=== PATIENT | male | born 1940 | race Caucasian/White ===

== ENCOUNTER → 2017-10-28 | Outpatient (CLI) | payer MEDICARE ==
[~2017-10-28] MED LIST: ACET500 PO; ASPI81CH PO; ATORVASTATIN CA10 MG PO; Aldactone25 MG; Aspir 8181 MG PO; CARV25 PO; CHOL10002; Cvs Heartburn1 EACH PO; DIGOX125 MCG PO; Daily Multiple1 EACH PO; FAMO20; Gaviscon Foamt1 EACH; Isosorbide Mono30 MG PO; LORA10; LOSARTAN POTAS100 MG PO; METFORMIN HCL500 MG PO; PANT40; PANT40 PO; SIMV40; SPIR25 PO; Stool Softener100 MG PO; TORSE20 PO; TRAZ50 PO; TYLENOL PO; Vision Vitamin1 EACH PO; Vitamin D2000 UNIT PO; WARF5 PO
== END ==
LOC: PLD 09:57 → LAB SHORT 09:57
DX: D48.5 Neoplasm of uncertain behavior of skin (principal)
CPT/HCPCS: 88305

== ENCOUNTER → 2017-11-13 | Outpatient (CLI) | payer MEDICARE | END | disposition home or self-care (01) | LOC: PLD 13:55 → LAB SHORT 13:55 | DX: C44.41 Basal cell carcinoma of skin of scalp and neck (principal) | CPT/HCPCS: 88305 ==

== ENCOUNTER → 2018-06-23 | Outpatient (CLI) | payer MEDICARE ==
[~2018-06-23] MED LIST changes: -ACET500 PO; +ASPI81CH; -ASPI81CH PO; +CARV25; -CARV25 PO; -DIGOX125 MCG PO; -Vitamin D2000 UNIT PO; -WARF5 PO
== END | disposition home or self-care (01) ==
LOC: PLD 11:12 → LAB SHORT 11:12
DX: D48.5 Neoplasm of uncertain behavior of skin (principal)
CPT/HCPCS: 88305

== ENCOUNTER 2019-04-13 13:17 | Emergency (ER) | payer MEDICARE ==
[~2019-04-13] VITALS: Ht 180.3 cm; Wt 90.7 kg
[~2019-04-13 13:17] MED LIST changes: +ACET500 PO; -ASPI81CH; +ASPI81CH PO; -CARV25; +CARV25 PO; +DIGOX125 MCG PO; +Vitamin D2000 UNIT PO; +WARF5 PO
[2019-04-13 14:07] LABS: BASOPHILS ABSOLUTE AUTO 0.05 K/mm3 (0.00-0.23); BASOPHILS PERCENT AUTO 1 % (0-2); EOSINOPHILS ABSOLUTE AUTO 0.34 K/mm3 (0.00-0.68); EOSINOPHILS PERCENT AUTO 4 % (0-6); Hemoglobin 14.7 g/dL (13.5-17.5); IMMATURE GRAN ABSOLUTE AUTO 0.09 K/mm3 (0.00-0.10); IMMATURE GRAN PERCENT AUTO 1 % (0-1); LYMPHOCYTES ABSOLUTE AUTO 2.08 K/mm3 (0.84-5.20); LYMPHOCYTES PERCENT AUTO 24 % (21-46); MONOCYTES ABSOLUTE AUTO 0.62 K/mm3 (0.16-1.47); MONOCYTES PERCENT AUTO 7 % (4-13); Mean Corpuscular HGB 31.7 pg (26.0-34.0); Mean Corpuscular HGB Conc 32.7 g/dL (31.5-36.5); Mean Corpuscular Volume 97 fL (80-100); Mean Platelet Volume 9.2 fL (9.1-12.4); NEUTROPHILS PERCENT AUTO 63 % (41-73); Platelet Count 154 K/mm3 (150-400); RDW Coefficient Variation 13.3 % (11.7-14.2); RDW Standard Deviation 47.4 fL (35.1-46.3); Red Blood Cell Count 4.63 M/mm3 (4.30-5.90); White Blood Cell Count 8.68 K/mm3 (4.00-11.30)
[2019-04-13 14:19] LABS: Alanine Aminotransfer (ALT/SGP 35 U/L (12-78); Albumin, Blood 3.6 g/dL (3.4-5.0); Albumin/Globulin Ratio 1.1 (0.8-1.8); Alk Phos 58 U/L (50-136); Anion Gap 5 mmol/L (6-16); Aspartate Aminotrans (AST/SGOT 22 U/L (12-37); Bilirubin, Total 0.5 mg/dL (0.1-1.0); Blood Urea Nitrogen 23 mg/dL (8-24); Bun/Creatinine Ratio 25.4 (12.0-20.0); CO2, Blood 25 mmol/L (21-32); Calcium, Blood 8.3 mg/dL (8.5-10.1); Chloride, Blood 109 mmol/L (98-108); Creatinine, Blood 0.91 mg/dL (0.60-1.20); Globulin, Blood 3.3 g/dL (2.2-4.0); Glomerular Filtration Rate >60 (60-); Glucose, Blood 98 mg/dL (70-99); Potassium, Blood 4.5 mmol/L (3.5-5.5); Sodium, Blood 139 mmol/L (136-145); Total Protein, Blood 6.9 g/dL (6.4-8.2)
[2019-04-13 14:44] LABS: International Normalized Ratio 1.02; Prothrombin Time Results 10.8 Sec (9.7-11.5)
[2019-04-13 14:53] LABS: Digoxin (Lanoxin) 0.75 ug/mL (0.80-2.00)
== END 2019-04-13 17:53 | disposition home or self-care (01) ==
LOC: ER 13:17
PROVIDERS: Emergency Medicine; Physician Assistant
DX: I71.4 Abdominal aortic aneurysm, without rupture (principal); M54.5 Low back pain; G89.29 Other chronic pain; I25.2 Old myocardial infarction; Z95.1 Presence of aortocoronary bypass graft; Z87.891 Personal history of nicotine dependence; Z79.84 Long term (current) use of oral hypoglycemic drugs; Z79.899 Other long term (current) drug therapy; Z79.82 Long term (current) use of aspirin
CPT/HCPCS: 36415; 71275; 72100; 73502; 74175; 80053; 80162; 85025; 85610; 86850; 86900; 86901; 99284-25; Q9967

== ENCOUNTER → 2019-07-20 | Outpatient (CLI) | payer MEDICARE | END | disposition home or self-care (01) | LOC: LAB SHORT 08:12 → PLD 08:12 | DX: L57.0 Actinic keratosis (principal); L57.8 Other skin changes due to chronic exposure to nonionizing radiation; L72.0 Epidermal cyst | CPT/HCPCS: 88305; 88312 ==

== ENCOUNTER → 2020-09-19 | Outpatient (CLI) | payer MEDICARE ==
[2020-09-19 16:19] LABS: Anion Gap 6 mmol/L (6-16); Blood Urea Nitrogen 30 mg/dL (8-24); CO2, Blood 24 mmol/L (21-32); Calcium, Blood 9.6 mg/dL (8.5-10.1); Chloride, Blood 111 mmol/L (98-108); Creatinine, Blood 1.11 mg/dL (0.60-1.20); Glomerular Filtration Rate >60 (60-); Glucose, Blood 111 mg/dL (70-99); Potassium, Blood 4.7 mmol/L (3.5-5.5); Sodium, Blood 141 mmol/L (136-145)
== END ==
LOC: LAB SHORT 15:15 → LAB 15:15
PROVIDERS: Physician Assistant
DX: R06.02 Shortness of breath (principal)
CPT/HCPCS: 80048; 83880

== ENCOUNTER → 2020-10-18 | Outpatient (CLI) | payer MEDICARE | END | disposition home or self-care (01) | LOC: LAB 07:26 → LAB SHORT 07:26 | DX: C44.629 Squamous cell carcinoma of skin of left upper limb, including shoulder (principal) | CPT/HCPCS: 88305 ==

== ENCOUNTER → 2020-11-01 | Outpatient (CLI) | payer MEDICARE | END | disposition home or self-care (01) | LOC: LAB SHORT 08:08 → PLD 08:08 | DX: C44.629 Squamous cell carcinoma of skin of left upper limb, including shoulder (principal) | CPT/HCPCS: 88305 ==

== ENCOUNTER 2021-12-27 11:07 | Day surgery (SDC) | payer MEDICARE ==
[~2021-12-27] VITALS: Ht 215.9 cm; Wt 94.0 kg
[~2021-12-27 11:07] MED LIST changes: +ATOR40TA PO; -ATORVASTATIN CA10 MG PO
--- NOTE | 2021-12-27 13:49 | NUR ---
assumed care of pt. report from sergey oneil. pt sitting up in chair eating lunch. registered nurse cardiac remains in place on pt.
--- NOTE | 2021-12-27 14:06 | NUR ---
PT FINISHED EATING LUNCH. PT RESTING IN CHAIR.
--- NOTE | 2021-12-27 14:34 | NUR ---
PT SITTING UP AT BEDSIDE VISITING WITH FAMILY.
--- NOTE | 2021-12-27 15:03 | NUR ---
PT GIVEN DC INSTRUCTIONS AND VERBALIZED UNDERSTADNING. IV OUT W/ CATH INACT. PT CHANGED INTO CLOTHES. PT TAKEN TO [facility] VIA WC WHERE SO WILL TAKE PT HOME.
== END 2021-12-27 15:17 | disposition home or self-care (01) ==
LOC: MHTC 11:07
DX: Z45.02 Encounter for adjustment and management of automatic implantable cardiac defibrillator (principal); I11.0 Hypertensive heart disease with heart failure; I50.22 Chronic systolic (congestive) heart failure; I25.10 Atherosclerotic heart disease of native coronary artery without angina pectoris; I48.20 Chronic atrial fibrillation, unspecified; I25.5 Ischemic cardiomyopathy; E78.5 Hyperlipidemia, unspecified; Z95.810 Presence of automatic (implantable) cardiac defibrillator; Z79.82 Long term (current) use of aspirin; Z79.899 Other long term (current) drug therapy
CPT/HCPCS: 33263; 99152; 99153; C1721; C1781; J0690; J1644; J2250; J3010; J7030; J7040

== ENCOUNTER → 2022-02-05 | Outpatient (CLI) | payer MEDICARE | END | disposition home or self-care (01) | LOC: LAB SHORT 11:03 → PLD 11:03 | DX: D48.5 Neoplasm of uncertain behavior of skin (principal) | CPT/HCPCS: 88305 ==

== ENCOUNTER 2022-12-10 13:24 | Observation (INO) | payer MEDICARE ==
[~2022-12-10] VITALS: Ht 177.8 cm; Wt 91.6 kg
[~2022-12-10 13:24] MED LIST changes: +Colace100 MG PO; +DIGOX125 MC1 PO; -DIGOX125 MCG PO; +LOSA50 PO; -LOSARTAN POTAS100 MG PO; -Stool Softener100 MG PO
[2022-12-10 14:15] LABS: BASOPHILS ABSOLUTE AUTO 0.04 K/mm3 (0.00-0.23); BASOPHILS PERCENT AUTO 1 % (0-2); EOSINOPHILS PERCENT AUTO 1 % (0-6); Hematocrit 40.8 % (37.0-53.0); Hemoglobin 13.2 g/dL (13.5-17.5); IMMATURE GRAN ABSOLUTE AUTO 0.04 K/mm3 (0.00-0.10); IMMATURE GRAN PERCENT AUTO 1 % (0-1); LYMPHOCYTES ABSOLUTE AUTO 1.26 K/mm3 (0.84-5.20); LYMPHOCYTES PERCENT AUTO 18 % (21-46); MONOCYTES PERCENT AUTO 7 % (4-13); Mean Corpuscular HGB 30.7 pg (26.0-34.0); Mean Corpuscular HGB Conc 32.4 g/dL (31.5-36.5); Mean Corpuscular Volume 95 fL (80-100); Mean Platelet Volume 9.8 fL (9.1-12.4); NEUTROPHILS ABSOLUTE AUTO 5.16 K/mm3 (1.96-9.15); NEUTROPHILS PERCENT AUTO 73 % (41-73); Platelet Count 118 K/mm3 (150-400); RDW Coefficient Variation 14.5 % (11.7-14.2); RDW Standard Deviation 50.3 fL (35.1-46.3)
[2022-12-10 14:51] LABS: Albumin, Blood 3.4 g/dL (3.4-5.0); Albumin/Globulin Ratio 1.1 (0.8-1.8); Bilirubin, Total 0.8 mg/dL (0.1-1.0); Bun/Creatinine Ratio 22.3 (12.0-20.0); Calcium, Blood 9.2 mg/dL (8.5-10.1); Creatinine, Blood 1.3 mg/dL (0.60-1.20); Globulin, Blood 3.2 g/dL (2.2-4.0); Potassium, Blood 4.4 mmol/L (3.5-5.5); Total Protein, Blood 6.6 g/dL (6.4-8.2)
[2022-12-10 15:22] LABS: Digoxin (Lanoxin) 0.53 ug/mL (0.80-2.00)
[2022-12-10 15:40] LABS: Magnesium, Blood 2.2 mg/dL (1.6-2.4); Thyroid Stimulating Hormone 1.76 uIU/mL (0.360-4.800)
[2022-12-10 16:34] LABS: Influenza A, PCR NEGATIVE (NEGATIVE); Influenza B, PCR NEGATIVE (NEGATIVE); Resp Syncytial Virus, PCR NEGATIVE (NEGATIVE); SARS-Cov-2 (COVID-19) PCR, MMC NEGATIVE (NEGATIVE)
[2022-12-10 21:01] VITALS: BP 128/94
--- NOTE | 2022-12-10 21:18 | NUR ---
PT ARRIVED VIA STRETCHER FROM ED, PT ABLE TO AMBULATE TO BED FROM [facility] WITH MINIMAL ASSIST, SOME SOB NOTED. PT AND ORIENTED TO ROOM.
[2022-12-11 01:01] LABS: BASOPHILS ABSOLUTE AUTO 0.04 K/mm3 (0.00-0.23); BASOPHILS PERCENT AUTO 1 % (0-2); EOSINOPHILS PERCENT AUTO 3 % (0-6); Hematocrit 37.7 % (37.0-53.0); Hemoglobin 12.4 g/dL (13.5-17.5); IMMATURE GRAN ABSOLUTE AUTO 0.02 K/mm3 (0.00-0.10); IMMATURE GRAN PERCENT AUTO 0 % (0-1); LYMPHOCYTES ABSOLUTE AUTO 1.56 K/mm3 (0.84-5.20); LYMPHOCYTES PERCENT AUTO 22 % (21-46); MONOCYTES ABSOLUTE AUTO 0.52 K/mm3 (0.16-1.47); MONOCYTES PERCENT AUTO 7 % (4-13); Mean Corpuscular HGB 30.8 pg (26.0-34.0); Mean Corpuscular HGB Conc 32.9 g/dL (31.5-36.5); Mean Corpuscular Volume 94 fL (80-100); Mean Platelet Volume 9.9 fL (9.1-12.4); NEUTROPHILS ABSOLUTE AUTO 4.83 K/mm3 (1.96-9.15); NEUTROPHILS PERCENT AUTO 67 % (41-73); Platelet Count 108 K/mm3 (150-400); RDW Coefficient Variation 14.6 % (11.7-14.2); RDW Standard Deviation 49.7 fL (35.1-46.3); Red Blood Cell Count 4.03 M/mm3 (4.30-5.90); White Blood Cell Count 7.17 K/mm3 (4.00-11.30)
[2022-12-11 01:19] LABS: Albumin, Blood 3.3 g/dL (3.4-5.0); Albumin/Globulin Ratio 1.1 (0.8-1.8); Bilirubin, Total 0.7 mg/dL (0.1-1.0); Bun/Creatinine Ratio 20.9 (12.0-20.0); Calcium, Blood 8.7 mg/dL (8.5-10.1); Creatinine, Blood 1.29 mg/dL (0.60-1.20); Globulin, Blood 2.9 g/dL (2.2-4.0); Potassium, Blood 4.1 mmol/L (3.5-5.5); Total Protein, Blood 6.2 g/dL (6.4-8.2)
[2022-12-11 05:36] VITALS: BP 104/71
[2022-12-11 07:29] VITALS: BP 140/67
[2022-12-11 09:17] VITALS: BP 125/72
[2022-12-11 09:28] LABS: CPK Creatine Kinase 115 U/L (39-308)
[2022-12-11] MEDS ORDERED: ATOR10 PO (11:16)
[2022-12-11] MEDS ORDERED: THERA-D2000 UNIT PO (11:24)
[2023-01-02] MEDS ORDERED: METO10 PO (12:59)
== END 2022-12-11 15:17 | disposition home or self-care (01) ==
LOC: ER 13:24 → MEDS 13:25
PROVIDERS: Emergency Medicine; Student in an Organized Health Care Education/Training Program; ADMIT Internal Medicine
DX: I11.0 Hypertensive heart disease with heart failure (principal); I50.23 Acute on chronic systolic (congestive) heart failure; I25.10 Atherosclerotic heart disease of native coronary artery without angina pectoris; E78.5 Hyperlipidemia, unspecified; E11.9 Type 2 diabetes mellitus without complications; I48.91 Unspecified atrial fibrillation; I25.2 Old myocardial infarction; Z79.899 Other long term (current) drug therapy; Z79.82 Long term (current) use of aspirin; Z87.891 Personal history of nicotine dependence; Z20.822 Contact with and (suspected) exposure to COVID-19
CPT/HCPCS: 0241U; 36415; 71046; 71260; 80053; 80162; 82550; 83690; 83735; 83880; 84443; 84484; 85025; 85379; 93005; 93010; 96374-59; 96376; 99285-25; A9270; G0378; J1940; Q9967

== ENCOUNTER 2023-01-03 17:52 | Inpatient (IN) | payer MEDICARE ==
[~2023-01-03] VITALS: Ht 177.8 cm; Wt 90.7 kg
[~2023-01-03 17:52] MED LIST changes: +ATOR10 PO; +METO10 PO; +THERA-D2000 UNIT PO
[2023-01-03 18:52] LABS: BASOPHILS ABSOLUTE AUTO 0.08 K/mm3 (0.00-0.23); BASOPHILS PERCENT AUTO 1 % (0-2); EOSINOPHILS ABSOLUTE AUTO 0.13 K/mm3 (0.00-0.68); EOSINOPHILS PERCENT AUTO 1 % (0-6); Hematocrit 45.7 % (37.0-53.0); Hemoglobin 14.8 g/dL (13.5-17.5); IMMATURE GRAN ABSOLUTE AUTO 0.03 K/mm3 (0.00-0.10); IMMATURE GRAN PERCENT AUTO 0 % (0-1); LYMPHOCYTES ABSOLUTE AUTO 1.97 K/mm3 (0.84-5.20); LYMPHOCYTES PERCENT AUTO 21 % (21-46); MONOCYTES ABSOLUTE AUTO 0.89 K/mm3 (0.16-1.47); MONOCYTES PERCENT AUTO 10 % (4-13); Mean Corpuscular HGB 30.8 pg (26.0-34.0); Mean Corpuscular HGB Conc 32.4 g/dL (31.5-36.5); Mean Corpuscular Volume 95 fL (80-100); Mean Platelet Volume 10.3 fL (9.1-12.4); NEUTROPHILS PERCENT AUTO 67 % (41-73); Platelet Count 138 K/mm3 (150-400); RDW Coefficient Variation 14.9 % (11.7-14.2); RDW Standard Deviation 52.4 fL (35.1-46.3)
[2023-01-03 19:07] LABS: Albumin, Blood 4.1 g/dL (3.4-5.0); Albumin/Globulin Ratio 1.1 (0.8-1.8); Bilirubin, Total 1.1 mg/dL (0.1-1.0); Bun/Creatinine Ratio 26.7 (12.0-20.0); Calcium, Blood 9.8 mg/dL (8.5-10.1); Creatinine, Blood 1.35 mg/dL (0.60-1.20); Globulin, Blood 3.8 g/dL (2.2-4.0); Potassium, Blood 4.3 mmol/L (3.5-5.5); Total Protein, Blood 7.9 g/dL (6.4-8.2)
[2023-01-04 02:55] LABS: Digoxin (Lanoxin) 0.43 ug/mL (0.80-2.00)
--- NOTE | 2023-01-04 04:57 | NUR ---
NEW ADMIT/CLIENT SUPPORT COORDINATOR SUMMARY PT ADMIT W/ACUTE CHF EXAC. PT ARRIVED TO ROOM AND ABLE TO XFER TO BED W/SBA. PT AND DAUGHTER AT BEDSIDE. PT A/OX4. RESPONDING APPROPRIATELY AND ABLE TO MAKE NEEDS KNOWN. PT ABD FIRM AND DISTENDED. NOTED PT SOB W/ACTIVITY. ON ROOM AIR MAINTAINING SATS. PT ON TELE; AFIB 113 AND VTACH WITH PVC. PT ORIENTED TO ROOM. CALL LIGHT ACCESSIBLE.
[2023-01-04 07:21] LABS: BASOPHILS ABSOLUTE AUTO 0.03 K/mm3 (0.00-0.23); BASOPHILS PERCENT AUTO 0 % (0-2); EOSINOPHILS ABSOLUTE AUTO 0.01 K/mm3 (0.00-0.68); EOSINOPHILS PERCENT AUTO 0 % (0-6); Hematocrit 44.7 % (37.0-53.0); Hemoglobin 14.8 g/dL (13.5-17.5); IMMATURE GRAN ABSOLUTE AUTO 0.02 K/mm3 (0.00-0.10); IMMATURE GRAN PERCENT AUTO 0 % (0-1); LYMPHOCYTES ABSOLUTE AUTO 0.97 K/mm3 (0.84-5.20); LYMPHOCYTES PERCENT AUTO 11 % (21-46); MONOCYTES ABSOLUTE AUTO 0.22 K/mm3 (0.16-1.47); MONOCYTES PERCENT AUTO 3 % (4-13); Mean Corpuscular HGB 31.1 pg (26.0-34.0); Mean Corpuscular HGB Conc 33.1 g/dL (31.5-36.5); Mean Corpuscular Volume 94 fL (80-100); Mean Platelet Volume 10.6 fL (9.1-12.4); NEUTROPHILS ABSOLUTE AUTO 7.24 K/mm3 (1.96-9.15); NEUTROPHILS PERCENT AUTO 85 % (41-73); Platelet Count 123 K/mm3 (150-400); RDW Coefficient Variation 14.9 % (11.7-14.2); RDW Standard Deviation 51.7 fL (35.1-46.3); Red Blood Cell Count 4.76 M/mm3 (4.30-5.90); White Blood Cell Count 8.49 K/mm3 (4.00-11.30)
[2023-01-04 08:10] LABS: Albumin/Globulin Ratio 1.1 (0.8-1.8); Bilirubin, Total 1.1 mg/dL (0.1-1.0); Bun/Creatinine Ratio 28.6 (12.0-20.0); Calcium, Blood 9.6 mg/dL (8.5-10.1); Creatinine, Blood 1.4 mg/dL (0.60-1.20); Globulin, Blood 3.5 g/dL (2.2-4.0); Total Protein, Blood 7.5 g/dL (6.4-8.2)
[2023-01-04 15:20] LABS: CPK Creatine Kinase 102 U/L (39-308)
[2023-01-04 17:08] LABS: Bun/Creatinine Ratio 31.2 (12.0-20.0); Calcium, Blood 9.2 mg/dL (8.5-10.1); Creatinine, Blood 1.41 mg/dL (0.60-1.20); Potassium, Blood 3.6 mmol/L (3.5-5.5)
--- NOTE | 2023-01-04 17:35 | NUR ---
SHIFT SUMMARY: PT A&O X4. PT HAS BEEN VERY PLEASANT AND COOPERATIVE THIS SHIFT. RECEIVED SEVERAL CALLS FROM TELE THIS SHIFT WITH RUNS OF PVC'S WITH THE LAST ONE AT 39 PVC/MIN. PT ASYMPTOMATIC. CALLED DR. SCHAFER. MAG LAB CAME BACK AT 1.7. IV MAGNESIUM GIVEN W/O COMPLICATIONS. PT STATES HIS PCP DOES NOT WANT HIM TO TAKE ANY BLOOD THINNERS DUE TO HAVING A "WATERMELON STOMACH." PT CONTINUES TO HAVE SOB WITH ACTIVITY. PT NEEDED INSULIN COVERAGE FOR LUNCH ONLY. FAMILY AT BEDSIDE. CALL LIGHT IN REACH. BED IN LOWEST POSITION. WILL CONTINUE TO MONITOR.
--- NOTE | 2023-01-05 04:39 | NUR ---
SHIFT SUMMERY. PT HAD SEVERAL FAMILY MEMBERS IN ROOM TO VISIT. PTS STAFYED THE NIGHT AND RESTED IN RECLINER. TALKED TO PT AND FAMILY ABOUT PTS EF AND WHY WHEN PT ACTIVE HE WOULD FEEL SOB AND TIRED AND WHY AFIB ONLY WOULD MAKE HEART LESS EFFECTIVE. PT AND FAMILY VERBALIZED UNDERSTANDING. PT HAD TOLD BLOCKER POLISHING THAT HE WAS SOB AND WANTED A TX PTS SATS ON RA WAS 95% FAMILY WANTED TO KNOW IF PT SHOULD BE ON O2 EXSPLANED THAT PTS SATS WERE GOOD AND HE DID NOT REALY NEED O2 WHITH SAT BEING 95% PT APPEARED TO BE RESTING WELL IN BED. CALL LIGHT IN REACH.
[2023-01-05 05:13] LABS: BASOPHILS ABSOLUTE AUTO 0.05 K/mm3 (0.00-0.23); BASOPHILS PERCENT AUTO 1 % (0-2); EOSINOPHILS ABSOLUTE AUTO 0.12 K/mm3 (0.00-0.68); EOSINOPHILS PERCENT AUTO 1 % (0-6); Hematocrit 38.8 % (37.0-53.0); IMMATURE GRAN ABSOLUTE AUTO 0.02 K/mm3 (0.00-0.10); IMMATURE GRAN PERCENT AUTO 0 % (0-1); LYMPHOCYTES ABSOLUTE AUTO 1.55 K/mm3 (0.84-5.20); LYMPHOCYTES PERCENT AUTO 18 % (21-46); MONOCYTES ABSOLUTE AUTO 0.78 K/mm3 (0.16-1.47); MONOCYTES PERCENT AUTO 9 % (4-13); Mean Corpuscular HGB Conc 33.5 g/dL (31.5-36.5); Mean Corpuscular Volume 93 fL (80-100); NEUTROPHILS PERCENT AUTO 71 % (41-73); Platelet Count 121 K/mm3 (150-400); RDW Coefficient Variation 14.7 % (11.7-14.2); RDW Standard Deviation 50.3 fL (35.1-46.3); Red Blood Cell Count 4.19 M/mm3 (4.30-5.90); White Blood Cell Count 8.72 K/mm3 (4.00-11.30)
[2023-01-05 05:51] LABS: Bun/Creatinine Ratio 39.5 (12.0-20.0); Calcium, Blood 9.1 mg/dL (8.5-10.1); Creatinine, Blood 1.14 mg/dL (0.60-1.20); Potassium, Blood 3.4 mmol/L (3.5-5.5)
[2023-01-05] MEDS ORDERED: TIOT18 INH (13:11)
--- NOTE | 2023-01-05 14:24 | NUR ---
DISCHARGE: PT DISCHARGED AT 1330 VIA AUTOMOBILE PT . PT STATES HE IS BREATHING MUCH BETTER THAN WHEN HE ARRIVED. PT STATES HE HAS FOLLOW-UP APT WITH DR. PORTILLO AND IS AWARE TO MAKE FOLLOW-UP APPOINTMENT WITH PCP. RX MEDICATIONS FAXED TO [facility] ON [address]. IV AND TELE TAKEN OFF BY ANNIE RDZ. ALL BELONGINGS SENT WITH PT.
== END 2023-01-05 13:37 | disposition home or self-care (01) | DRG 291 ==
LOC: ER 17:52 → MEDS 17:53
PROVIDERS: Family Medicine; Student in an Organized Health Care Education/Training Program; ADMIT Internal Medicine
DX: I13.0 Hypertensive heart and chronic kidney disease with heart failure and stage 1 through stage 4 chronic kidney disease, or unspecified chronic kidney disease (principal); I50.23 Acute on chronic systolic (congestive) heart failure; J44.1 Chronic obstructive pulmonary disease with (acute) exacerbation; T82.330A Leakage of aortic (bifurcation) graft (replacement), initial encounter; N18.31 Chronic kidney disease, stage 3a; E11.22 Type 2 diabetes mellitus with diabetic chronic kidney disease; I25.10 Atherosclerotic heart disease of native coronary artery without angina pectoris; I48.91 Unspecified atrial fibrillation; K44.9 Diaphragmatic hernia without obstruction or gangrene; E78.5 Hyperlipidemia, unspecified; K31.819 Angiodysplasia of stomach and duodenum without bleeding; K76.0 Fatty (change of) liver, not elsewhere classified; R79.89 Other specified abnormal findings of blood chemistry; Z95.810 Presence of automatic (implantable) cardiac defibrillator; I25.2 Old myocardial infarction; Z95.1 Presence of aortocoronary bypass graft; Z87.891 Personal history of nicotine dependence; Z79.82 Long term (current) use of aspirin; Z86.16 Personal history of COVID-19; Z79.84 Long term (current) use of oral hypoglycemic drugs; Z79.899 Other long term (current) drug therapy; Y83.2 Surgical operation with anastomosis, bypass or graft as the cause of abnormal reaction of the patient, or of later complication, without mention of misadventure at the time of the procedure
CPT/HCPCS: 36415; 71046; 74177; 80048; 80053; 80162; 82550; 82947; 83735; 83880; 84484; 85025; 93005; 93010; 94640; 94664; 94760; 96365; 96366; 96374-59; 96375; 96376; 99285-25; A9270; G0378; J1940; J3475; J3480; J7512; Q9967

== ENCOUNTER → 2023-02-10 | Outpatient (CLI) | payer MEDICARE ==
[~2023-02-10] MED LIST changes: +TIOT18 INH
== END ==
LOC: PLD 15:17 → LAB SHORT 15:17
DX: D48.5 Neoplasm of uncertain behavior of skin (principal)
CPT/HCPCS: 88305

== ENCOUNTER 2024-01-29 14:22 | Emergency (ER) | payer MEDICARE ==
[~2024-01-29] VITALS: Ht 180.3 cm; Wt 88.5 kg
[2024-01-29 15:09] LABS: BASOPHILS ABSOLUTE AUTO 0.05 K/mm3 (0.00-0.23); BASOPHILS PERCENT AUTO 1 % (0-2); EOSINOPHILS ABSOLUTE AUTO 0.19 K/mm3 (0.00-0.68); EOSINOPHILS PERCENT AUTO 3 % (0-6); Hematocrit 41.7 % (37.0-53.0); Hemoglobin 13.3 g/dL (13.5-17.5); IMMATURE GRAN ABSOLUTE AUTO 0.05 K/mm3 (0.00-0.10); IMMATURE GRAN PERCENT AUTO 1 % (0-1); LYMPHOCYTES ABSOLUTE AUTO 1.05 K/mm3 (0.84-5.20); LYMPHOCYTES PERCENT AUTO 16 % (21-46); MONOCYTES ABSOLUTE AUTO 0.56 K/mm3 (0.16-1.47); MONOCYTES PERCENT AUTO 8 % (4-13); Mean Corpuscular HGB 31.2 pg (26.0-34.0); Mean Corpuscular HGB Conc 31.9 g/dL (31.5-36.5); Mean Corpuscular Volume 98 fL (80-100); NEUTROPHILS ABSOLUTE AUTO 4.74 K/mm3 (1.96-9.15); NEUTROPHILS PERCENT AUTO 71 % (41-73); Platelet Count 109 K/mm3 (150-400); RDW Standard Deviation 60.9 fL (35.1-46.3); Red Blood Cell Count 4.26 M/mm3 (4.30-5.90); White Blood Cell Count 6.64 K/mm3 (4.00-11.30)
[2024-01-29 15:26] LABS: Albumin, Blood 3.9 g/dL (3.4-5.0); Albumin/Globulin Ratio 1.1 (0.8-1.8); Bilirubin, Total 0.8 mg/dL (0.1-1.0); Bun/Creatinine Ratio 25.4 (12.0-20.0); Calcium, Blood 9.3 mg/dL (8.5-10.1); Creatinine, Blood 1.22 mg/dL (0.60-1.20); Globulin, Blood 3.4 g/dL (2.2-4.0); Potassium, Blood 4.7 mmol/L (3.5-5.5); Total Protein, Blood 7.3 g/dL (6.4-8.2)
[2024-01-29 18:00] VITALS: BP 120/89
[2024-01-29 18:26] LABS: Source, Urine Clean Catch
[2024-01-29 18:29] LABS: Appearance, Urine Clear (Clear); Bilirubin, Urine Neg (Neg); Blood, Urine Neg (Neg); Color, Urine Yellow (P-Yellow); Glucose Qualitative, Urine Neg (Neg); Ketones, Urine Neg (Neg); Leukocyte Esterase, Urine Neg (Neg); Nitrite, Urine Neg (Neg); Protein, Urine 2+ (Neg); Urobilinogen, Urine NORM (Normal)
[2024-01-29 18:41] LABS: Bacteria Few /hpf; Red Blood Cells, Urine 0-2 /hpf (0-2); Squamous Epithelial Cells Few /hpf (Few); White Blood Cells, Urine 0-2 /hpf (0-5)
== END 2024-01-29 18:43 | disposition home or self-care (01) ==
LOC: ER 14:22
PROVIDERS: Student in an Organized Health Care Education/Training Program
DX: I71.43 Infrarenal abdominal aortic aneurysm, without rupture (principal); N18.30 Chronic kidney disease, stage 3 unspecified; I50.22 Chronic systolic (congestive) heart failure; E11.22 Type 2 diabetes mellitus with diabetic chronic kidney disease; I48.91 Unspecified atrial fibrillation; Z79.899 Other long term (current) drug therapy; Z79.82 Long term (current) use of aspirin; Z79.84 Long term (current) use of oral hypoglycemic drugs; Z87.891 Personal history of nicotine dependence
CPT/HCPCS: 71046; 74174; 80053; 81001; 83690; 83880; 85025; 93005; 93010; 99285-25; Q9967

== ENCOUNTER 2024-05-21 11:13 | Inpatient (IN) | payer MEDICARE ==
[2024-05-21] VITALS (15 sets, daily range): BP systolic 105–131; BP diastolic 75–113
[~2024-05-21] VITALS: Ht 177.8 cm; Wt 73.5 kg
[~2024-05-21 11:13] MED LIST changes: +BANATROL PLUS1 EAC1 PO; +JARDIANCE10 MG PO; +SPIRIVA RESPIMAT4 G3 INH
[2024-05-21 11:51] LABS: BASOPHILS ABSOLUTE AUTO 0.06 K/mm3 (0.00-0.23); BASOPHILS PERCENT AUTO 1 % (0-2); EOSINOPHILS ABSOLUTE AUTO 0.07 K/mm3 (0.00-0.68); EOSINOPHILS PERCENT AUTO 1 % (0-6); Hematocrit 47.8 % (37.0-53.0); Hemoglobin 15.6 g/dL (13.5-17.5); IMMATURE GRAN ABSOLUTE AUTO 0.03 K/mm3 (0.00-0.10); IMMATURE GRAN PERCENT AUTO 0 % (0-1); LYMPHOCYTES PERCENT AUTO 17 % (21-46); MONOCYTES ABSOLUTE AUTO 0.62 K/mm3 (0.16-1.47); MONOCYTES PERCENT AUTO 8 % (4-13); Mean Corpuscular HGB 31.9 pg (26.0-34.0); Mean Corpuscular HGB Conc 32.6 g/dL (31.5-36.5); Mean Corpuscular Volume 98 fL (80-100); Mean Platelet Volume 9.8 fL (9.1-12.4); NEUTROPHILS ABSOLUTE AUTO 5.49 K/mm3 (1.96-9.15); NEUTROPHILS PERCENT AUTO 73 % (41-73); Platelet Count 138 K/mm3 (150-400); RDW Coefficient Variation 15.2 % (11.7-14.2); RDW Standard Deviation 54.8 fL (35.1-46.3); Red Blood Cell Count 4.89 M/mm3 (4.30-5.90); White Blood Cell Count 7.57 K/mm3 (4.00-11.30)
[2024-05-21 12:09] LABS: Albumin, Blood 4.2 g/dL (3.4-5.0); Albumin/Globulin Ratio 1.1 (0.8-1.8); Bilirubin, Total 1.7 mg/dL (0.1-1.0); Bun/Creatinine Ratio 27.3 (12.0-20.0); Calcium, Blood 9.9 mg/dL (8.5-10.1); Creatinine, Blood 2.05 mg/dL (0.60-1.20); Globulin, Blood 3.9 g/dL (2.2-4.0); Potassium, Blood 5.1 mmol/L (3.5-5.5); Total Protein, Blood 8.1 g/dL (6.4-8.2)
[2024-05-21] MEDS ORDERED: Ipratropium/Albuterol SulF 2.5-0.5MG/3 ML Amp INH ONE (12:30)
[2024-05-21] MEDS ORDERED: Diltiazem HCl 5 MG / ML 5ML Vial IV ONE (12:30)
[2024-05-21] MEDS ORDERED: MethylPREDNISolone Sod Succ 125 MG Vial IV ONE (13:55)
[2024-05-21 14:13] LABS: Influenza A, PCR NEGATIVE (NEGATIVE); Influenza B, PCR NEGATIVE (NEGATIVE); Resp Syncytial Virus, PCR NEGATIVE (NEGATIVE); SARS-Cov-2 (COVID-19) PCR, MMC NEGATIVE (NEGATIVE)
[2024-05-21] MEDS ORDERED: Furosemide 10 MG/ML 4ML Vial IV ONE (14:55)
[2024-05-21] MEDS ORDERED: Torsemide 20 MG TAB PO SCH (18:00)
[2024-05-21] MEDS ORDERED: Metoprolol Succinate 50 MG TABCR PO SCH (18:00)
[2024-05-21] MEDS ORDERED: Insulin Human Lispro 100 Units/ML 3ML Syringe SC SCH (18:00)
[2024-05-21] MEDS ORDERED: Atorvastatin 10 MG Tab PO SCH (21:00)
[2024-05-21] MEDS ORDERED: Metoprolol Tartrate 1 MG/ML 5 ML VIAL IV PRN (21:50)
[2024-05-21 22:19] LABS: Bun/Creatinine Ratio 29.9 (12.0-20.0); Calcium, Blood 9.4 mg/dL (8.5-10.1); Creatinine, Blood 1.94 mg/dL (0.60-1.20); Potassium, Blood 4.5 mmol/L (3.5-5.5)
[2024-05-22] VITALS (16 sets, daily range): BP systolic 106–135; BP diastolic 65–99
[2024-05-22 01:36] LABS: Magnesium, Blood 2.4 mg/dL (1.6-2.4)
[2024-05-22 03:57] LABS: BASOPHILS ABSOLUTE AUTO 0.01 K/mm3 (0.00-0.23); BASOPHILS PERCENT AUTO 0 % (0-2); EOSINOPHILS PERCENT AUTO 0 % (0-6); Hematocrit 43.9 % (37.0-53.0); Hemoglobin 14.4 g/dL (13.5-17.5); IMMATURE GRAN ABSOLUTE AUTO 0.01 K/mm3 (0.00-0.10); IMMATURE GRAN PERCENT AUTO 0 % (0-1); LYMPHOCYTES PERCENT AUTO 16 % (21-46); MONOCYTES ABSOLUTE AUTO 0.05 K/mm3 (0.16-1.47); MONOCYTES PERCENT AUTO 1 % (4-13); Mean Corpuscular HGB 31.5 pg (26.0-34.0); Mean Corpuscular HGB Conc 32.8 g/dL (31.5-36.5); Mean Corpuscular Volume 96 fL (80-100); Mean Platelet Volume 10.2 fL (9.1-12.4); NEUTROPHILS ABSOLUTE AUTO 3.09 K/mm3 (1.96-9.15); NEUTROPHILS PERCENT AUTO 82 % (41-73); Platelet Count 135 K/mm3 (150-400); RDW Coefficient Variation 15.3 % (11.7-14.2); RDW Standard Deviation 53.6 fL (35.1-46.3); Red Blood Cell Count 4.57 M/mm3 (4.30-5.90); White Blood Cell Count 3.76 K/mm3 (4.00-11.30)
[2024-05-22 04:20] LABS: Albumin, Blood 3.9 g/dL (3.4-5.0); Albumin/Globulin Ratio 1.1 (0.8-1.8); Bilirubin, Total 1.5 mg/dL (0.1-1.0); Bun/Creatinine Ratio 30.2 (12.0-20.0); Calcium, Blood 9.4 mg/dL (8.5-10.1); Creatinine, Blood 2.02 mg/dL (0.60-1.20); Globulin, Blood 3.7 g/dL (2.2-4.0); Potassium, Blood 4.3 mmol/L (3.5-5.5); Total Protein, Blood 7.6 g/dL (6.4-8.2)
--- NOTE | 2024-05-22 05:59 | NUR ---
SHIFT SUMMARY PT A&O X4, ALTHOUGH SOME FORGETFULNESS NOTED. VSS; SBP 111 - 130'S, HRR AFIB RANGING MOSTLY FROM 80'S - 1 TEENS WHILE AT REST, 1 TEENS - 120'S WHILE UP. REMAINS ON RA, SPO2 GREATER THAN 94%. PT WITH MODERATE DYSPNEA WITH EXERTION. OCCASSIONAL MILD DYSPNEA WHILE AT REST, PT ABLE TO MAINTAIN AND RECOVER INDEPENDENTLY. DENIES CP/PRESSURE, DIZZINESS, PALPITATIONS, N/V. PT WITH ONE 6 BEAT RUN OF VTACH PER TELE. PT ASYMPTOMATIC AND SLEEPING DURING EVENT. PT USING URINAL OR RESTROOM SBA/NURSE ASSIST WITH GB AND FWW. PT WITH MILD WEAKNESS AND REPORTS "FEELING SO TIRED" BUT FAIRLY STEADY ON HIS FEET. PT REPORTS HAVING SOME "SOFT, LOOSE" STOOLS. REPORTS THIS IS NOT NEW. PT WITH SCATTERED BRUISING T/O AND SKIN TEARS BUE, ON FA AREA D/T RECENT FALLS AT HOME. DENIES GENERAL PAIN THIS SHIFT. BED ALARM ON FOR SAFETY, CALL LIGHT IN REACH. WILL UPDATE ONCOMING RN.
[2024-05-22] MEDS ORDERED: Isosorbide Mononitrate 30 MG TABCR PO SCH (06:00)
[2024-05-22] MEDS ORDERED: Aspirin 81 MG Chew PO SCH (09:00)
[2024-05-22] MEDS ORDERED: Spironolactone 25 MG Tab PO SCH (09:00)
[2024-05-22] MEDS ORDERED: Enoxaparin 30 MG/0.3 ML SYR SC SCH (09:00)
[2024-05-22 09:13] LABS: Magnesium, Blood 2.4 mg/dL (1.6-2.4); Phosphorus, Blood 6.4 mg/dL (2.5-4.9)
--- NOTE | 2024-05-22 09:52 | NUR ---
I SPOKE WITH DR. QUEZADA ABOUT THE PT'S IMDUR AND IF SHE WANTS PARAMETERS BECAUSE IT WAS HELD THIS MORNING ON BALLAST REGULATOR OPERATOR, D/T HOME PARAMETERES OF SBP <120. AFTER REVIEWING HIS BP AND VITALS W/ DR. QUEZADA SHE WANTED ME TO GIVE THE IMDUR NOW.
--- NOTE | 2024-05-22 16:56 | NUR ---
SHIFT SUMMARY THE PT IS ALERT AND ORIENTEDX4, BUT CAN BE FORGETFUL. THREE TIMES TODAY HE FORGOT WHERE HE WAS AND GOT OOB WITHOUT CALLING FOR HELP. HE IS EASILY REORIENTABLE. ON TELE HE HAS BEEN AFIB 80'S-100'S, BP STABLE. HE REMAINS ON RA W/ SP02 >90%. THE PT HAS BEEN AMBULATING TO THE REST ROOM AND AROUND THE UNIT 1P ASSIST W/ FWW. HE HAS STATED MULTIPLE TIMES THAT HE IS READY TO GO HOME. HE IS ACHS CBG CHECKS AND HAS NEEDED 1UNIT OF INSULIN ONCE TODAY. THE PT STATES THAT HE MANAGES HIS DIABETES WITH DIET AT HOME. THE PT HAS HAD MULTIPLE FAMILY MEMBERS VISIT AND THEY WERE UPDATED ON CARE. NO ACUTE EVENTS THIS SHIFT. SEE NOTES FOR UPDATES.
[2024-05-23] VITALS (9 sets, daily range): BP systolic 105–137; BP diastolic 74–82
[2024-05-23] MEDS ORDERED: Melatonin 3 MG Tab PO PRN (00:25)
[2024-05-23 03:49] LABS: BASOPHILS ABSOLUTE AUTO 0.02 K/mm3 (0.00-0.23); BASOPHILS PERCENT AUTO 0 % (0-2); EOSINOPHILS ABSOLUTE AUTO 0.01 K/mm3 (0.00-0.68); EOSINOPHILS PERCENT AUTO 0 % (0-6); Hematocrit 44.5 % (37.0-53.0); Hemoglobin 14.6 g/dL (13.5-17.5); IMMATURE GRAN ABSOLUTE AUTO 0.06 K/mm3 (0.00-0.10); IMMATURE GRAN PERCENT AUTO 0 % (0-1); LYMPHOCYTES ABSOLUTE AUTO 0.87 K/mm3 (0.84-5.20); LYMPHOCYTES PERCENT AUTO 6 % (21-46); MONOCYTES ABSOLUTE AUTO 0.93 K/mm3 (0.16-1.47); MONOCYTES PERCENT AUTO 6 % (4-13); Mean Corpuscular HGB 31.3 pg (26.0-34.0); Mean Corpuscular HGB Conc 32.8 g/dL (31.5-36.5); Mean Corpuscular Volume 96 fL (80-100); Mean Platelet Volume 10.5 fL (9.1-12.4); NEUTROPHILS ABSOLUTE AUTO 13.86 K/mm3 (1.96-9.15); NEUTROPHILS PERCENT AUTO 88 % (41-73); Platelet Count 160 K/mm3 (150-400); RDW Coefficient Variation 15.2 % (11.7-14.2); RDW Standard Deviation 53.5 fL (35.1-46.3); Red Blood Cell Count 4.66 M/mm3 (4.30-5.90); White Blood Cell Count 15.75 K/mm3 (4.00-11.30)
[2024-05-23 04:09] LABS: Albumin, Blood 3.9 g/dL (3.4-5.0); Anion Gap 18 mmol/L (3-11); Blood Urea Nitrogen 81 mg/dL (8-24); Bun/Creatinine Ratio 34.2 (12.0-20.0); CO2, Blood 19 mmol/L (21-32); Calcium, Blood 9.4 mg/dL (8.5-10.1); Chloride, Blood 102 mmol/L (98-108); Creatinine, Blood 2.37 mg/dL (0.60-1.20); Glomerular Filtration Rate 27 (60-); Glucose, Blood 145 mg/dL (70-99); Magnesium, Blood 2.5 mg/dL (1.6-2.4); Phosphorus, Blood 6.4 mg/dL (2.5-4.9); Potassium, Blood 4.7 mmol/L (3.5-5.5); Sodium, Blood 134 mmol/L (136-145)
--- NOTE | 2024-05-23 04:25 | NUR ---
SHIFT SUMMARY PT A&O X4, WITH INCREASING CONFUSION DURING THE NIGHT. PT REDIRECTABLE AND ABLE TO BE REORIENTED QUICKLY. VSS; SBP 120-130'S, AFIB WITH RATE MOSTLY IN 80'S - 90'S, SLIGHT INCREASE WITH ACTIVITY FOR MAJORITY OF SHIFT. AROUND 0400, PT HR BEGAN TRENDING UPWARD; 90 - 100'S AT REST, 1 TEENS - 120'S WITH ACTIVITY, MODERATE SOB NOTED. PT ENDORSES PALPITATIONS. DENIES CP/PRESSURE, DIZZINESS, N/V. 5 MG LOPRESSOR IV PUSH ADMINISTERED; HR DECREASED TO 100'S. OTHERWISE, PT HAD GOOD NIGHT OTHER THAN "NOT BEING ABLE TO SLEEP". PT USING URINAL AT BEDSIDE. BED ALARM ON FOR SAFETY AND PT BECOMING MORE RESTLESS AND CLIMBING OUT OF BED DURING THE NIGHT. PT STATES "I FORGOT I WAS HERE AND THOUGHT I WAS AT HOME." CALL LIGHT IN REACH. REPORT GIVEN TO CARLOS WORRELL AND CARE TRANSFERRED AT THIS TIME.
--- NOTE | 2024-05-23 05:30 | NUR ---
ASSUMED CARE OF PT APPROX 0430 FROM MARIELENA Villaseñor RN. NO ACUTE CHANGES @THIS TIME. TELE AFIB HR LOW 100-105. WILL CONTINUE TO MONITOR.
[2024-05-23] MEDS ORDERED: Empagliflozin 10 MG TAB PO SCH (09:00)
--- NOTE | 2024-05-23 09:48 | NUR ---
DR. QUEZADA CALLED THIS MORNING AND WANTED A REPEAT STANDING WEIGHT. 78.7 KG. SHE ORDERED A UA, BNP, AND PROCALCITONIN. WHILE ON THE PHONE SHE WAS NOTIFIED OF TACHYCARDIA IN THE NIGHT, AND BRIEF TACHYCARDIA POST AMBULATION AFTER THE PT WAS SITTING BACK IN THE CHAIR. SEE NOTES FOR ANY UPDATES.
[2024-05-23 10:38] LABS: Source, Urine Clean Catch
[2024-05-23 10:42] LABS: Appearance, Urine Clear (Clear); Bilirubin, Urine Neg (Neg); Blood, Urine Neg (Neg); Color, Urine Yellow (P-Yellow); Glucose Qualitative, Urine Neg (Neg); Ketones, Urine Neg (Neg); Leukocyte Esterase, Urine Neg (Neg); Nitrite, Urine Neg (Neg); Protein, Urine 2+ (Neg); Urobilinogen, Urine NORM (Normal)
[2024-05-23 10:53] LABS: Bacteria Rare /hpf; Red Blood Cells, Urine 0-2 /hpf (0-2); Squamous Epithelial Cells Rare /hpf (Few); White Blood Cells, Urine 0-2 /hpf (0-5)
[2024-05-23] MEDS ORDERED: Benzonatate 100 MG Cap PO PRN (13:30)
[2024-05-23] MEDS ORDERED: Metoprolol Succinate 50 MG TABCR PO ONE (13:35)
[2024-05-23] MEDS ORDERED: Bumetanide 0.25 MG/ML 4ML ViaL IV SCH (14:00)
[2024-05-23] MEDS ORDERED: Azithromycin 250 MG Tab PO SCH (14:00)
[2024-05-23] MEDS ORDERED: Acetaminophen 325 MG TABLET PO PRN (14:15)
--- NOTE | 2024-05-23 14:31 | NUR ---
MORNING SUMMARY THE PT IS MORE DROWSY TODAY BUT REMAINS ORIENTED. HE IS STILL FORGETFUL BUT REDIRECTABLE. BED ALARM IN USE. HE IS A 1P SBA W/ FWW. ABOUT 1100 HE STARTED HAVING INCREASED WOB. PT REMAINS ON RA W/ SP02 >90% BUT HE C/O SOB AND DYSPNEA AFTER ACITIVITIES. HIS RESP HAVE INCREASED 20'S-30'S. BNP INCREASED DESPITE DIURETICS AND FLUID RESTRICTION. DR. QUEZADA STARTED BUMEX THIS AFTERNOON. ON TELE HE HAS BEEN AFIB 80'S-150'S. HIS HR TOUCHED UP TO 150'S AFTER AMBULATING WHEN HE WAS SITTING. DR QUEZADA INCREASED METOPROLOL DOSE THIS AFTERNOON. THE PT'S FLUID RESTRICTION WAS DECREASED TO 1500CC'S. D/T BUMPED WBC, BODY ACHES, INCREASED SOB, AND DIARRHEA WE DID A RESP PANEL ON THE PT. RESULTS PENDING. THE PT'S FAMILY HAS BEEN AT BEDSIDE AND WAS UPDATED ON CARE. THE PT WILL BE TRANSFERING TO MEDICAL FLOOR THIS SHIFT. SEE NOTE FOR ANY UPDATES.
--- NOTE | 2024-05-23 15:06 | NUR ---
I CALLED DR. QUEZADA BECAUSE THE PT CONTINUES TO COMPLAINE OF PAIN "ALL OVER" HE STATED HE CAN NOT EXPLAIN IT BUT HE FEELS LIKE "SOMETHING IS EXPLOADING INSIDE" AND HE IS HAVING WORSENING SOB. DR. QUEZADA WOULD LIKE THE PT TO HAVE 12.5MG IV FENTANYL OT TO SEE IF THAT WILL HELP WITH PAIN AND RELAX HIM. SEE NOTES FOR UPDATES.
[2024-05-23] MEDS ORDERED: FentaNYL Citrate 50 MCG/ML 2 ML Injection IV ONE (15:10)
[2024-05-23 15:45] LABS: Adenovirus Not Detected (NOT DETECT); Coronavirus 229E Not Detected (NOT DETECT); Coronavirus HKU1 Not Detected (NOT DETECT); Coronavirus NL63 Not Detected (NOT DETECT); Coronavirus OC43 Not Detected (NOT DETECT)
[2024-05-23 15:46] LABS: Bordetella pertussis Not Detected (NOT DETECT); Chlamydophila pneumoniae Not Detected (NOT DETECT); Human Metapneumovirus Not Detected (NOT DETECT); Human Rhinovirus/Enterovirus Not Detected (NOT DETECT); Influenza A/2009-H1 Not Detected (NOT DETECT); Influenza A/H1 Not Detected (NOT DETECT); Influenza A/H3 Not Detected (NOT DETECT); Influenza B Not Detected (NOT DETECT); Mycoplasma pneumoniae Not Detected (NOT DETECT); Parainfluenza Virus 1 Not Detected (NOT DETECT); Parainfluenza Virus 2 Not Detected (NOT DETECT); Parainfluenza Virus 3 Not Detected (NOT DETECT); Parainfluenza Virus 4 Not Detected (NOT DETECT); Respiratory Syncytial Virus Not Detected (NOT DETECT); SARS-Cov-2 (COVID-19), BioFire Not Detected (NOT DETECT)
--- NOTE | 2024-05-23 15:50 | NUR ---
PT TRANSFERED TO ROOM 333. REPORT GIVEN TO MICHELLE Rivers RN. FAMILY AT BEDSIDE.
[2024-05-23] MEDS ORDERED: Albuterol 2.5 MG/3 ML VIAL INH PRN (17:35)
[2024-05-23] MEDS ORDERED: Ipratropium/Albuterol SulF 2.5-0.5MG/3 ML Amp INH SCH (17:35)
--- NOTE | 2024-05-23 17:57 | NUR ---
SHIFT SUMMARY PT TRANSFERED FROM PCU 20 AROUND 1700. PT WAS NOTED TO BE DROWZEY, PT WAS GIVEN FENTYNAL DOWN IN PCU PRIOR TO COMING UP. PT IS NOW MORE ALERT AND AWAKE. PT IS SITTING IN BED VISITING WITH FAMILY WHOM IS AT HIS BEDSIDE. PT NOTED TO BE ON A 1500 FLUID RESTRICTION AND HAS RECIEVED 600 OF THE 1500 AT THIS TIME. PT AND FAMILY HAS BEEN ORINTATED TO ROOM WITH NO QUESTION OR CONCERNS NOTED AT THIS TIME.
[2024-05-23] MEDS ORDERED: GuaiFENesin 600 MG TabCR PO SCH (21:00)
[2024-05-24] VITALS (7 sets, daily range): BP systolic 97–147; BP diastolic 70–117
[2024-05-24 05:21] LABS: BASOPHILS ABSOLUTE AUTO 0.01 K/mm3 (0.00-0.23); BASOPHILS PERCENT AUTO 0 % (0-2); EOSINOPHILS ABSOLUTE AUTO 0.01 K/mm3 (0.00-0.68); EOSINOPHILS PERCENT AUTO 0 % (0-6); Hematocrit 43.1 % (37.0-53.0); Hemoglobin 14.4 g/dL (13.5-17.5); IMMATURE GRAN ABSOLUTE AUTO 0.05 K/mm3 (0.00-0.10); IMMATURE GRAN PERCENT AUTO 0 % (0-1); LYMPHOCYTES ABSOLUTE AUTO 1.06 K/mm3 (0.84-5.20); LYMPHOCYTES PERCENT AUTO 9 % (21-46); MONOCYTES ABSOLUTE AUTO 0.88 K/mm3 (0.16-1.47); MONOCYTES PERCENT AUTO 8 % (4-13); Mean Corpuscular HGB 31.7 pg (26.0-34.0); Mean Corpuscular HGB Conc 33.4 g/dL (31.5-36.5); Mean Corpuscular Volume 95 fL (80-100); Mean Platelet Volume 10.5 fL (9.1-12.4); NEUTROPHILS ABSOLUTE AUTO 9.26 K/mm3 (1.96-9.15); NEUTROPHILS PERCENT AUTO 82 % (41-73); Platelet Count 135 K/mm3 (150-400); RDW Coefficient Variation 15.3 % (11.7-14.2); RDW Standard Deviation 52.4 fL (35.1-46.3); Red Blood Cell Count 4.54 M/mm3 (4.30-5.90); White Blood Cell Count 11.27 K/mm3 (4.00-11.30)
--- NOTE | 2024-05-24 05:26 | NUR ---
SHIFT SUMMARY: PATIENT IS A&OX3, FORGETS TO CALL FOR ASSIST OOB AT TIMES. PATIENT IS SOB WITH ACTIVITY BUT IS ABLE TO MAINTAIN SATS IN MID 90'S ON RA. PATIENT REQUIRES MINIMAL ASSIST TO THE BATHROOM TO VOID AND HAS HAD TWO BM'S THIS SHIFT. TOWER WATCHMAN CALLED TO REPORT @1923 6 BEATS OF ALTERNATING BUNDLES, @ 2258 BYGEMITY AND @ 0355 A 6 BEAT RUN OF V-TACH, THEN BACK TO A-FIB WITH PVC'S. VSS AND PATIENT IS ASYMPTOMATIC WITH RYTHM CHANGES. THE RYTHM CHANGES DO NOT SEEM TO BE RELATED TO ACTIVITY.
[2024-05-24 05:44] LABS: Albumin, Blood 3.9 g/dL (3.4-5.0); Anion Gap 18 mmol/L (3-11); Blood Urea Nitrogen 100 mg/dL (8-24); Bun/Creatinine Ratio 35.7 (12.0-20.0); CO2, Blood 20 mmol/L (21-32); Calcium, Blood 9.6 mg/dL (8.5-10.1); Chloride, Blood 101 mmol/L (98-108); Glomerular Filtration Rate 22 (60-); Glucose, Blood 110 mg/dL (70-99); Magnesium, Blood 2.6 mg/dL (1.6-2.4); Phosphorus, Blood 7.1 mg/dL (2.5-4.9); Potassium, Blood 4.4 mmol/L (3.5-5.5); Sodium, Blood 135 mmol/L (136-145)
[2024-05-24] MEDS ORDERED: Metoprolol Succinate 50 MG TABCR PO SCH (09:00)
--- NOTE | 2024-05-24 10:52 | NUR ---
DAUGHTER INFO: SHARAD AT [phone].
[2024-05-24] MEDS ORDERED: Bumetanide 0.25 MG/ML 4ML ViaL IV ONE (16:40)
[2024-05-24] MEDS ORDERED: Bumetanide 0.25 MG/ML 10ML Vial IV ONE ×2 (17:30→18:30)
[2024-05-24] MEDS ORDERED: NS 1,000 ML IV SCH (19:30)
[2024-05-24 19:48] LABS: BASOPHILS ABSOLUTE AUTO 0.01 K/mm3 (0.00-0.23); BASOPHILS PERCENT AUTO 0 % (0-2); EOSINOPHILS ABSOLUTE AUTO 0.08 K/mm3 (0.00-0.68); EOSINOPHILS PERCENT AUTO 1 % (0-6); Hematocrit 44.3 % (37.0-53.0); Hemoglobin 14.6 g/dL (13.5-17.5); IMMATURE GRAN ABSOLUTE AUTO 0.05 K/mm3 (0.00-0.10); IMMATURE GRAN PERCENT AUTO 1 % (0-1); LYMPHOCYTES ABSOLUTE AUTO 1.12 K/mm3 (0.84-5.20); LYMPHOCYTES PERCENT AUTO 11 % (21-46); MONOCYTES ABSOLUTE AUTO 1.05 K/mm3 (0.16-1.47); MONOCYTES PERCENT AUTO 10 % (4-13); Mean Corpuscular HGB 31.3 pg (26.0-34.0); Mean Corpuscular Volume 95 fL (80-100); Mean Platelet Volume 10.2 fL (9.1-12.4); NEUTROPHILS ABSOLUTE AUTO 7.84 K/mm3 (1.96-9.15); NEUTROPHILS PERCENT AUTO 77 % (41-73); Platelet Count 143 K/mm3 (150-400); RDW Coefficient Variation 15.2 % (11.7-14.2); RDW Standard Deviation 52.5 fL (35.1-46.3); Red Blood Cell Count 4.66 M/mm3 (4.30-5.90); White Blood Cell Count 10.15 K/mm3 (4.00-11.30)
--- NOTE | 2024-05-24 19:49 | NUR ---
SUMARY- PT A/O X3-4, UP WITH SBA WALKER IN MATI[place], INDEPENDANT TO BATHROOM MOST OF THE DAY. CARDIOLOGY CONSULT IN RELATION TO LOW EF COMPARED TO PREVIOUS. DR CARRERA HERE AROUND 1430 TO BONIFACIO PT. ORDERED BUMEX 4MG TO BE ADMIN. ALSO SPOKE WITH DR ROMO AND DISCUSSED PT'S CONDITION. NEPH CONSULT PLACED. PT HAD 2 EPISODES OF SUDDEN ONSET LETHARGY. FAMILY CALLED RN INT TO BONIFACIO PT. AT 1800 PT BECAME "EXHAUSTED" IN CHAIR, EYES CLOSED, ABLE TO ANSWER QUESTIONS APPROPRIATELY, DENIES CHEST PAIN , DENIES DIZZINESS, C/O SOB, AND RN AND FAMILY NOTED PERIODS OF APNEA. CALLED DR RANDALL, OBTAINED EKG AND LABE, BLOOD SUGAR 145. VSS. ORDER TO START NS AND REJI PT. ALL REORTED TO ZHAO MTZ RN TO TAKE OVER.
--- NOTE | 2024-05-24 19:56 | NUR ---
UNABLE TO OBTAIN ACCURATE I/O BECAUSE PT INSISTS ON VOIDING IN TOILET AND REFUSES TO USE THE URINAL DESPITE EXPLANATION OF TRYING TO GET ACCURATE I/O/
--- NOTE | 2024-05-24 19:57 | NUR ---
SPOKE WITH DAUGHTER AND SON IN THE HALLWAY REGUARDING CODE STATUS AND DISCUSSED PT'S CHF AND POOR RENAL FUNCTION. EXPLAINED HOW CPR CAN HE VERY TRAUMATIZING TO A BODY AND CAN BREAK RIBS AND A LOT OF TIMES NOT EXTEND ANY QUALITY OF LIFE. THEY STATE THAT IT'S THEIR DADS WITH TO DO ALL YOU CAN TO SAVE MY LIFE. TOLD THEM WE WOULD HAVE PALLIATIVE RN SPEAK WITH THEM IN THE AM.
[2024-05-24 20:06] LABS: Base Excess Venous -6.7 mmol/L; Bicarbonate Venous 19.6 mmol/L (24.0-30.0); PCO2 Venous 33.5 mmHg (38-42); pH Blood Venous 7.36 (7.34-7.37)
[2024-05-24 20:08] LABS: Albumin, Blood 4.1 g/dL (3.4-5.0); Albumin/Globulin Ratio 1.2 (0.8-1.8); Bilirubin, Total 1.5 mg/dL (0.1-1.0); Bun/Creatinine Ratio 38.1 (12.0-20.0); Calcium, Blood 9.7 mg/dL (8.5-10.1); Creatinine, Blood 2.7 mg/dL (0.60-1.20); Globulin, Blood 3.3 g/dL (2.2-4.0); Potassium, Blood 4.3 mmol/L (3.5-5.5); Total Protein, Blood 7.4 g/dL (6.4-8.2)
[2024-05-24] MEDS ORDERED: Metoprolol Tartrate 1 MG/ML 5 ML VIAL IV ONE (21:45)
--- NOTE | 2024-05-24 22:16 | NUR ---
CARDIAC: LATE ENTRY FOR 0 SHIFT PATIENT WAS SITTING IN THE RECLINNER, LEATHARGIC WITH EYE'S CLOSED. VSS, PATIENT IS ANSWERING QUESTIONS AND IS ABLE TO TRANSFER FROM THE CHAIR TO THE BED WITH HAEVY ASSIST OF TWO AND GB. EKG WAS DONE AND DR RANDALL WAS CALLED AND CAME TO THE BEDSIDE TO EVALUTE PATIENT. ORDERS WERE OBTAINED FOR IVF TO INFUSE AT 75ML/HR AND STAT LABS AND CONTINUOS PILSE OX. FAMILY IS AT THE BEDSIDE.
--- NOTE | 2024-05-24 22:48 | NUR ---
CARDIAC: @ 2119 DENTAL INTERNSHIP CALLED TO REPORT HR WAS BUMPING UP INTO THE 150'S AND SUSTAINING IN THE 130'S. AT THIS TIME PATIENT IS HAVING PERIODS OF SOB AND ANXIETY. FAMILY REMAINS AT BEDSIDE. DR RANDALL IS CALLED AND ORDERS FOR METOPROLOL 5M IV X1. MED WAS GIVEN WITH FAIR EFFECT. HR STILL BUMPING UP TO 140'S NON SUSTAINING, RANGING 99-147.
--- NOTE | 2024-05-24 23:00 | NUR ---
CARDIAC: PATIENT CONTINUES TO BE RESTLESS, " I AM SCARED, I HURT ALL OVER". PATIENT HAS FEELING OF INPENDING DOOM. DR RANDALL IS CALLED AGAIN. ORDER FOR STAT TROPONIN AND TRANSFER TO PCU. NURSING SUP. IS NOTIFIED.
[2024-05-25] VITALS (69 sets, daily range): BP systolic 82–135; BP diastolic 54–103
[2024-05-25] MEDS ORDERED: Morphine Sulfate 4 MG/1 ML Injection IV PRN (00:30)
[2024-05-25] MEDS ORDERED: Digoxin 0.25 MG/ML 2ML Amp IV STA (01:36)
--- NOTE | 2024-05-25 02:20 | NUR ---
PT TRANSFERRED TO PCU FROM MEDICAL FLOOR AT 0000, THEN TRANSFERRED TO ICU AROUND 0210. THIS RN ATTEMPTED TO CALL FAMILY, NO ANSWER. THIS RN LEFT VERY BRIEF VOICEMAIL TO DAUGHTER JADA FOR A CALL BACK. WILL ATTEMPT TO CALL SONAL AT THIS TIME.
--- NOTE | 2024-05-25 02:29 | NUR ---
ASSUMPTION OF CARE PT ARRIVED TO PCU AT 0000 FROM MEDICAL FLOOR. PT ON 2 LPM NC AT THIS TIME SPO2 WNL, HOWEVER WOB INCREASED INTO 30 - 40'S. PT VERY RESTLESS AT THIS TIME, STATES HE IS "IN A LOT OF PAIN". PT REPORTS SIGNIFICANT PAIN IN HIS ABDOMINAL AREA STATES IT FEELS "HEAVY" AND THAT HIS BACK "IS KILLING" HIM. PT ALSO STATES PAIN IS GOING THROUGHOUT HIS WHOLE BODY. ALSO REPORTS TINGLING THROUGOUT HIS BODY. SBP 120 - 130'S, HRR AFIB WITH RVR IN 140 - 160'S. PT WITH CRACKLES TO BASES OF LUNGS. PT'S ABD SEVERELY DISTENDED AND TENDER. PT'S EXTREMITIES COLD TO THE TOUCH AND DUSKY, MILD MOTTLING NOTED. PT FACE AND EARS ALSO APPEARING DUSKY AT THIS TIME. PCU CHARGE IN ROOM TO EVALUATE PT, 5 MG IV LOPRESSOR PUSH ADMINISTERED BY FOURTH GRADE TEACHER. ICU CHARGE ALSO NOTIFIED AND TO BEDSIDE TO ASSESS AND EVALUATE PT. FOURTH GRADE TEACHER NOTIFIED THAT PT NAUSEOUS AND DRY HEAVING WITHOUT EMESIS. THIS RN STEPPED OUT OF ROOM TO NOTIFY HOSPITALIST AND VP GENETIC WHO REFERRED TO HOSPITALIST FOR MORE CARE. HOSPITALIST CONTACTED - NEW ORDERS FOR CT OF ABD WITHOUT CONTRAST D/T PT'S KIDNEY FUNCTION, BOLUS OF AMIO AND AFTERWARDS TO START MAINTAINENCE GTT, MORPHINE IV 2-4 MG Q1 PRN, AND CPAP PROTOCOL. RT IN TO SET UP CPAP, PT NOT TOLERATING WELL AND CONTINUES TO TRY AND REMOVE MASK. PT CONTINUES TO BE RESTLESS AND TALKING ABOUT HIS PAIN EVEN AFTER ADMINISTRATION OF MORPHINE 4 MG IV. PT TAKEN TO CT BY THIS RN AND OTHER STAFF TO COMPLETE IMAGING. HOSPITALIST NOTIFIED CT COMPLETE. UPON RETURN FROM CT IMAGING, HOSPITALIST TO BEDSIDE TO ASSESS AND EVALUATE PT. NEW ORDERS FOR ONE TIME DIGOXIN IV AND ICU TRANSFER ORDERS. PRIOR TO TRANSFER TELE SHOWED 15 BEAT RUN OF V-TACH, The Filter NOTIFIED THIS RN. PT TRANSFERRED TO ICU ON CARDIAC MONITORING AND CPAP WITH 6 LPM BLEED IN. AMIO GTT INFUSING PER EMAR.
[2024-05-25 03:18] LABS: BASOPHILS ABSOLUTE AUTO 0.01 K/mm3 (0.00-0.23); BASOPHILS PERCENT AUTO 0 % (0-2); EOSINOPHILS ABSOLUTE AUTO 0.03 K/mm3 (0.00-0.68); EOSINOPHILS PERCENT AUTO 0 % (0-6); Hematocrit 49.4 % (37.0-53.0); Hemoglobin 15.8 g/dL (13.5-17.5); IMMATURE GRAN ABSOLUTE AUTO 0.09 K/mm3 (0.00-0.10); IMMATURE GRAN PERCENT AUTO 1 % (0-1); LYMPHOCYTES ABSOLUTE AUTO 0.77 K/mm3 (0.84-5.20); LYMPHOCYTES PERCENT AUTO 7 % (21-46); MONOCYTES ABSOLUTE AUTO 0.78 K/mm3 (0.16-1.47); MONOCYTES PERCENT AUTO 8 % (4-13); Mean Corpuscular HGB 31.4 pg (26.0-34.0); Mean Corpuscular Volume 98 fL (80-100); Mean Platelet Volume 10.3 fL (9.1-12.4); NEUTROPHILS ABSOLUTE AUTO 8.76 K/mm3 (1.96-9.15); NEUTROPHILS PERCENT AUTO 84 % (41-73); NRBC ABSOLUTE 0.04 K/mm3 (0.00-0.02); NRBC Auto 0.4 /100 WBC (0.0-0.2); Platelet Count 134 K/mm3 (150-400); RDW Coefficient Variation 15.5 % (11.7-14.2); RDW Standard Deviation 55.7 fL (35.1-46.3); Red Blood Cell Count 5.03 M/mm3 (4.30-5.90); White Blood Cell Count 10.44 K/mm3 (4.00-11.30)
--- NOTE | 2024-05-25 03:20 | NUR ---
ASSUMPTION OF CARE PT ARRIVED TO ICU 6 AT 0152 FROM PCU, WITH CPAP MASK ON , SUPPLEMENTED WITH 5L O2, AND AMIODARONE INFUSING AT 1 MCG/KG/HR. PT RESTLESS AND SQUIRMY, HAVING TO BE HELD DOWN MY NURSES. FOLLOWING BED TRANSFER, A POERGLIDE WAS PLACED IN THE RIGHT ARM AND AMIODARONE WAS RESTARTED AT 1, PRECEDEX WAS STARTED AT 0.2 MCG/KG/HR AND TITRATED UP TO 0.7 AND THEN BACK DOWN TO 0.5. PT HR IN 130S A FIB RVR. PT DISPLAYED A 10 TO 20 BEAT RUN OF V TACH SEVERAL MINUTES BEFORE ARRIVAL TO ICU. DIGOXIN WAS GIVEN 0.5ML OF 0.125 NG/ML CONCENTRATION IV PUSH. PT BP HAS REMAINED STABLE SINCE ARRIVAL WITH MAP AVERAGE OF 90. PT PRESENTED WITH DUSKY SKIN PARTICULARY IN HEAD/EARS AND EXTREMITIES. SMITH PLACED FOR CRITICAL IS AND OS. ABDOMEN SEVERELY DISTENDED WITH A COUPLE OF FIRM AREAS PALPABLE. PT BEGAIN TO CALM DOWN AFTER ABOUT AN HOUR. FAMILY IS AT BEDSIDE.
[2024-05-25 03:24] LABS: Source, Urine Foley catheter
[2024-05-25 03:27] LABS: Bilirubin, Urine Neg (Neg); Blood, Urine Neg (Neg); Glucose Qualitative, Urine 1+ (Neg); Ketones, Urine Neg (Neg); Leukocyte Esterase, Urine Neg (Neg); Nitrite, Urine Neg (Neg); Protein, Urine 3+ (Neg); Specific Gravity, Urine 1.015 (1.003-1.022); Urobilinogen, Urine NORM (Normal)
[2024-05-25 03:28] LABS: PCO2 Arterial 20.7 mmHg (35-45); PO2 Arterial 188 mmHg (80-100)
[2024-05-25 03:31] LABS: Appearance, Urine Clear (Clear); Color, Urine Yellow (P-Yellow)
[2024-05-25 03:35] LABS: Bun/Creatinine Ratio 34.6 (12.0-20.0); Calcium, Blood 9.7 mg/dL (8.5-10.1); Creatinine, Blood 2.95 mg/dL (0.60-1.20); Potassium, Blood 5.8 mmol/L (3.5-5.5)
[2024-05-25 04:20] LABS: Amorphous Light (0-Heavy); Bacteria Not Seen /hpf; Red Blood Cells, Urine Not Seen /hpf (0-2); Squamous Epithelial Cells Not Seen /hpf (Few); White Blood Cells, Urine Not Seen /hpf (0-5)
[2024-05-25] MEDS ORDERED: Sodium Bicarb 8.4% Inj 50 MEQ IV ONE (05:20)
[2024-05-25] MEDS ORDERED: Sodium Bicarb 8.4% 1 MEQ/ML 50 ML Vial IV ONE (05:25)
--- NOTE | 2024-05-25 06:31 | NUR ---
END OF SHIFT SUMMARY PT PRECEDEX GTT TITRATED DOWN TO 0.2MCG/KG/HR DUE TO RASS OF -3; HE IS STARTING TO BECOME MORE RESPONSIVE AND TOLERATING CPAP BETTER NOW. CONT TO BE ON CPAP WITH AUTO SETTINGS AND 5L BLEED IN; ABG COMPLETED AND DR COLES CALLED WITH RESULTS; NEW ORDERS PROVIDED. HR IMPROVED TO 70-80'S AFIB WITH FREQUENT PVC'S AND OCCATIONAL PACER SPIKES FROM AICD; AMIODERONE INFUSING AT 1MG/MIN. BP STABLE WITH MAP'S 65-90 AND SBP 80-120'S. ABD CONT TO BE LARGELY DISTENDED; DR COLES PROVIDED ORDERS TO HAVE ABD ULTRASOUND TO BE COMPLETED TODAY. SMITH IN PLACE WITH 500ML AMOUNT OF URINE OUTPUT. DUSKY SKIN HAS SLIGHTLY IMPROVED TO BILATERAL FEET AND EARS/FACE. PT AND DAUGHTER CONT TO BE AT BEDSIDE AND IS APPROPRIATE. POWERGLIDE TO RUE PATENT. WILL REPORT TO AM RN WHEN AVAILABLE.
[2024-05-25 07:33] LABS: Base Excess Venous -4.1 mmol/L; Bicarbonate Venous 20.6 mmol/L (24.0-30.0); PCO2 Venous 40.3 mmHg (38-42); pH Blood Venous 7.34 (7.34-7.37)
[2024-05-25 08:49] LABS: Base Excess Venous -3.5 mmol/L; pH Blood Venous 7.38 (7.34-7.37)
[2024-05-25] MEDS ORDERED: METOPROLOL TARTRATE IV SCH (10:10)
[2024-05-25] MEDS ORDERED: Bumetanide 0.25 MG/ML 4ML ViaL IV SCH (10:29)
[2024-05-25 10:33] LABS: Bun/Creatinine Ratio 36.6 (12.0-20.0); Calcium, Blood 9.2 mg/dL (8.5-10.1); Creatinine, Blood 2.92 mg/dL (0.60-1.20); Potassium, Blood 4.4 mmol/L (3.5-5.5)
--- NOTE | 2024-05-25 10:53 | NUR ---
Spiritual Care Visit. Pt. is mostly not responsive. 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 Facilitate a short life review and consider matters of wilfred and belief. The visit was mostly introductory and displayed evidence of having a positive affect. Prayed over the Pt. Pts. daughter and son both verbalize gratitude for the spiritual care visit and welcome this registration scheduling specialist to return.
[2024-05-25] MEDS ORDERED: FentaNYL Citrate 50 MCG/ML 2 ML Injection IV PRN (11:45)
--- NOTE | 2024-05-25 13:02 | NUR ---
REASSESSMENT PT HAS BEEN OBTUNDED THROUGHOUT THE MORNING, BUT IS NOW STARTING TO OPEN HIS EYES AND FOLLOW COMMANDS. PRECEDEX WAS TURNED OFF AROUND 0800. DR. CARRERA AND DR. RENE MET WITH PT'S TRISTAN AND HIS TO DISCUSS PROGNOSIS. FAMILY DECIDED TO MAKE PT DNR, BUT CONTINUE FULL CARE. DNR BRACELET ON R WRIST. PT CONTINUES TO HAVE APNEIC EPISODES, BUT MAINTAINS SPO2 ABOVE 90% ON 2L/NC. LUNGS CLEAR. PT IS AFIB WITH RATE IN THE 60S AND 70S, FREQUENT PVC, OCCASIONAL PACER SPIKES. [facility] CAME AND TURNED OFF PT'S ICD AFTER DECISION TO BE DNR. METOPROLOL GTT STARTED IN ADDITION TO AMIODARONE PER DR. CARRERA. PT HAS BEEN NPO THIS MORNING DUE TO MENTATION. SMITH DRAINING CL YELLOW URINE. DR. FUNES CONSULTED AND SPOKE WITH PT'S FAMILY.
[2024-05-25] MEDS ORDERED: CefTRIAXone Sodium 1,000 MG in NS 100 ML IV SCH (14:00)
[2024-05-25 14:11] LABS: Albumin, Blood 3.6 g/dL (3.4-5.0); Albumin/Globulin Ratio 1.3 (0.8-1.8); Bilirubin, Direct 0.9 mg/dL (0.0-0.3); Bilirubin, Indirect 1.2 mg/dL (0.1-0.7); Bilirubin, Total 2.1 mg/dL (0.1-1.0); Globulin, Blood 2.7 g/dL (2.2-4.0); Total Protein, Blood 6.3 g/dL (6.4-8.2)
--- NOTE | 2024-05-25 18:03 | NUR ---
SHIFT SUMMARY PT HAS SLOWLY WOKEN UP THROUGHOUT THE SHIFT. HE IS ABLE TO FOLLOW COMMANDS, ORIENTED TO PLACE, THOUGHT THE YEAR WAS 2019. HE FALLS BACK ASLEEP QUICKLY WHEN LEFT ALONE. LUNGS ARE CLEAR, REMAINS IN AFIB WITH FREQUENT PVC. BP STABLE, AMIO AND METOPROLOL GTTS INFUSING. REMAINED NPO TODAY DUE TO MENTATION. GOOD OUTPUT FROM SMITH. FAMILY WAS AT BEDSIDE THROUGHOUT THE SHIFT AND HAS BEEN UPDATED THROUGHOUT.
--- NOTE | 2024-05-25 22:42 | NUR ---
SPOKE WITH DR. ALEJANDRO REGARDING AMIODARONE DRIP. CLARIFIED THAT IT WILL BE TURNED OFF AT 0100.
[2024-05-26] VITALS (23 sets, daily range): BP systolic 104–147; BP diastolic 55–108
--- NOTE | 2024-05-26 02:21 | NUR ---
PATIENT AWAKE AND ALERT, ASKING FOR WATER, SLOWLY GIVEN SIPS OF WATER, WITH NO COUGHING OR CHOKING. ABLE TO DRINK WITHOUT DIFFICULTY. HEART RATE STILL CONTROLLED DESPITE AMIODARONE BEING OFF.
[2024-05-26 04:05] LABS: BASOPHILS ABSOLUTE AUTO 0.02 K/mm3 (0.00-0.23); BASOPHILS PERCENT AUTO 0 % (0-2); EOSINOPHILS ABSOLUTE AUTO 0.02 K/mm3 (0.00-0.68); EOSINOPHILS PERCENT AUTO 0 % (0-6); Hematocrit 46.3 % (37.0-53.0); Hemoglobin 15.6 g/dL (13.5-17.5); IMMATURE GRAN ABSOLUTE AUTO 0.06 K/mm3 (0.00-0.10); IMMATURE GRAN PERCENT AUTO 1 % (0-1); LYMPHOCYTES ABSOLUTE AUTO 0.71 K/mm3 (0.84-5.20); LYMPHOCYTES PERCENT AUTO 8 % (21-46); MONOCYTES ABSOLUTE AUTO 0.83 K/mm3 (0.16-1.47); MONOCYTES PERCENT AUTO 9 % (4-13); Mean Corpuscular HGB 31.5 pg (26.0-34.0); Mean Corpuscular HGB Conc 33.7 g/dL (31.5-36.5); NEUTROPHILS ABSOLUTE AUTO 7.89 K/mm3 (1.96-9.15); NEUTROPHILS PERCENT AUTO 83 % (41-73); NRBC ABSOLUTE 0.02 K/mm3 (0.00-0.02); NRBC Auto 0.2 /100 WBC (0.0-0.2); RDW Coefficient Variation 15.1 % (11.7-14.2); RDW Standard Deviation 51.8 fL (35.1-46.3); Red Blood Cell Count 4.96 M/mm3 (4.30-5.90); White Blood Cell Count 9.53 K/mm3 (4.00-11.30)
[2024-05-26 04:06] LABS: Mean Corpuscular Volume 93 fL (80-100)
[2024-05-26 04:13] LABS: Albumin/Globulin Ratio 1.2 (0.8-1.8); Bun/Creatinine Ratio 38.4 (12.0-20.0); Calcium, Blood 9.5 mg/dL (8.5-10.1); Creatinine, Blood 2.63 mg/dL (0.60-1.20); Globulin, Blood 3.2 g/dL (2.2-4.0); Phosphorus, Blood 5.7 mg/dL (2.5-4.9); Potassium, Blood 4.4 mmol/L (3.5-5.5); Total Protein, Blood 7.2 g/dL (6.4-8.2)
[2024-05-26 04:25] LABS: Platelet Count 106 K/mm3 (150-400)
--- NOTE | 2024-05-26 09:30 | NUR ---
AM NOTE... ASSUMED CARE OF PT AT 0700, PT IS A&Ox4. PT WAS ON 2L NC THIS WAS STOPPED AT THE TIME OF THIS AM ASSESSMENT 0730. PT'S L/S DIM T/O FINE CRACKLES NOTED IN THE BASES. O2 SATS>92% ON RA. PT IS IN AFIB w/BBB AND FREQUENT PVCs. 1+ EDEMA NOTED TO HIS BLE. PT IS ON A METOPROLOL GTT RUNNING AT 5MG/HR PT'S RATE IS 80'S-90'S BP IS STABLE WITH MAPS>65. BT PRESENT AND HYPOACTIVE, ABD IS FIRM AND TENDER TO PALPATION. PT'S SMITH IS PATENT AND DRAINING TO GRAVITY. WILL CONTINUE TO MONITOR.
--- NOTE | 2024-05-26 17:47 | NUR ---
SHIFT SUMMARY.... NO ACUTE NEGATIVE CHANGES NOTED THIS SHIFT. PT HAS BEEN ON RA T/O THIS SHIFT WITH O2 SATS>92%, PT HAS BEEN UP TO THE RECLINER CHAIR FOR LUNCH AND DINNER THIS SHIFT. PT CONTINUES TO BE ON 1500L FLUID RESTRICTION. PT HAS NOT HAD A BM THIS SHIFT. PT'S MSITH IS PATENT AND DRAINING TO GRAVITY. PT CONTINUES TO BE IN AFIB W/BBB AND FREQUENT PVCs, PT DENIES CHEST PAIN/PRESSURE. BP HAS BEEN STABLE T/O THIS SHIFT WITH MAPS>65. PT'S AND DAUGHTER AT THE BEDSIDE MOST OF THIS SHIFT. SOFTWARE DEPLOYMENT ENGINEER UPDATED ON THE PT'S CONDITION, ORDERS TO D/C THE METOPROLOL DRIP AND START ORAL MEDS WERE GIVEN. CALL LIGHT IN REACH WILL CONTINUE TO MONITOR UNTIL REPORT IS GIVEN TO ONCOMING RN.
--- NOTE | 2024-05-26 19:00 | NUR ---
ASSUMED CARE ASSUMED CARE OF PATIENT. AWAKE AND ALERT. ORIENTED TO SELF, PLACE, MONTH/YEAR. COOPERATIVE WITH CARE. DENIES C/O PAIN OR NAUSEA. MONITOR SHOWS AFIB WITH BBB AND PVCs, RATE 80s-100s. BP STABLE. AFEBRILE. RA SATS 96%. RESPIRATIONS EVEN AND UNLABORED. SMITH PATENT AND DRAINING TO GRAVITY. FLUID RESTRICTION CONTINUES PER ORDER. SEE SHIFT ASSESSMENT FOR FULL ASSESSMENT.
[2024-05-26] MEDS ORDERED: Metoprolol Succinate 50 MG TABCR PO SCH (21:00)
[2024-05-27] VITALS (14 sets, daily range): BP systolic 93–137; BP diastolic 65–99
[2024-05-27 04:54] LABS: BASOPHILS ABSOLUTE AUTO 0.01 K/mm3 (0.00-0.23); BASOPHILS PERCENT AUTO 0 % (0-2); EOSINOPHILS PERCENT AUTO 1 % (0-6); Hematocrit 47.8 % (37.0-53.0); Hemoglobin 16.1 g/dL (13.5-17.5); IMMATURE GRAN ABSOLUTE AUTO 0.03 K/mm3 (0.00-0.10); IMMATURE GRAN PERCENT AUTO 0 % (0-1); LYMPHOCYTES ABSOLUTE AUTO 1.18 K/mm3 (0.84-5.20); LYMPHOCYTES PERCENT AUTO 13 % (21-46); MONOCYTES ABSOLUTE AUTO 0.89 K/mm3 (0.16-1.47); MONOCYTES PERCENT AUTO 10 % (4-13); Mean Corpuscular HGB 31.5 pg (26.0-34.0); Mean Corpuscular HGB Conc 33.7 g/dL (31.5-36.5); Mean Corpuscular Volume 94 fL (80-100); Mean Platelet Volume 9.5 fL (9.1-12.4); NEUTROPHILS ABSOLUTE AUTO 7.01 K/mm3 (1.96-9.15); NEUTROPHILS PERCENT AUTO 76 % (41-73); Platelet Count 129 K/mm3 (150-400); RDW Coefficient Variation 15.2 % (11.7-14.2); RDW Standard Deviation 52.2 fL (35.1-46.3); Red Blood Cell Count 5.11 M/mm3 (4.30-5.90); White Blood Cell Count 9.22 K/mm3 (4.00-11.30)
[2024-05-27 05:09] LABS: Albumin/Globulin Ratio 1.1 (0.8-1.8); Bilirubin, Total 2.3 mg/dL (0.1-1.0); Bun/Creatinine Ratio 43.5 (12.0-20.0); Calcium, Blood 9.5 mg/dL (8.5-10.1); Globulin, Blood 3.6 g/dL (2.2-4.0); Potassium, Blood 3.3 mmol/L (3.5-5.5); Total Protein, Blood 7.6 g/dL (6.4-8.2)
--- NOTE | 2024-05-27 05:53 | NUR ---
SHIFT SUMMARY NO ACUTE CHANGES DURING NOC. SLEPT INTERMITTENTLY. ROUSES EASILY TO STIMULI. BP STABLE. HR 80s-90s. AFEBRILE. RA SATS STABLE. DENIES SOB/DYSPEA. INFREQUENT NON-PRODUCTIVE COUGH, TOLERATING PO INTAKE- CONTINUES WITH 1500ML/DAY FLUID RESTRICTION. DENIES C/O PAIN OR NAUSEA. SMITH PATENT AND DRAINING TO GRAVITY. WILL REPORT TO ONCOMING RN WHEN AVAILABLE.
[2024-05-27] MEDS ORDERED: Potassium Chloride 10 Meq Tablet SA PO ONE (06:10)
--- NOTE | 2024-05-27 07:46 | NUR ---
AM NOTE... ASSUMED CARE OF PT AT 0700, PT IS A&Ox3. PT IS IN AFIB W/BBB W/FREQUENT PVCs IN THE 70'S-90'S BP IS STABLE WITH MAPS>65. PT HAS TRACE EDEMA TO HIS BLE/ANKLES. PT IS ON RA WITH O2 SATS>90% L/S DIM AND CLEAR T/O SLIGHT FINE CRACKLES NOTED IN THE LLL. BT PRESENT AND HYPOACTIVE, ABD IS SLIGHTLY FIRM AND TENDER TO PALPATION. PT IS ANXIOUS TO D/C HOME. HE CONTINUES TO BE ON A FLUID RESTRICTION OF 1500MLS. WILL CONTINUE TO MONITOR.
[2024-05-27] MEDS ORDERED: Potassium Phosphate Dibasic 10 MM in Dextrose 5% 250 ML IV STA (11:32)
[2024-05-27] MEDS ORDERED: Spironolactone 25 MG Tab PO SCH (12:00)
[2024-05-27] MEDS ORDERED: Sodium Phosphate 20 MM in Dextrose 5% 500 ML IV ONE (13:30)
--- NOTE | 2024-05-27 17:21 | NUR ---
SHIFT SUMMARY... NO ACUTE NEGATIVE CHANGES NOTED THIS SHIFT. SOCIAL PROFESSIONALS AT THE BEDSIDE TO SPEAK WITH THE PT AND THE FAMILY, PLANS TO TURN THE AICD BACK ON TOMORROW. PT'S VS HAVE BEEN STABLE T/O THIS SHIFT. PT WORKED WITH PT/OT AND WALKED OUT IN THE MATIAS WITH FWW AND GAIT BELT. PT HAD A LARG HARD BM THIS AFTERNOON. PT'S SMITH IS PATENT AND DRAINING TO GRAVITY. PT HAS DENIED ANY CHEST PAIN OR SOB THIS SHIFT. CALL LIGHT IN REACH WILL CONTINUE TO MONITOR UNTIL REPORT IS GIVEN TO ONCOMING RN.
[2024-05-28] VITALS (8 sets, daily range): BP systolic 103–124; BP diastolic 62–101
[2024-05-28 03:35] LABS: BASOPHILS ABSOLUTE AUTO 0.01 K/mm3 (0.00-0.23); BASOPHILS PERCENT AUTO 0 % (0-2); EOSINOPHILS ABSOLUTE AUTO 0.24 K/mm3 (0.00-0.68); EOSINOPHILS PERCENT AUTO 2 % (0-6); Hematocrit 45.8 % (37.0-53.0); Hemoglobin 15.4 g/dL (13.5-17.5); IMMATURE GRAN ABSOLUTE AUTO 0.05 K/mm3 (0.00-0.10); IMMATURE GRAN PERCENT AUTO 1 % (0-1); LYMPHOCYTES ABSOLUTE AUTO 1.39 K/mm3 (0.84-5.20); LYMPHOCYTES PERCENT AUTO 14 % (21-46); MONOCYTES ABSOLUTE AUTO 1.08 K/mm3 (0.16-1.47); MONOCYTES PERCENT AUTO 11 % (4-13); Mean Corpuscular HGB 31.1 pg (26.0-34.0); Mean Corpuscular HGB Conc 33.6 g/dL (31.5-36.5); Mean Corpuscular Volume 93 fL (80-100); Mean Platelet Volume 9.6 fL (9.1-12.4); NEUTROPHILS ABSOLUTE AUTO 7.41 K/mm3 (1.96-9.15); NEUTROPHILS PERCENT AUTO 73 % (41-73); Platelet Count 141 K/mm3 (150-400); RDW Coefficient Variation 14.8 % (11.7-14.2); RDW Standard Deviation 51.2 fL (35.1-46.3); Red Blood Cell Count 4.95 M/mm3 (4.30-5.90); White Blood Cell Count 10.18 K/mm3 (4.00-11.30)
[2024-05-28 03:59] LABS: Calcium, Blood 9.1 mg/dL (8.5-10.1); Creatinine, Blood 1.47 mg/dL (0.60-1.20); Magnesium, Blood 2.5 mg/dL (1.6-2.4); Potassium, Blood 3.2 mmol/L (3.5-5.5)
--- NOTE | 2024-05-28 05:39 | NUR ---
SHIFT SUMMERY PT HAS HAD NO ACUTE CHANGES OVERNIGHT. AICD TO BE TURNED BACK ON TODAY. VS HAVE BEEN STABLE W/NO ACUTE DISTRESS OVERNIGHT.
[2024-05-28] MEDS ORDERED: Potassium Chloride 20 MEQ TabCR PO ONE (08:05)
[2024-05-28] MEDS ORDERED: Enoxaparin 40 MG/0.4 ML SYR SC SCH (09:00)
[2024-05-28] MEDS ORDERED: Torsemide 20 MG TAB PO SCH (09:00)
--- NOTE | 2024-05-28 10:23 | NUR ---
GILBERT HAS BEEN UP IN THE RECLINER FOR BREAKFAST, TOOK IN ALL HIS MEAL. WAS ABLE TO WORK WITH THERAPY AND DO HIS MORNING ADL'S. HE RETURNED TO BED TO NAP AFTER THERAPY. HE IS NOW ENGAGING WITH AND DAUGHTER. TAKING IN ICE CHIPS.
[2024-05-28] MEDS ORDERED: Potassium Chloride 10 Meq Tablet SA PO SCH (12:30)
--- NOTE | 2024-05-28 12:57 | NUR ---
GILBERT UP IN THE CHAIR FOR LUNCH, FAMILY IN TO VISIT. EATING WELL, ATE ENTIRE SANDWICH AND SOME OF THE MEAT LOAF, ATE HIS FRUIT. HE REMAINS VERY SLEEPY TODAY BUT APPROPRIATE. HE TRANSFERS WITH ONE PERSON ASSIST. HE AWAKENS TO VOICE AND FAMILY STIMULUS. NO FURTHER CHANGES AT THIS TIME.
--- NOTE | 2024-05-28 18:34 | NUR ---
GILBERT HAD A REALLY GOOD DAY. HE WAS ABLE TO WORK WITH THERAPY, WAS IN THE CHAIR FOR EACH MEAL, HAD THE SMITH CATHETER REMOVED AND HAS VOIDED STANDING UP AT BEDSIDE SEVERAL TIMES SINCE REMOVAL. HE HAS AMBULATED WITH THE WALKER FAR HIS CORDS WOULD ALLOW. PT HAS GOOD APPETITE, REMAINS ON FLUID RESTRICTION, NO IV FLUIDS GIVEN. ROUNDED AND SAID HE THINKS HE SHOULD BE GOING HOME THIS WEEKEND. THIS MAKES PATIENT HAPPY. VITALS REMAIN STABLE, NO PROBLEMS NOTED.
--- NOTE | 2024-05-28 22:05 | NUR ---
TRANSFER TO PCU PT ARRIVED TO PCU 3 FROM ICU 6 AT APPROXIMATELY 2220. PT IS A&O, ABLE TO MAKE NEEDS KNOWN, TRANSFERS SBA. MEDICATED WITH MELATONIN PER EMAR UPON ARRIVAL TO UNIT PER PATIENT REQUEST. VSS, AFEBRILE, SPO2 >90% RA. TELE SHOWS AFIB 80'S-90'S. PT DENIES SOB OR CP. PT IS RESTING QUIETLY IN BED, CALL LIGHT WITHIN REACH, BREATHING EVEN AND UNLABORED.
--- NOTE | 2024-05-28 22:50 | NUR ---
PT TRANSFERS TO ROOM PCU 3. LEAVES UNIT AT 2219 VIA W/C. PT ABLE TO STAND AND PIVOT TRANSFER TO W/C AND TO BED IN PCU 3. PT IN STABLE CONDITION. VOICES UNDERSTANDING AND ACCEPTANCE OF TRANSFER.
[2024-05-29] VITALS (7 sets, daily range): BP systolic 91–114; BP diastolic 61–73
[2024-05-29 04:16] LABS: BASOPHILS ABSOLUTE AUTO 0.05 K/mm3 (0.00-0.23); BASOPHILS PERCENT AUTO 0 % (0-2); EOSINOPHILS ABSOLUTE AUTO 0.37 K/mm3 (0.00-0.68); EOSINOPHILS PERCENT AUTO 3 % (0-6); Hematocrit 50.8 % (37.0-53.0); Hemoglobin 16.3 g/dL (13.5-17.5); IMMATURE GRAN ABSOLUTE AUTO 0.11 K/mm3 (0.00-0.10); IMMATURE GRAN PERCENT AUTO 1 % (0-1); LYMPHOCYTES PERCENT AUTO 15 % (21-46); MONOCYTES ABSOLUTE AUTO 1.33 K/mm3 (0.16-1.47); MONOCYTES PERCENT AUTO 11 % (4-13); Mean Corpuscular HGB 31.1 pg (26.0-34.0); Mean Corpuscular HGB Conc 32.1 g/dL (31.5-36.5); Mean Corpuscular Volume 97 fL (80-100); Mean Platelet Volume 10.2 fL (9.1-12.4); NEUTROPHILS ABSOLUTE AUTO 8.22 K/mm3 (1.96-9.15); NEUTROPHILS PERCENT AUTO 69 % (41-73); Platelet Count 138 K/mm3 (150-400); RDW Coefficient Variation 14.9 % (11.7-14.2); RDW Standard Deviation 53.5 fL (35.1-46.3); Red Blood Cell Count 5.24 M/mm3 (4.30-5.90); White Blood Cell Count 11.88 K/mm3 (4.00-11.30)
[2024-05-29 04:47] LABS: Albumin, Blood 3.6 g/dL (3.4-5.0); Bilirubin, Total 2.1 mg/dL (0.1-1.0); Bun/Creatinine Ratio 51.7 (12.0-20.0); Calcium, Blood 8.8 mg/dL (8.5-10.1); Creatinine, Blood 1.43 mg/dL (0.60-1.20); Globulin, Blood 3.6 g/dL (2.2-4.0); Potassium, Blood 3.8 mmol/L (3.5-5.5); Total Protein, Blood 7.2 g/dL (6.4-8.2)
--- NOTE | 2024-05-29 05:05 | NUR ---
SHIFT SUMMARY PT A&OX4, ABLE TO MAKE NEEDS KNOWN. VSS, AFEBRILE, SPO2 >92% RA. PT DENIES SOB OR CP. TELE SHOWS AFIB 80'S-90'S. BP STABLE. PT UP TO USE RESTROOM SEVERAL TIMES SBA WITH FWW. NO ACUTE EVENTS THIS SHIFT. PT IS RESTING QUIETLY IN BED, CALL LIGHT WITHIN REACH, BREATHING EVEN AND UNLABORED.
--- NOTE | 2024-05-29 17:30 | NUR ---
SHIFT SUMMARY PT A/OX3-4, FORGETFUL AT TIMES. PT HAD BRIEF CONFUSION EPISODES MAINLY AFTER WAKING UP FROM SLEEP. PT ABLE TO EXPRESS NEEDS AND CALLED APPROPIATE. PT VSS THROUGHOUT SHIFT WITH O2 SATS IN THE 90'S ON RA. NO REPORT OF CHEST PAIN/PRESSURE THROUGHOUT. NO REPORT OF SOB/DYSPNEA THROUGHOUT SHIFT. PT SEEN BY RADIO MECHANIC TODAY, SEE MD NOTES. PT ABLE TO AMBULATE TO BATHROOM WITH 1 PERSON ASIST AND FWW, TOLERATED WELL. FLUID RESTRICTION REAMINED IN PLACE. PT ENCOURAGED TO BE UP TO CHAIR THIS SHIFT, PT COOPERATIVE.
[2024-05-29 19:38] LABS: Magnesium, Blood 2.4 mg/dL (1.6-2.4); Potassium, Blood 4.1 mmol/L (3.5-5.5)
--- NOTE | 2024-05-29 20:05 | NUR ---
ASSUMPTION OF CARE ASSUMED CARE OF PT AT 1900. UPON INITIAL ASSESSMENT PT IS RESTING QUIETLY WITH EYES CLOSED, EVEN CHEST RISE AND FALL. VITALLY STABLE. BP 105/64, HR 91 IN AFIB WITH OCCASSIONAL PVCS. NO S/S ACUTE DISTESS. STAT K AND MG NORMAL LEVEL.
[2024-05-30 03:44] LABS: BASOPHILS ABSOLUTE AUTO 0.03 K/mm3 (0.00-0.23); BASOPHILS PERCENT AUTO 0 % (0-2); EOSINOPHILS PERCENT AUTO 4 % (0-6); Hematocrit 48.5 % (37.0-53.0); Hemoglobin 15.8 g/dL (13.5-17.5); IMMATURE GRAN ABSOLUTE AUTO 0.12 K/mm3 (0.00-0.10); IMMATURE GRAN PERCENT AUTO 1 % (0-1); LYMPHOCYTES ABSOLUTE AUTO 1.43 K/mm3 (0.84-5.20); LYMPHOCYTES PERCENT AUTO 14 % (21-46); MONOCYTES PERCENT AUTO 12 % (4-13); Mean Corpuscular HGB 30.8 pg (26.0-34.0); Mean Corpuscular HGB Conc 32.6 g/dL (31.5-36.5); Mean Corpuscular Volume 95 fL (80-100); Mean Platelet Volume 9.8 fL (9.1-12.4); NEUTROPHILS ABSOLUTE AUTO 7.09 K/mm3 (1.96-9.15); NEUTROPHILS PERCENT AUTO 69 % (41-73); Platelet Count 154 K/mm3 (150-400); RDW Coefficient Variation 14.6 % (11.7-14.2); RDW Standard Deviation 51.3 fL (35.1-46.3); Red Blood Cell Count 5.13 M/mm3 (4.30-5.90); White Blood Cell Count 10.27 K/mm3 (4.00-11.30)
[2024-05-30 04:05] LABS: Bun/Creatinine Ratio 54.9 (12.0-20.0); Calcium, Blood 9.1 mg/dL (8.5-10.1); Creatinine, Blood 1.42 mg/dL (0.60-1.20); Potassium, Blood 3.9 mmol/L (3.5-5.5)
[2024-05-30 04:24] VITALS: BP 114/67
[2024-05-30 07:16] VITALS: BP 102/60
[2024-05-30] MEDS ORDERED: BENZ100A PO (11:12)
[2024-05-30] MEDS ORDERED: ACET325 PO (11:12)
[2024-05-30] MEDS ORDERED: METO50ER PO (11:13)
[2024-05-30] MEDS ORDERED: POTCHL20ER PO (11:14)
[2024-05-30 12:04] VITALS: BP 110/64
--- NOTE | 2024-05-30 12:05 | NUR ---
UPDATE DISCHARGE INSTRUCTIONS PROVIDED TO PT AND FAMILY MEMBERS AT BEDSIDE. PT EDUCATED ON MEDICATIONS. ALL QUESTIONS ANSWERED. PT EATING LUNCH AND THEN WILL BE TAKEN OUT VIA WC
== END 2024-05-30 12:29 | disposition home health service (06) | DRG 291 ==
LOC: ER 11:13 → PCU 17:45 → MEDS 17:45 → ICUE 17:45 → PCU 18:29 → MEDS 05-23 15:52 → PCU 05-24 23:56 → ICUE 05-25 01:50 → PCU 05-28 22:19
PROVIDERS: Family Medicine; Internal Medicine; Internal Medicine Cardiovascular Disease; Student in an Organized Health Care Education/Training Program; Surgery; ADMIT Student in an Organized Health Care Education/Training Program
PROC: 4A033R1 Measurement of Arterial Saturation, Peripheral, Percutaneous Approach (ICD-10-PCS; principal; 2024-05-21)
PROC: 5A09357 Assistance with Respiratory Ventilation, Less than 24 Consecutive Hours, Continuous Positive Airway Pressure (ICD-10-PCS; 2024-05-21)
DX: I50.23 Acute on chronic systolic (congestive) heart failure (principal); G92.8 Other toxic encephalopathy; I48.19 Other persistent atrial fibrillation; N17.9 Acute kidney failure, unspecified; J44.1 Chronic obstructive pulmonary disease with (acute) exacerbation; E87.20 Acidosis, unspecified; E87.1 Hypo-osmolality and hyponatremia; I47.20 Ventricular tachycardia, unspecified; Z66 Do not resuscitate; I25.10 Atherosclerotic heart disease of native coronary artery without angina pectoris; R93.2 Abnormal findings on diagnostic imaging of liver and biliary tract; I08.1 Rheumatic disorders of both mitral and tricuspid valves; D69.6 Thrombocytopenia, unspecified; K81.9 Cholecystitis, unspecified; E87.5 Hyperkalemia; I25.5 Ischemic cardiomyopathy; E87.6 Hypokalemia; R94.5 Abnormal results of liver function studies; R74.01 Elevation of levels of liver transaminase levels; N18.31 Chronic kidney disease, stage 3a; E11.22 Type 2 diabetes mellitus with diabetic chronic kidney disease; Z79.899 Other long term (current) drug therapy; Z79.82 Long term (current) use of aspirin; Z79.84 Long term (current) use of oral hypoglycemic drugs; I25.2 Old myocardial infarction; Z98.890 Other specified postprocedural states; Z95.1 Presence of aortocoronary bypass graft; Z87.891 Personal history of nicotine dependence; Z95.810 Presence of automatic (implantable) cardiac defibrillator
CPT/HCPCS: 0202U; 0241U; 36415; 36600; 51702; 71046; 71260; 74176; 76705; 76770; 80048; 80053; 80069; 80076; 81001; 82140; 82803; 82947; 83605; 83735; 83880; 84100; 84132; 84145; 84484; 85025; 85379; 86334; 93005; 93010; 93308; 93321; 94640; 94660; 94664; 94760; 94762; 96374-59; 96375-59; 97110; 97116; 97162; 97165; 97530; 97535; 99285-25; A9270; C1751; J0282; J0696; J1160; J1650; J1940; J2270; J2919; J3010; J7030; J7050; J7060; Q9967

== ENCOUNTER 2024-07-17 21:38 | Inpatient (IN) | payer MEDICARE ==
[~2024-07-17] VITALS: Ht 152.4 cm; Wt 72.5 kg
[~2024-07-17 21:38] MED LIST changes: +ACET325 PO; +BENZ100A PO; +METO25ER PO; +POTCHL20ER PO
[2024-07-17 21:51] LABS: Calcium, Ionized (POC) 1.07 mmol/L (1.10-1.46); Chloride (POC) 98 mmol/L (98-108); Creatinine (POC) 2.3 mg/dL (0.8-1.3); Glucose (ISTAT POC) 161 mg/dL (70-99); Hemoglobin (POC) 13.9 g/dL (13.5-17.5); Potassium (POC) 4.1 mmol/L (3.5-5.5); Sodium (POC) 135 mmol/L (135-148); Total CO2 (POC) 23 mmol/L (21-32)
[2024-07-17] MEDS ORDERED: Lactated Ringer's 1,000 ML IV ONE ×2 (21:51→21:55)
[2024-07-17 22:24] LABS: BASOPHILS ABSOLUTE AUTO 0.05 K/mm3 (0.00-0.23); BASOPHILS PERCENT AUTO 1 % (0-2); EOSINOPHILS ABSOLUTE AUTO 0.09 K/mm3 (0.00-0.68); EOSINOPHILS PERCENT AUTO 1 % (0-6); Hemoglobin 10.7 g/dL (13.5-17.5); IMMATURE GRAN ABSOLUTE AUTO 0.02 K/mm3 (0.00-0.10); IMMATURE GRAN PERCENT AUTO 0 % (0-1); LYMPHOCYTES PERCENT AUTO 17 % (21-46); MONOCYTES ABSOLUTE AUTO 0.63 K/mm3 (0.16-1.47); MONOCYTES PERCENT AUTO 10 % (4-13); Mean Corpuscular HGB Conc 31.5 g/dL (31.5-36.5); Mean Corpuscular Volume 86 fL (80-100); Mean Platelet Volume 10.1 fL (9.1-12.4); NEUTROPHILS ABSOLUTE AUTO 4.74 K/mm3 (1.96-9.15); NEUTROPHILS PERCENT AUTO 71 % (41-73); Platelet Count 150 K/mm3 (150-400); RDW Coefficient Variation 16.3 % (11.7-14.2); RDW Standard Deviation 51.6 fL (35.1-46.3); Red Blood Cell Count 3.96 M/mm3 (4.30-5.90); White Blood Cell Count 6.63 K/mm3 (4.00-11.30)
[2024-07-17 22:26] LABS: Albumin, Blood 3.6 g/dL (3.4-5.0); Albumin/Globulin Ratio 1.2 (0.8-1.8); Bilirubin, Total 1.5 mg/dL (0.1-1.0); Bun/Creatinine Ratio 26.9 (12.0-20.0); Calcium, Blood 8.9 mg/dL (8.5-10.1); Creatinine, Blood 2.01 mg/dL (0.60-1.20); Free Thyroxine 1.34 ng/dL (0.70-1.60); Globulin, Blood 3.1 g/dL (2.2-4.0); Magnesium, Blood 2.3 mg/dL (1.6-2.4); Potassium, Blood 4.2 mmol/L (3.5-5.5); Total Protein, Blood 6.7 g/dL (6.4-8.2)
[2024-07-17 22:39] LABS: International Normalized Ratio 1.45; Prothrombin Time Results 15.1 Sec (9.7-11.5)
[2024-07-17 23:15] LABS: Influenza A, PCR NEGATIVE (NEGATIVE); Influenza B, PCR NEGATIVE (NEGATIVE); Resp Syncytial Virus, PCR NEGATIVE (NEGATIVE); SARS-Cov-2 (COVID-19) PCR, MMC NEGATIVE (NEGATIVE)
[2024-07-18] VITALS (11 sets, daily range): BP systolic 90–120; BP diastolic 69–89
[2024-07-18 00:04] LABS: Source, Urine Clean Catch
[2024-07-18 00:12] LABS: Bilirubin, Urine Neg (Neg); Blood, Urine Neg (Neg); Glucose Qualitative, Urine 4+ (Neg); Ketones, Urine Neg (Neg); Leukocyte Esterase, Urine Neg (Neg); Nitrite, Urine Neg (Neg); Protein, Urine 2+ (Neg); Specific Gravity, Urine 1.015 (1.003-1.022); Urobilinogen, Urine NORM (Normal)
[2024-07-18 00:29] LABS: Appearance, Urine Clear (Clear); Color, Urine Yellow (P-Yellow)
[2024-07-18 00:31] LABS: Bacteria Few /hpf; Red Blood Cells, Urine 0-2 /hpf (0-2); Squamous Epithelial Cells Few /hpf (Few); White Blood Cells, Urine 0-2 /hpf (0-5)
[2024-07-18] MEDS ORDERED: FLU VACC TS2024-25(6MOS UP)/PF 45 MCG/0.5 ML SYRINGE IM SCH (01:05)
[2024-07-18] MEDS ORDERED: Azithromycin 500 MG in NS 250 ML IV SCH (01:21)
[2024-07-18] MEDS ORDERED: CefTRIAXone Sodium 1,000 MG in NS 100 ML IV SCH (01:22)
[2024-07-18] MEDS ORDERED: MethylPREDNISolone Sod Succ 125 MG Vial IV SCH (02:00)
[2024-07-18] MEDS ORDERED: Acetaminophen650 M1 PO (03:33)
[2024-07-18] MEDS ORDERED: BANATROL PLUS1 EAC1 PO (03:34)
[2024-07-18] MEDS ORDERED: BENZ100A PO (03:35)
[2024-07-18] MEDS ORDERED: SPIRONOLACTONE25 MG PO (03:37)
[2024-07-18] MEDS ORDERED: Isosorbide Mono60 MG PO (03:38)
[2024-07-18] MEDS ORDERED: LOSA50 PO (03:38)
[2024-07-18] MEDS ORDERED: ATOR40TA PO (03:39)
[2024-07-18] MEDS ORDERED: NS 250 ML IV PRN (03:50)
[2024-07-18] MEDS ORDERED: Clopidogrel Bisulfate 300 MG Cap PO ONE (05:15)
[2024-07-18] MEDS ORDERED: Aspirin 325 MG Tab PO ONE (06:00)
[2024-07-18] MEDS ORDERED: Heparin Sodium,Porcine/0.5 NS 500 ML IV SCH (06:45)
[2024-07-18] MEDS ORDERED: Heparin Sodium 5000 Units/ML 1ML MDV IV ONE (06:45)
--- NOTE | 2024-07-18 07:22 | NUR ---
ASSUMPTION OF CARE PT ARRIVED TO ROOM FROM MED FLOOR @1327. VSS. PT AXO. HEPARIN GTT STARTED PER EMAR. DR PORTILLO TO ROOM TO ASSESS PT. EDUCATED PT REGARDING MEDICATION MITIGATION. PT ORIENTED TO ROOM, UNIT PROTOCOL/PROCEDURE, MEDS, ETC. FAMILY AT BEDSIDE. CALL LIGHT IN REACH. BED IN LOW POSITION. BED ALARM ON. AFIB HR 110'S. PT DENIES CURRENT CP. REPORT GIVEN TO ONCOMING CARLOS WORRELL @6510.
[2024-07-18] MEDS ORDERED: Insulin Human Lispro 100 Units/ML 3ML Syringe SC SCH (07:30)
[2024-07-18] MEDS ORDERED: Atorvastatin 40 MG Tab PO SCH (08:00)
[2024-07-18] MEDS ORDERED: Clopidogrel Bisulfate 75 MG Tab PO SCH (08:00)
[2024-07-18] MEDS ORDERED: Amiodarone HCl 200 MG Tab PO SCH (08:00)
[2024-07-18] MEDS ORDERED: Metoprolol Succinate 50 MG TABCR PO SCH (09:00)
[2024-07-18] MEDS ORDERED: Atorvastatin 10 MG Tab PO SCH (09:00)
[2024-07-18] MEDS ORDERED: Cholecalciferol 1000 Unit Tablet (=25MCG) PO SCH (09:00)
[2024-07-18] MEDS ORDERED: Empagliflozin 10 MG TAB PO SCH (09:00)
[2024-07-18] MEDS ORDERED: Docusate Sodium 100 MG Cap PO SCH (09:00)
--- NOTE | 2024-07-18 11:26 | NUR ---
RHYTHM/TELE PER TELE SUPERVISOR BODY ASSEMBLY PT HAD 6B RUN V.TACH & THEN CONVERTED BACK TO AFIB HR 90'S. IT WAS APPROX 1055 WHEN THIS NURSE WAS NOTIFIED. VSS. PT DENIES CP/PRESSURE, DOES REPORT INCREASED DYSPNEA-HOWEVER PT WAS LYING W/HOB DOWN. BOOSTED IN BED & ELEVATED HOB, PT REPORTS BREATHING IS BETTER. INFORMED CHARGE NURSE SHANIKA YUAN. WILL CONT TO MONITOR FOR RHYTHM CHANGES
[2024-07-18 12:05] LABS: Magnesium, Blood 2.3 mg/dL (1.6-2.4); Potassium, Blood 4.3 mmol/L (3.5-5.5)
[2024-07-18] MEDS ORDERED: Dose Adjust by Pharmacy XX STA ×2 (13:43→19:28)
--- NOTE | 2024-07-18 15:36 | NUR ---
RHYTHM CHANGES *LATE ENTRY* APPROX 1255 TELE MONITOR INFORMED THIS NURSE PT HAD 7 B RUN POLYMORPHIC V. TACH & THEN WAS AFIB HR 90'S. VSS. PT DENIES CP OR PRESSURE. INFORMED SOCK EXAMINERCARLOS YUAN. WILL CONT TO MONITOR.
--- NOTE | 2024-07-18 16:20 | NUR ---
SHIFT SUMMARY AOX4. NIKOLSKI. VSS. TELE AFIB HR 90'S, BESIDES A FEW RUNS V. TACH-READ PREVIOUS NOTE. DENIES CP/PRESSURE. REPORTS DYSPNEA W/MINIMAL ACTIVITY. SPO2 >92% ON RA. BREATHING GET TACHYPNIC & LABOURED W/ACTIVITY. HEP DRIP RUNNING 15U/KG. PT HAD LRG FORMED BM, 2 ASSIST TO BSC. DENIES DIZZINESS OR LIGHTHEADED UPON STANDING. VOIDING, USING URINAL W/HELP. ABLE TO USE CALL LIGHT & MAKE NEEDS KNOWN.
--- NOTE | 2024-07-18 16:34 | NUR ---
REPORT FROM ANAID, THIS RN TO ASSUME CARE OF PT. PT RESTING IN BED WATCHING TV. HEPARIN VERIFIED WITH 2 RNS AND CONTINUES TO RUN. REMAINS ON TELE. VSS. DENIES ANY NEEDS. DENIES ANY CP OR SOB. BED IN LOW POSITION. CALL LIGHT IN REACH.
--- NOTE | 2024-07-18 18:30 | NUR ---
SHIFT SUMMARY: PT A&OX4. CALLS APPROPRIATELY AND MAKES NEEDS KNOWN TO STAFF. PT GOT UP TO THE CHAIR WITH 1P ASSIST WITH THE WALKER FOR DINNER AND THEN USED THE BEDSIDE COMMODE AFTER DINNER WITH. PT BECOMES SOB, TACHYPNEIC AND TACHYCARDIC IN THE 130'S WITH EXERTION BUT MAINTAINED O2 SATS ABOVE 95%. DENIES ANY CP WITH WITH EXERTION. DENIES ANY CP OR SOB AT THIS TIME. PT APPEARS TO BE RESTING IN BED WITH EQUAL NONLABORED RESPIRATIONS. DENIES ANY FURTHER NEEDS AT THIS TIME. NO SIGNIFICANT EVENTS HAPPENED SINCE ASSUMPTION OF CARE. FAMILY AT BEDSIDE. CALL LIGHT IN REACH. WILL CONTINUE TO CARE FOR PT WILL END OF SHIFT REPORT.
[2024-07-18] MEDS ORDERED: Metoprolol Succinate 25 MG TABCR PO SCH (21:00)
--- NOTE | 2024-07-18 22:34 | NUR ---
PT CALLED THIS RN TO THE ROOM STATING THAT HE WAS FEELING UNWELL. PT C/O NAUSEA, BLOATING, FEELING HOT, AND PRESSURE ON HIS ABDOMEN AND CHEST WHICH HE RATES 8-9/10. VITALS STABLE. CALLED PROVIDER WHO STATED WILL REVIEW CHART AND PLACE ORDERS. RETURNED TO PT'S ROOM, PT CONTINUES COMPLAINING OF SAME SYMPTOMS. MONITOIRING VITAL SIGNS.
[2024-07-18] MEDS ORDERED: Nitroglycerin 0.4 MG SUBL SL PRN (22:40)
[2024-07-18] MEDS ORDERED: Acetaminophen 325 MG TABLET PO PRN (22:40)
[2024-07-18] MEDS ORDERED: OxyCODONE HCL 5 MG TAB PO PRN (23:00)
[2024-07-18] MEDS ORDERED: OxyCODONE HCL 5 MG TAB PO ONE (23:00)
[2024-07-18] MEDS ORDERED: Ondansetron HCl 2 MG / ML 2ML Vial IV PRN (23:10)
[2024-07-18] MEDS ORDERED: Simethicone 80 MG Chew PO PRN (23:15)
--- NOTE | 2024-07-18 23:15 | NUR ---
CALLED RESIDENT BACK AND REPORTED PT HAS NOT RECEIVED DIURETIC PER CHART REVIEW AND IS FLUID OVERLOADED APPROX 545 ML PER CHART. MEDICATING PER NOV, CALLED PT'S DAUGHTER AND UPDATED. PT REPORTS SYMPTOMS BEGINNING TO IMPROVE, TACHYPNEA IMPROVING. REQUESTED CHEF & OWNER TO PLACE ANOTHER IV, PT AGREEABLE. CHEST X-RAY COMPLETED. CALLED IMAGING TO REQUEST ABDOMINAL CT BE COMPLETED STAT.
[2024-07-19] VITALS (11 sets, daily range): BP systolic 104–129; BP diastolic 72–106
--- NOTE | 2024-07-19 00:15 | NUR ---
PT NOTED TO BE DESATURATING INTO THE 80'S ORA, PT WITH WITNESSED APNEIC PERIOD. 2L VIA NC APPLIED, PT MAINTAINING SATS >90%.
[2024-07-19 04:53] LABS: Bun/Creatinine Ratio 29.8 (12.0-20.0); Calcium, Blood 9.3 mg/dL (8.5-10.1); Creatinine, Blood 1.98 mg/dL (0.60-1.20); Magnesium, Blood 2.4 mg/dL (1.6-2.4)
[2024-07-19] MEDS ORDERED: Furosemide 10 MG/ML 4ML Vial IV ONE (05:00)
[2024-07-19] MEDS ORDERED: Clarify Drug Order XX ONE (05:10)
[2024-07-19] MEDS ORDERED: Pantoprazole Sodium 40 MG Tab PO SCH ×2 (06:00)
[2024-07-19] MEDS ORDERED: Bumetanide 0.25 MG/ML 4ML ViaL IV STA (06:26)
--- NOTE | 2024-07-19 06:27 | NUR ---
SHIFT SUMMARY: GILBERT IS A&OX4. PT HAS HAD FOUR RUNS OF RVR THIS SHIFT, REPORTED TO RESIDENT. PLEASE SEE RESULTS OF CHEST X-RAY, CHEST, ABDOMEN, AND HEAD CTs. HE IS TOLERATING WATER WITHOUT DIFFICULTY AND SWALLOWS HIS PILLS WHOLE WITH WATER. HE IS A ONE TO TWO PERSON ASSIST TO THE BSC WITH THE FWW AND GAIT BELT. PT DESATURATED WHILE SLEEPING AND HAS BEEN WEARING 2L VIA NC WHICH IS MAINTAINING HIS SATS >90%. PT REPORTS FEELING SIGNIFICANTLY BETTER THAN EARLIER IN THE SHIFT AND HAS BEEN ABLE TO TOLERATE HAVING THE HEAD OF HIS BED RECLINED. CONDOM CATH IN PLACE FOR FREQUENT URINATION, ESPECIALLY IN LIGHT OF DIURETIC. PT NOTED TO BE FLUID OVERLOADED, REPORTED TO RESIDENT. IVs TO BILATERAL FOREARMS PATENT. HE IS LYING IN BED WITH THE CALL LIGHT IN REACH, BED IN LOWEST POSITION. WILL GIVE REPORT TO ONCOMING RN.
[2024-07-19] MEDS ORDERED: Digoxin 0.25 MG/ML 2ML Amp IV ONE (07:15)
[2024-07-19] MEDS ORDERED: Spironolactone 25 MG Tab PO SCH (09:00)
[2024-07-19] MEDS ORDERED: Bumetanide 0.25 MG/ML 4ML ViaL IV SCH (09:00)
[2024-07-19] MEDS ORDERED: Torsemide 20 MG TAB PO SCH (09:00)
[2024-07-19] MEDS ORDERED: Midodrine 5 MG Tab PO SCH (09:00)
[2024-07-19] MEDS ORDERED: Metoprolol Tartrate 1 MG/ML 5 ML VIAL IV ONE (09:45)
--- NOTE | 2024-07-19 10:00 | NUR ---
PHYSICIAN CONTACT: PT'S HR SUSTAINING 130-150'S THIS AM. AFIB ON TELE PER CLINICAL MICROBIOLOGIST. SBP 110'S. THIS RN IN PT'S ROOM, PT RESTLESS & DYSPNEIC. RR 30-40'S. CALL TO MD COLES. ORDERS RECEIVED FOR IV LOPRESSOR X1, SEE EMAR. HR DECREASED TO 100-110'S FOLLOWING PUSH. MD TO COME TO BEDSIDE TO DISCUSS GOALS OF CARE WITH FAMILY.
[2024-07-19] MEDS ORDERED: Morphine Sulfate 4 MG/1 ML Injection IV PRN (10:20)
[2024-07-19] MEDS ORDERED: Bumetanide 0.25 MG/ML 10ML Vial IV ONE (14:00)
--- NOTE | 2024-07-19 15:40 | NUR ---
UPDATE: PT'S MENTATION HAS IMPROVED THIS AFTERNOON. MORE ALERT, ABLE TO MAINTAIN CONVERSATION. BEDSIDE SWALLOW COMPLETED W/ APPLESAUCE BY THIS RN, NO SIGNS/SYMPTOMS OF ASPIRATION OBSERVED ON MULTIPLE TRIALS. ABLE TO TAKE MEDS 1 AT A TIME, WHOLE IN APPLESAUCE. CALL TO MD COLES W/ UPDATE. W/ ORDERS FOR PUREED DIET & MEDS IN APPLESAUCE; CONTINUING THICKENED LIQUIDS W/O STRAW PENDING SPEECH EVAL. UPDATED MD ON OLIGURIA. PT HAS ONLY PRODUCED 50ML URINE THIS SHIFT. CONDOM CATH IN PLACE, BLADDER SCAN <150ML. ORDERS TO HOLD IV BUMEX UNTIL AM, RECHECK LABS IN AM. FAMILY UPDATED ON PLAN OF CARE.
--- NOTE | 2024-07-19 17:49 | NUR ---
END OF SHIFT NOTE: PT LETHARGIC AT START OF SHIFT, RESTLESS, DYSPNEIC W/ RR 30-40'S. ORIENTED X3-4, ABLE TO COMMUNICATE NEEDS IN SHORT PHRASES DUE TO RESPIRATORY DEMAND. MENTATION HAS IMPROVED THIS AFTERNOON/EVENING; PT MORE ALERT, ABLE TO COMMUNICATE NEEDS MORE CLEARLY. HR 100-110'S FOR MAJORITY OF SHIFT, 1 RUN OF RVR THIS AM THAT RESOLVED W/ IVP LOPRESSOR X1 - SEE EMAR. SBP 100-120'S, DENIES CHEST PAIN/PRESSURE. SPO2 >90% ON 2L VIA NC. RR 20'S AT REST, UP TO 30-40'S W/ EXERTION. CONDOM CATH REMAINS IN PLACE, VERY LITTLE URINE OUTPUT NOTED; MD AWARE, SEE PREVIOUS NOTE. NO BM'S. C/O PAIN AT START OF SHIFT THAT HAS SINCE RESOLVED. PT ASSISTED W/ REPOSITIONING T/O SHIFT. MINIMAL PO INTAKE FOR DINNER. PUREE DIET IN PLACE W/ THICKENED LIQUIDS. FAMILY AT THE BEDSIDE THIS EVENING, REMAIN VERY SUPPORTIVE OF PLAN OF CARE. NO OTHER NEEDS AT THIS TIME, CALL LIGHT IN REACH.
[2024-07-20] VITALS (56 sets, daily range): BP systolic 100–147; BP diastolic 54–106
[2024-07-20 04:54] LABS: BASOPHILS PERCENT AUTO 0 % (0-2); EOSINOPHILS PERCENT AUTO 0 % (0-6); Hematocrit 39.3 % (37.0-53.0); Hemoglobin 12.3 g/dL (13.5-17.5); IMMATURE GRAN ABSOLUTE AUTO 0.03 K/mm3 (0.00-0.10); IMMATURE GRAN PERCENT AUTO 0 % (0-1); LYMPHOCYTES PERCENT AUTO 6 % (21-46); MONOCYTES ABSOLUTE AUTO 0.67 K/mm3 (0.16-1.47); MONOCYTES PERCENT AUTO 8 % (4-13); Mean Corpuscular HGB 26.3 pg (26.0-34.0); Mean Corpuscular HGB Conc 31.3 g/dL (31.5-36.5); Mean Corpuscular Volume 84 fL (80-100); Mean Platelet Volume 10.4 fL (9.1-12.4); NEUTROPHILS ABSOLUTE AUTO 7.63 K/mm3 (1.96-9.15); NEUTROPHILS PERCENT AUTO 86 % (41-73); NRBC Auto 1.1 /100 WBC (0.0-0.2); Platelet Count 193 K/mm3 (150-400); Red Blood Cell Count 4.67 M/mm3 (4.30-5.90); White Blood Cell Count 8.83 K/mm3 (4.00-11.30)
[2024-07-20 05:21] LABS: Bun/Creatinine Ratio 24.8 (12.0-20.0); Calcium, Blood 9.5 mg/dL (8.5-10.1); Creatinine, Blood 3.14 mg/dL (0.60-1.20); Potassium, Blood 4.7 mmol/L (3.5-5.5)
[2024-07-20] MEDS ORDERED: Clarify Drug Order XX ONE (06:10)
[2024-07-20] MEDS ORDERED: DOBUtamine 250 MG/D5W 250 ML 250 ML IV SCH (07:10)
--- NOTE | 2024-07-20 07:31 | NUR ---
SHIFT SUMMARY ASSUMED CARE OF PT AT 1900. FAMILY AT BEDSIDE, PT A&O4 AND SLOW TO ANSWER. PT ABLE TO CALL NURES' STATION AND MAKE NEEDS KNOWN. PT REPORTED PAIN OVERNIGHT PRN MED CONSULTING APPLICATION ENGINEER PER EMAR. HEP GTTS STOPPED THIS AM IN RESPONSE TO ORDERS RECIEVED. ABOUT 100ML URINE OUTPUT COLLECTED VIA CONDOM CATH AND VERY LITTLE SIPS OF THICKENED LIQUID GIVEN TO MOISTEN MOUTH AFTER COUGH FIT WITH A FULL DRINK. CALL LIGHT WITHIN REACH AND BED IN LOWEST POSITION
[2024-07-20] MEDS ORDERED: Enoxaparin 30 MG/0.3 ML SYR SC SCH (09:00)
[2024-07-20] MEDS ORDERED: Bumetanide 0.25 MG/ML 4ML ViaL IV SCH (09:00)
[2024-07-20] MEDS ORDERED: CefTRIAXone Sodium 1,000 MG in NS 100 ML IV SCH (09:00)
[2024-07-20 09:13] LABS: Source, Urine Foley catheter
[2024-07-20 09:19] LABS: Appearance, Urine Clear (Clear); Bilirubin, Urine Neg (Neg); Blood, Urine Neg (Neg); Color, Urine Yellow (P-Yellow); Glucose Qualitative, Urine Neg (Neg); Ketones, Urine Neg (Neg); Leukocyte Esterase, Urine Neg (Neg); Nitrite, Urine Neg (Neg); Protein, Urine 3+ (Neg); Urobilinogen, Urine NORM (Normal)
[2024-07-20 09:36] LABS: Bacteria Rare /hpf; Hyaline Casts 0-2 /lpf (0-2); Red Blood Cells, Urine 0-2 /hpf (0-2); Squamous Epithelial Cells Rare /hpf (Few); White Blood Cells, Urine 0-2 /hpf (0-5)
[2024-07-20] MEDS ORDERED: Doxycycline Hyclate 100 MG in Dextrose 5% 250 ML IV SCH (09:38)
[2024-07-20 09:56] LABS: PCO2 Venous 38.7 mmHg (38-42)
--- NOTE | 2024-07-20 10:42 | NUR ---
ASSUMPTION OF CARE/TRANSFER TO ICU: THIS RN ASSUMED CARE OF PT AT APPROX 0715. PT LETHARGIC THIS AM, WAKES TO VERBAL STIMULI. ABLE TO PARTICIPATE MINIMALLY IN CONVERSATION PT APPEARS TO FALL ASLEEP MID-SENTENCE. ABLE TO ANSWER ORIENTATION QUESTIONS APPROPRIATELY. AM VSS. HR 100-110'S, AFIB ON TELE. SBP 110'S, DENIES CHEST PAIN/PRESSURE. SPO2 >90% ON 2L VIA NC. RR 20-30'S, DYSPNEA W/ ANY EXERTION NOTED. PER CARDIOLOGY ORDER, PLAN TO TRANSFER PT TO ICU TO INITIATE DOBUTAMINE GTT. PT & FAMILY AGREEABLE TO CARE PLAN AT THIS TIME. SPEECH THERAPY TO BEDSIDE THIS MORNING, RECOMMENDING NPO AT THIS TIME, MEDS WHOLE IN APPLESAUCE - SEE ORDERS. ALL PO AM MEDS HELD DUE TO LETHARGY AND RISK FOR ASPIRATION, MD COLES AWARE. PT & FAMILY EDUCATED ON NPO STATUS. SMITH CATH PLACED FOR ACCURATE I&O'S DUE TO DECLINING RENAL FUNCTION; UA SENT PER PROTOCOL. REPORT TO CARLOS OROURKE IN ICU TO ASSUME CARE. PT TRANSFERRED TO ICU-12 VIA BED W/ PERSONAL BELONGINGS AT APPROX 1030.
[2024-07-20] MEDS ORDERED: Metoprolol Tartrate 1 MG/ML 5 ML VIAL IV ONE ×2 (14:35→15:00)
[2024-07-20] MEDS ORDERED: Metoprolol Tartrate 1 MG/ML 5 ML VIAL IV PRN (15:00)
--- NOTE | 2024-07-20 17:32 | NUR ---
SHIFT SUMMARY PT TRANSFERED TO ICU AT 1030 FOR DOBUTAMINE GTT THIS SHIFT. PT A&O X 4. APPEARS TO FALL ASLEEP DURING CONVERSATIONS AND ASSESSMENT BUT WAKES c VERBAL STIMULI. FOLLOWS SIMPLE COMMANDS. C/O GENERALIZED BODY ACHES. DENIES NEEDS. AFIB, RATE 110-140'S THIS SHIFT, METOPROLOL IVP GIVEN FOR RATE CONTROL. LUNGS DIM IN BASES. 2L VIA NC. SPEAKING IN FULL SENTENCES, WEAK VOICE AND COUGH, NPO D/T ASPIRATION RISK. DOBUTAMINE GTT INFUSING FOR UO, AT MAX OF 10 MCG/KG/MIN, OK TO INFUSE PIV PER DR PORTILLO. INFUSING THROUGH LW, +BLOOD RETURN, CHECKED HOURLY. 670 ML OF CLEAR YELLOW URINE OUT THIS SHIFT, APPROX 60-100 ML/HR. ABD DISTENDED, HERNIA PRESENT, PT STATES THIS NORMAL. ONE BM THIS SHIFT. FAMILY UPDATED AT BEDSIDE. WILL CONTINUE PLAN OF CARE UNTIL REPORT TO ONCOMING NURSE.
[2024-07-20] MEDS ORDERED: Bumetanide 10 MG in Bag 1 BAG IV SCH (18:05)
[2024-07-21] VITALS (94 sets, daily range): BP systolic 76–187; BP diastolic 43–124
[2024-07-21 04:30] LABS: Bun/Creatinine Ratio 25.1 (12.0-20.0); Calcium, Blood 8.7 mg/dL (8.5-10.1); Creatinine, Blood 3.31 mg/dL (0.60-1.20)
--- NOTE | 2024-07-21 06:01 | NUR ---
SHIFT SUMMARY: PT HAS BEEN A&OX4 AND RESPONDING APPROPRIATELY THROUGHOUT THE NIGHT. HE HAS HAD >100 ML URINE OUTPUT CONSISTENTLY THROUGHOUT THE SHIFT. HE HAS SOME DISCOMFORT FROM HIS CATHETER, BUT IT THERE IS NO ABNORMALITY NOTED AT THE SITE. PT HAS BRUISING, REDNESS SCATTERED THROUGHOUT. HIS ABDOMEN IS DISTENDED AND HE HAS A HERNIA, BOTH ARE PRE-EXISTING AND "NORMAL" PER THE PATIENT. PT IS ON 2LPM NASAL CANNULA AND MAINTAINING SPO2 >94%. HIS HR HAS BEEN ELEVATED THROUGHOUT THE NIGHT, AFIB, AND AN AMIO DRIP WAS STARTED. THE PATIENT IS NOT ABLE TO SAFELY SWALLOW PO MEDICATIONS. HE STATES HE FEELS LIKE THERE IS SOMETHING STUCK IN HIS THROAT AFTER PO AMIO ADMIN EARLIER IN THE NIGHT.
--- NOTE | 2024-07-21 07:05 | NUR ---
ASSUMED CARE. PT IS JANUSZ IN BED WITH EYES CLOSED, RESTING. HE ROUSED TO VERBAL STIMULI DURIN BSSR. HE IS ON 1LPM 02 VIA NC, HIS RESPIRATIONS ARE EVEN AND UNLABORED. HIS SPO2 >96. PT IS ON CONTINUOUS CARDIAC MONITORING SHOWING AFIB W/ RATE IN 120-130S. HIS SYSTOLIC BP IS >100, MAP >70. PT IS ON DOBUTAMINE 7MCG/KG/MIN W/ NEW ORDER TO TITRATE DOWN 1MCG/KG/MIN PER HOUR AND TURN TO SB. AMIODARONE WAS D/C THIS AM BY NOC RN. SMITH CATH IS PATENT AND DRAINING CLEAR YELLOW URINE TO GRAVITY. BED IN LOWEST POSITION. CALL LIGHT IN REACH.
[2024-07-21] MEDS ORDERED: Heparin Sodium,Porcine 5,000 UNIT/0.5 ML SDV SC SCH (09:00)
[2024-07-21] MEDS ORDERED: Amiodarone HCl 200 MG Tab PO SCH (13:00)
--- NOTE | 2024-07-21 16:53 | NUR ---
Met with pt and family on 07/19. Pt was still in PCU at that time. We discussed poor prognosis and full code status, and patient stated he would "discuss hospice" with his family after we had an in depth discussion regarding the benefits of hospice on quality of life. Returned today to find patient now in ICU, will meet again with pt and family for update in the am. Pt's son and daughter are very realistic regarding prognosis, and is supportive with "whatever" the patient chooses. As of Friday, the patient had insisted he remain a full code. As of today, changed to limited. Will reach out again tomorrow to family and patient for updates.
--- NOTE | 2024-07-21 18:32 | NUR ---
NOTIFIED DR. COLES OF REDDENED COCCYX, MEPILEX IN PLACE, NO NEW ORDERS.
--- NOTE | 2024-07-21 18:34 | NUR ---
SHIFT SUMMARY. PT HAS BEEN ORIENTED TO PERSON AND PLACE. HE HAS HAD INTERMITTENT CONFUSION T/O DAY ABOUT TIME AND MONTH. HE IS DROWSY AND SLEEPS UNLESS ROUSED BY NURSE OR FAMILY. PT IS ON CONTINUOUS CARDIAC MONITORING W/ SYSTOLIC BP >80, MAP >65. HR HAS BEEN 110-130S. HE HAS BEEN ON RA WITH SPO2 >96. HIS RESPIRATIONS HAVE BEEN EVEN AND UNLABORED. PT HAS SMITH CATH PATENT AND DRAINING YELLOW URINE TO GRAVITY. HE HAS NOT HAD BM TIHS SHIFT. PT HAS POOR SKIN INTEGRITY. WOUND DRESSING ON LEFT ELBOW AND FOREARM WAS CHANGED. COCYXX WAS REDDENED BUT BLANCHABLE AND MEPLEX WAS PLACED. PROVIDER WAS INFORMED AND NOTE PLACED. FAMILY HAS BEEN AT BEDSIDE AND INVOLVED IN CARE T/O DAY. BED IN LOWEST POSITION, CALL LIGHT IN REACH.
[2024-07-21] MEDS ORDERED: Temazepam 7.5 MG Cap PO PRN (19:20)
--- NOTE | 2024-07-21 22:59 | NUR ---
update: Spoke with Yudith. Bumex gtt was stopped last night due to concern for fluid/electrolyte imbalance with high urine output each hour. Urine output today has been minimal. Yudith wants the gtt restarted and continued. He did not place and upper limit on urine output and confirmed titration based on a lower limit of 100ml/hr urine output or systolic BP <90.
[2024-07-22] VITALS (66 sets, daily range): BP systolic 92–130; BP diastolic 51–104
[2024-07-22 03:58] LABS: Bun/Creatinine Ratio 24.6 (12.0-20.0); Calcium, Blood 8.9 mg/dL (8.5-10.1); Creatinine, Blood 3.09 mg/dL (0.60-1.20)
--- NOTE | 2024-07-22 04:51 | NUR ---
SHIFT SUMMARY: PT HAD FAMILY AT BEDSIDE AT THE START OF SHIFT. HE SAID THAT HE SLEPT POORLY LAST NIGHT AND REQUESTED A SLEEPING PILL. HE WAS A&OX4 AT THE TIME. THROUGHOUT THE NIGHT PATIENT WOULD WAKE UP VERY CONFUSED, AT ONE POINT HE HAD ATTEMPTED TO PULL OUT HIS SMITH CATHETER AND CLIMB OUT OF BED. HE WAS EASY TO REORIENT EACH TIME THOUGH. HE IS CURRENTLY ON ROOM AIR WITH UNLABORED RESPIRATIONS. THOUGH HE GETS TACHYPNEIC WHILE HE SLEEPS AND WITH SMALL AMOUNTS OF EXERTION. HE IS ON THE SWEATBAND DRUMMER IN AFIB WITH PVC'S AT A RATE OF 100-140. BP HAS REMAINED STABLE. URINE OUTPUT HAS BEEN @ 100ML/HR ON BUMEX GTT OF 0.5MG. SMITH CATHETER IS STILL PATENT AND DRAINING TO GRAVITY. SCATTERED BRUISING ON PATIENT AND FRAGILE SKIN. HE READJUSTS AND MOVES ON HIS OWN WITH SOME ASSISTANCE PERIODICALLY. FAMILY HAD STATED THEY WOULD RETURN TODAY AND WILL CONTINUE TO DISCUSS FUTURE PLAN OF CARE AND HOPE TO SPEAK TO THE WEB COORDINATOR AGAIN WHEN THE PTS DAUGHTER IS AROUND.
[2024-07-22] MEDS ORDERED: Digoxin 0.5 MG in Dextrose 5% 50 ML IV ONE (06:50)
--- NOTE | 2024-07-22 08:15 | NUR ---
ASSUMED CARE. PT AWAKE DURING BSSR. HE HAS HAD INTERMITTENT CONFUSION PER NOC RN AND ATTEMPTED TO GET OUT OF BED. PT IS ON CONTINUOUS CARDIAC MONITORING W/ SYSTOLIC BP >100, MAP >70. HIS HR IS 110-120. PT RESPIRATIONS ARE EVEN AND UNLABORED W/ SPO2 >96 ON RA. PT HAS BUMEX INFUSION OF 1MCG/HR AND TKO. HE HAS A MIDLINE AND L-FOREARM PIV. PT HAS SMITH CATH PATENT AND DRAINING TO GRAVITY. BED IN LOWEST POSITION, CALL LIGHT IN REACH.
[2024-07-22] MEDS ORDERED: Heparin Sodium,Porcine 5,000 UNIT/0.5 ML SDV SC SCH (09:00)
[2024-07-22] MEDS ORDERED: Digoxin 0.25 MG/ML 2ML Amp IV STA (13:06)
[2024-07-22 15:31] LABS: Bun/Creatinine Ratio 24.7 (12.0-20.0); Calcium, Blood 8.8 mg/dL (8.5-10.1); Creatinine, Blood 2.91 mg/dL (0.60-1.20); Magnesium, Blood 2.1 mg/dL (1.6-2.4); Potassium, Blood 3.6 mmol/L (3.5-5.5)
--- NOTE | 2024-07-22 17:33 | NUR ---
SHIFT SUMMARY. PT WAS INITIALLY ALERT AND ORIENTED X4 THIS MORNING AND AWAKE, HOWEVER, T/O THE DAY HE HAS BECOME MORE CONFUSED. HE WAS ONLY ABLE TO CORRECTLY IDENTIFY SELF AND SOME FAMILY IN THE ROOM. BUMEX DRIP PLACED ON SB PER DR. FUNES. PT HAS BEEN ON CONTINUOUS CARDIAC MONITORING SHOWING NSR, SYSTOLIC BP >100, MAP >70 WITH HR IN 70-80S. PT RESPIRATIONS HAVE BEEN EVEN AND UNLABORED WITH SPO2 >96. HE IS EATING 50% OF MEALS AND TAKING ENSURE TO SUPPLEMENT MEALS. PT HAD MULTIPLE BOWEL MOVEMENTS TODAY. HIS SMITH CATH IS PATENT AND DRAINING CLEAR YELLOW URINE TO GRAVITY. THE URETHRAL ORIFICE HAS CRUSTED DRIED BLOOD, HOWEVER IT THE TISSUE APPEARS UNDAMAGED AND FREE OF ULCERATIONS. PATIENT FAMILY HAS BEEN AT BEDSIDE T/O DAY. BED IN LOWEST POSITION. CALL LIGHT IN REACH.
[2024-07-22] MEDS ORDERED: Potassium Chloride 20 MEQ TabCR PO ONE (19:00)
[2024-07-22] MEDS ORDERED: Potassium Chloride 10 Meq Tablet SA PO ONE (19:35)
[2024-07-22] MEDS ORDERED: Potassium Chl 10MEQ/Water100ML 100 ML IV ONE (19:40)
[2024-07-22] MEDS ORDERED: Bumetanide 0.25 MG/ML 10ML Vial IV ONE (20:40)
[2024-07-22] MEDS ORDERED: Arginine/Glutamine/Calcium Hmb 1 Packet PO SCH (21:00)
[2024-07-23] VITALS (20 sets, daily range): BP systolic 96–136; BP diastolic 46–107
[2024-07-23 04:44] LABS: Albumin, Blood 3.2 g/dL (3.4-5.0); Anion Gap 12 mmol/L (3-11); Blood Urea Nitrogen 75 mg/dL (8-24); Bun/Creatinine Ratio 29.3 (12.0-20.0); CO2, Blood 29 mmol/L (21-32); Calcium, Blood 8.4 mg/dL (8.5-10.1); Chloride, Blood 97 mmol/L (98-108); Creatinine, Blood 2.56 mg/dL (0.60-1.20); Glomerular Filtration Rate 24 (60-); Glucose, Blood 93 mg/dL (70-99); Magnesium, Blood 1.7 mg/dL (1.6-2.4); Potassium, Blood 3.1 mmol/L (3.5-5.5); Sodium, Blood 135 mmol/L (136-145)
--- NOTE | 2024-07-23 05:04 | NUR ---
SHIFT SUMMARY: PT WAS VERY DROWSY AND DIFFICULT TO WAKE AT THE BEGINNING OF THE SHIFT. AFTER THAT INITIAL ASSESSMENT HE WAS EASY TO AWAKEN AND WAS APPROPRIATELY ORIENTED THROUGHOUT SHIFT. HE'S REMAINED IN AFIB WITH PVC'S AT A RATE OF 60S-90S. BLOOD PRESSURES HAVE BEEN STABLE. URINE OUTPUT HAS BEEN ABOVE GOAL ALL SHIFT. HE HAS REMAINED ON ROOM AIR THROUGHOUT SHIFT. CONTINUING BUMEX IVP AND POTASSIUM REPLACEMENT MOVING FORWARD.
[2024-07-23] MEDS ORDERED: Potassium Chloride 20 MEQ TabCR PO SCH ×2 (08:00→09:00)
[2024-07-23] MEDS ORDERED: Bumetanide 0.25 MG/ML 4ML ViaL IV SCH (09:00)
[2024-07-23] MEDS ORDERED: Bumetanide 1 MG Tab PO SCH (09:00)
[2024-07-23] MEDS ORDERED: Metoprolol Succinate 25 MG TABCR PO SCH (09:00)
[2024-07-23] MEDS ORDERED: Amiodarone HCl 200 MG Tab PO SCH (09:00)
[2024-07-23] MEDS ORDERED: Empagliflozin 10 MG TAB PO SCH (09:00)
--- NOTE | 2024-07-23 16:52 | NUR ---
SUMMARY PT A/O X4 MOST OF THE DAY. THIS EVENING HE IS DROWSY AND A/O TO SELF AND FAMILY EASILY REORIENTED. PT HAS DONE THIS WITH MENTATION CONSISTENTLY THE LAST 3 DAYS, THEN HE WILL CLEAR UP AFTER DINNER. OOB TO RECLINER CHAIR FOR A FEW HOURS TODAY. 2 PERSON ASSIST WITH GAITBELT. EATING 100% OF MEALS AND DRINKING 100% OF ENSURE. SWALLOWING PILLS WELL WITH WATER. CHANGED TO PCU STATUS. REPORT GIVEN TO OMAR IN PCU.
--- NOTE | 2024-07-23 17:58 | NUR ---
PT TRANSFERRED FROM ICU WITH ALL BELONGINGS. PLACED ON TELE. ASSESSMENT CHARTED. AND DAUGHTER UPDATED AND AT BEDSIDE. PT SETTLED INTO ROOM AND SET UP WITH DINNER. CALL ZAMORA WITHIN REACH.
[2024-07-24 03:49] VITALS: BP 98/56
[2024-07-24 04:37] LABS: Albumin, Blood 3.2 g/dL (3.4-5.0); Anion Gap 12 mmol/L (3-11); Blood Urea Nitrogen 77 mg/dL (8-24); Bun/Creatinine Ratio 34.1 (12.0-20.0); CO2, Blood 30 mmol/L (21-32); Calcium, Blood 8.4 mg/dL (8.5-10.1); Chloride, Blood 95 mmol/L (98-108); Creatinine, Blood 2.26 mg/dL (0.60-1.20); Glomerular Filtration Rate 28 (60-); Glucose, Blood 114 mg/dL (70-99); Magnesium, Blood 1.7 mg/dL (1.6-2.4); Phosphorus, Blood 1.9 mg/dL (2.5-4.9); Potassium, Blood 3.8 mmol/L (3.5-5.5); Sodium, Blood 133 mmol/L (136-145)
[2024-07-24 08:43] VITALS: BP 106/56
[2024-07-24 11:40] VITALS: BP 104/51
[2024-07-24 15:02] VITALS: BP 110/56
--- NOTE | 2024-07-24 16:41 | NUR ---
SHIFT SUMMARY PT A&Ox4, CALLS AND COMMUNICATES NEEDS APPROPRIATELY. MOMENTS OF CONFUSION. FAMILY AT BEDSIDE. PT REPORTS FEELING A LITTLE MORE TIRED TODAY. BP STABLE, AFIB 70's, DENIES CP/PRESSURE. THIS RN HEARD AICD MAKE A CHIME NOISE DURING MORNING ASSESSMENT, NOTIFIED CARDIOLOGY AND INSTRUCTED TO INTERROGATE. FRONT DESK REPRESENTATIVE TO BEDSIDE ONCE INTERROGATION REPORT RECEIVED TO DISCUSS REPORT WITH PT/FAMILY. SpO2> 92% RA, DENIES SOB. 1-2 ASSIST w/ FWW TO BSC, CONTINENT OF BOWEL, SMITH CATH IN PLACE, PATENT & DRAINING CLEAR YELLOW URINE TO GRAVITY. NO C/O PAIN. NO OTHER EVENTS, WILL REPORT TO ONCOMING RN.
[2024-07-24 20:40] VITALS: BP 105/53
[2024-07-24 23:03] VITALS: BP 106/50
[2024-07-25] VITALS (7 sets, daily range): BP systolic 90–119; BP diastolic 50–59
[2024-07-25 04:17] LABS: Albumin, Blood 3.2 g/dL (3.4-5.0); Anion Gap 11 mmol/L (3-11); Blood Urea Nitrogen 79 mg/dL (8-24); Bun/Creatinine Ratio 44.1 (12.0-20.0); CO2, Blood 30 mmol/L (21-32); Calcium, Blood 8.8 mg/dL (8.5-10.1); Chloride, Blood 95 mmol/L (98-108); Creatinine, Blood 1.79 mg/dL (0.60-1.20); Glomerular Filtration Rate 37 (60-); Glucose, Blood 104 mg/dL (70-99); Magnesium, Blood 1.7 mg/dL (1.6-2.4); Phosphorus, Blood 1.7 mg/dL (2.5-4.9); Potassium, Blood 4.4 mmol/L (3.5-5.5); Sodium, Blood 132 mmol/L (136-145)
--- NOTE | 2024-07-25 05:23 | NUR ---
shift summary- ernesto a/o x3 tonight, disoriented about what town he is in. states he is in [place]. he was very lethargic most of the night, talking without opening his eyes. ernesto up to BSC with 2p staff assist- ambulated fairly well, albeit he was lethargic during the process. ernesto slept almost the entire night, minimal confused episodes noted throughout. no other needs noted, will continue to monitor.
[2024-07-25 08:44] LABS: Hematocrit 37.9 % (37.0-53.0); Mean Corpuscular HGB 25.6 pg (26.0-34.0); Mean Corpuscular HGB Conc 31.7 g/dL (31.5-36.5); Mean Corpuscular Volume 81 fL (80-100); Mean Platelet Volume 9.2 fL (9.1-12.4); NRBC ABSOLUTE 0.02 K/mm3 (0.00-0.02); NRBC Auto 0.2 /100 WBC (0.0-0.2); Platelet Count 140 K/mm3 (150-400); RDW Standard Deviation 49.9 fL (35.1-46.3); Red Blood Cell Count 4.69 M/mm3 (4.30-5.90); White Blood Cell Count 9.05 K/mm3 (4.00-11.30)
[2024-07-25] MEDS ORDERED: Potassium Chloride 10 Meq Tablet SA PO SCH ×2 (09:00)
[2024-07-25 09:26] LABS: Base Excess Venous 9.4 mmol/L; Bicarbonate Venous 31.8 mmol/L (24.0-30.0); pH Blood Venous 7.47 (7.34-7.37)
[2024-07-25] MEDS ORDERED: Lactulose 20 GM/30 ML UDC PO ONE (14:00)
[2024-07-25] MEDS ORDERED: Sodium Phosphate 20 MM in Dextrose 5% 500 ML IV STA (15:37)
[2024-07-25] MEDS ORDERED: BIOTENE SALIVA STIMULANT 44.3 ML BOTTLE MM PRN (16:50)
--- NOTE | 2024-07-25 17:37 | NUR ---
SHIFT SUMMARY PT MORE LETHARGIC THAN YESTERDAY, TROUBLE STAYING AWAKE WHILE CARE WAS PROIVDED. ANSWERS ORIENTATION QUESTIONS APPROPRIATELY, CALLS AND COMMUNICATES NEEDS APPROPRIATELY. MOMENTS OF CONFUSION. FAMILY AT BEDSIDE. PT REPORTS HE IS VERY TIRED AND DOESN'T FEEL RIGHT, STATED "I WANT TO GO HOME AND GO NATURALLY." PHYSICIAN NOTIFIED, NO NEW ORDERS AT THIS TIME. BP STABLE, AFIB 70's, DENIES CP/PRESSURE. SpO2> 92% RA, DENIES SOB. 1-2 ASSIST w/ FWW TO BSC, CONTINENT OF BOWEL, SMITH CATH IN PLACE, SMALL AMOUNT OF BLOOD AT URETHRA DURING BEDBATH, NO BLOOD SINCE; DRAINING CLEAR YELLOW URINE TO GRAVITY. NO C/O PAIN. NO OTHER EVENTS, WILL REPORT TO ONCOMING RN.
--- NOTE | 2024-07-25 19:33 | NUR ---
ASSUMPTION OF CARE: PATIENT IS ALERT AND ORIENTED X4 ANSAWERS QUESTIONS APPROPRIATELY, SLEEPY, HOSPITALIST AWARE, PATIENT APPEARS TO BE OVERALL GENERALLY FATIGUE AND WEAK, DENIED NEED FOR REPOSITION AT THIS TIME. DENIES CHEST PAIN PRESSURE OR SOB. ABLE TO MOVE ALL EXTREMES IN BED. WEAK NONPRODUCTIVE COUGH NOTED. ENDORSES PASSING FLATULANCE, SOCIAL MEDIA COORDINATOR IN PLACE, DAY RN ENDORSED SOFTER BLOOD PRESSURE, SMITH DRAINING WELL TO GRAVITY. PATIENT ON RA SATURATING >96%. NO ACUTE SIGN OF DISTRESS AT TIME OF ASSESSMENT. BED ALRM ON FOR SAFETY. PLAN OF CARE CONTINUING
[2024-07-26] VITALS (7 sets, daily range): BP systolic 98–109; BP diastolic 49–64
--- NOTE | 2024-07-26 03:27 | NUR ---
EOS: PATIENT REMAINS UNCHANGED FROM PLAN OF CARE, STILL DENIES CHEST PAIN PRESSURE OR SOB AT REST. Q2 REPOSITIONES PROVIDED. NO ACUTE CONCERNS FROM THIS RN OR THE PATIENT AT THIS TIME. PLAN OF CARE CONTINUES.
[2024-07-26 04:07] LABS: Albumin, Blood 3.1 g/dL (3.4-5.0); Anion Gap 11 mmol/L (3-11); Blood Urea Nitrogen 73 mg/dL (8-24); Bun/Creatinine Ratio 41.2 (12.0-20.0); CO2, Blood 32 mmol/L (21-32); Calcium, Blood 8.4 mg/dL (8.5-10.1); Chloride, Blood 96 mmol/L (98-108); Creatinine, Blood 1.77 mg/dL (0.60-1.20); Glomerular Filtration Rate 38 (60-); Glucose, Blood 106 mg/dL (70-99); Magnesium, Blood 1.8 mg/dL (1.6-2.4); Phosphorus, Blood 2.5 mg/dL (2.5-4.9); Potassium, Blood 3.9 mmol/L (3.5-5.5); Sodium, Blood 135 mmol/L (136-145)
[2024-07-26] MEDS ORDERED: Potassium Chloride 10 Meq Tablet SA PO SCH (08:00)
[2024-07-26] MEDS ORDERED: Bumetanide 1 MG Tab PO SCH (09:00)
[2024-07-26] MEDS ORDERED: Tamsulosin HCl 0.4 MG Cap PO SCH (09:00)
--- NOTE | 2024-07-26 18:58 | NUR ---
SHIFT SUMMARY: PT A&OX4. FOLLOWS COMMANDS AND MAKES NEEDS KNOWN TO STAFF. PT GOT OUT OF BED SEVERAL TIMES TODAY WITH STAFF TO USE THE COMMODE AND TO GET UP TO THE CHAIR FOR MEALS. PTS SMITH WAS REMOVED THIS AM AND HAS BEEN ABLE TO VOID SINCE REMOVAL. PT DENIED ANY CP OR SOB DURING THE DAY. NO ACUTE NEURO CHANGES. NO SIGNIFICANT EVENTS HAPPENED DURING THIS SHIFT. REPORT TO FRANKLIN GONZALEZ TO ASSUME CARE OF PT.
--- NOTE | 2024-07-26 19:34 | NUR ---
ASSIMPTION OF CARE: PATIENT SLEEPING, AWAKE TO VERBAL STIMULI, PATIENT IS UNCHANGED FROM END OF SHIFT EXCEPT HE NO LONGER HAS A SMITH, VOIDING FINE VIA URINAL. DENIES CHEST PAIN PRESSURE OR SOB. BLOOD PRESSURE REMAINS SOFT, PLAN OF CARE CONTINUES.
[2024-07-27 04:14] VITALS: BP 103/59
[2024-07-27 05:04] LABS: Anion Gap 9 mmol/L (3-11); Blood Urea Nitrogen 77 mg/dL (8-24); Bun/Creatinine Ratio 44.8 (12.0-20.0); CO2, Blood 31 mmol/L (21-32); Calcium, Blood 8.6 mg/dL (8.5-10.1); Chloride, Blood 97 mmol/L (98-108); Creatinine, Blood 1.72 mg/dL (0.60-1.20); Glomerular Filtration Rate 39 (60-); Glucose, Blood 112 mg/dL (70-99); Magnesium, Blood 2.2 mg/dL (1.6-2.4); Phosphorus, Blood 2.3 mg/dL (2.5-4.9); Sodium, Blood 133 mmol/L (136-145)
--- NOTE | 2024-07-27 05:53 | NUR ---
EOS: NO CHANGES FROM ASSUMPTION OF CARE, STILL DENIES CHEST PAIN PRESSURE OR SOB. PLAN OF CARE CONTINUES, OVERALL STATUS IMPROVING, VERY SLOWLY. NO ACUTE CONCERNS FROM THIS RN OR PATIENT
[2024-07-27 08:00] VITALS: BP 98/58
--- NOTE | 2024-07-27 08:54 | NUR ---
NURSE NOTE ASSUMED CARE AT 0715. DR. MCKEON ROUNDING ON PATIENT, DISSCUSSED POSSIBLE DISCHARGE TO REHAB FACILITY IN A FEW DAYS, PATIENT VOICED UNDERSTANDING TO THIS PLAN. CALL LIGHT IN REACH.
[2024-07-27 09:00] VITALS: BP 98/58
[2024-07-27] MEDS ORDERED: Potassium Chloride 20 MEQ TabCR PO SCH (09:00)
[2024-07-27] MEDS ORDERED: Bumetanide 1 MG Tab PO SCH (09:00)
--- NOTE | 2024-07-27 10:35 | NUR ---
NURSE NOTE PT VISITED BY OT, OT UNABLE TO GET PATIENT TO PARTICIPATE CALLED THIS RN TO BEDSIDE. I ASSED PATIENT'S WILLINGNESS TO WORK WITH OT PATIENT SAID, "I TOLD HER TO LEAVE ME ALONE ALREADY." EDUCATED PATIENT ON IMPORTANCE OF WORKING W/ OT PATIENT STILL REFUSED.
[2024-07-27 15:07] VITALS: BP 96/59
--- NOTE | 2024-07-27 17:01 | NUR ---
PATIENT ARRIVED TO UNIT AT 1700 WITH ALL BELONGINGS AND CHART. FAMILY AT BEDSIDE INCLUDING TWO DAUGHTERS AND . HARD OF HEARING. GLASSES AT BEDSIDE.
--- NOTE | 2024-07-27 17:04 | NUR ---
NURSE NOTE PATIENT A+O X4, ABLE TO MAKE NEEDS KNOWN. PATIENT IS RUBY SO STAFF MAYBE NEED TO SPEAK UP AND FACE PATIENT WHEN SPEAKING. SBA W/ FWW AND GAIT BELT, USES URINAL IN BED. PATIENT DID NOT WORK WITH PT OR OT TODAY WHEN THEY ROUNDED ON HIM. VSS W/ SYSTOLIC B/P IN THE 90S, MAP ABOVE 60. FAMILY AT BEDSIDE THROUGHOUT SHIFT. REPORT GIVEN TO MEDICAL FLOOR RN. PATIENT TRANSFERED IN A BED TO NEW ROOM, PERSONAL BELONGINGS GATHERED.
--- NOTE | 2024-07-27 19:21 | NUR ---
END OF SHIFT SUMMARY: A&Ox4. PLEASANT AND COOPERATIVE WITH CARE. CALLS APPROPRIATELY AND IS ABLE TO ADVOCATE NEEDS EFFECTIVELY. CONTINENT OF BOWEL AND BLADDER; USES URINAL FOR VOIDING AND BSC FOR BM. 1PA c FWW. LBM TODAY. MEDS WHOLE WITH FLUIDS. TELE A-FIB. Hx WATCHMAN PROCEDURE TO CONTROL. NO C/O PAIN OR DISCOMFORT. UP TO CHAIR FOR MEALS, AND BACK TO BED AT BEDTIME. REQUESTING SIMETHICONE c BEDTIME MEDS. BED IN LOWEST POSITION. CALL LIGHT WITHIN REACH. ALL NEEDS MET. REPORT TO ONCOMING NURSE.
[2024-07-27 20:11] VITALS: BP 102/51
[2024-07-28 03:07] VITALS: BP 100/47
--- NOTE | 2024-07-28 05:53 | NUR ---
SHIFT SUMMARY PT A&Ox4. CALLS APPROPRIATLY. NO C/O PAIN. PT SLEPT ON AND OFF T/O NIGHT. VSS BUT BP REMAINS SOFT. ABLE TO HAVE MEDIUM BM DURING THE NIGHT. NO ACUTE CHANGES. BED IN LOWEST POSITION AND CALL LIGHT IN REACH.
[2024-07-28 06:03] LABS: Anion Gap 8 mmol/L (3-11); Blood Urea Nitrogen 80 mg/dL (8-24); Bun/Creatinine Ratio 54.1 (12.0-20.0); CO2, Blood 30 mmol/L (21-32); Calcium, Blood 8.5 mg/dL (8.5-10.1); Chloride, Blood 99 mmol/L (98-108); Creatinine, Blood 1.48 mg/dL (0.60-1.20); Glomerular Filtration Rate 47 (60-); Glucose, Blood 105 mg/dL (70-99); Phosphorus, Blood 2.5 mg/dL (2.5-4.9); Potassium, Blood 4.1 mmol/L (3.5-5.5); Sodium, Blood 133 mmol/L (136-145)
[2024-07-28 07:40] VITALS: BP 99/56
--- NOTE | 2024-07-28 10:49 | NUR ---
OOB FOR BREAKFAST, CALLS WHEN NEEDING HELP, ALERT AND ORIENTEDX4, REFUSED COLACE THIS AMD, CALL LIGHT WITH IN REACH
--- NOTE | 2024-07-28 13:55 | NUR ---
FAMILY IN HELPING WITH PATIENT, HELPFUL TO CARE, ATE LUNCH AND BREAKFAST, DENIES PAIN OR NEED FOR PAIN MEDICATIONS, CALL LIGHT WITH IN REACH
[2024-07-28 15:21] VITALS: BP 99/43
--- NOTE | 2024-07-28 15:23 | NUR ---
dr wilson striker out in rounding on patient
--- NOTE | 2024-07-28 17:44 | NUR ---
NO ACUTE CHANGES, FAMILY AT BEDSIDE, PATIENT PLEASANT AND ORIENTED X3, EKUK, PT/OT WORKED WITH PATIENT, CALL LIGHT WITH IN REACH, WILL RELAY TO PM RN
[2024-07-28 19:29] VITALS: BP 85/42
[2024-07-28 19:34] VITALS: BP 93/54
[2024-07-28 21:15] VITALS: BP 93/54
[2024-07-29 02:42] VITALS: BP 92/49
--- NOTE | 2024-07-29 05:50 | NUR ---
SHIFT SUMMARY PT A&Ox4. NO C/O PAIN. PT WOKE DURING THE NIGHT AND HAD A DIFFICULT TIME GETTING BACK TO SLEEP. PT ONLY ABLE TO SLEEP ON AND OFF T/O NIGHT. FAMILY AT BEDSIDE AT START OF SHIFT. VSS BUT BP REMAINS SOFT. NO EVENTS ON TELE. BED IN LOWEST POSITION AND CALL LIGHT IN REACH.
[2024-07-29 06:21] LABS: Albumin, Blood 2.9 g/dL (3.4-5.0); Anion Gap 12 mmol/L (3-11); Blood Urea Nitrogen 93 mg/dL (8-24); Bun/Creatinine Ratio 63.7 (12.0-20.0); CO2, Blood 25 mmol/L (21-32); Calcium, Blood 8.9 mg/dL (8.5-10.1); Chloride, Blood 98 mmol/L (98-108); Creatinine, Blood 1.46 mg/dL (0.60-1.20); Glomerular Filtration Rate 48 (60-); Glucose, Blood 105 mg/dL (70-99); Potassium, Blood 4.4 mmol/L (3.5-5.5); Sodium, Blood 131 mmol/L (136-145)
[2024-07-29 07:34] VITALS: BP 88/47
[2024-07-29] MEDS ORDERED: BUME1 PO (10:42)
[2024-07-29] MEDS ORDERED: AMIODARONE HCL200 M1 PO (10:43)
[2024-07-29] MEDS ORDERED: CLOP75 PO (10:43)
[2024-07-29] MEDS ORDERED: TAMS.4ER PO (10:43)
[2024-07-29] MEDS ORDERED: FAMO20 PO (10:44)
[2024-07-29 11:52] LABS: SARS-Cov-2 (COVID-19) PCR, MMC NEGATIVE (NEGATIVE)
--- NOTE | 2024-07-29 15:37 | NUR ---
DISCAHRGED VIA W/C AMBULANE TO [facility], FAMILY ACCOMPANIED, REPORT TO SNF, PATIENT PLEASANT TO CARE, PATIENT AND FAMILY DENIED FURTHER QUESTIONS
== END 2024-07-29 15:30 | DRG 280 ==
LOC: ER 21:38 → PCU 21:39 → MEDS 21:39 → PCU 07-18 06:22 → MEDS 07-18 13:28 → PCU 07-18 13:28 → ICUE 07-20 10:30 → PCU 07-23 17:38 → MEDS 07-27 17:07 → ENPENDDIS 07-29 10:35 → MEDS 07-29 15:30
PROVIDERS: Family Medicine; Hospitalist; Internal Medicine; Internal Medicine Cardiovascular Disease; Student in an Organized Health Care Education/Training Program; ADMIT Internal Medicine
DX: I21.4 Non-ST elevation (NSTEMI) myocardial infarction (principal); G92.8 Other toxic encephalopathy; I50.23 Acute on chronic systolic (congestive) heart failure; J96.01 Acute respiratory failure with hypoxia; R57.0 Cardiogenic shock; I47.20 Ventricular tachycardia, unspecified; I48.19 Other persistent atrial fibrillation; N17.9 Acute kidney failure, unspecified; I25.10 Atherosclerotic heart disease of native coronary artery without angina pectoris; E87.6 Hypokalemia; N18.30 Chronic kidney disease, stage 3 unspecified; E11.22 Type 2 diabetes mellitus with diabetic chronic kidney disease; S00.03XA Contusion of scalp, initial encounter; W18.30XA Fall on same level, unspecified, initial encounter; K44.9 Diaphragmatic hernia without obstruction or gangrene; I08.1 Rheumatic disorders of both mitral and tricuspid valves; D63.1 Anemia in chronic kidney disease; I25.5 Ischemic cardiomyopathy; E83.39 Other disorders of phosphorus metabolism; E78.5 Hyperlipidemia, unspecified; H91.90 Unspecified hearing loss, unspecified ear; I25.2 Old myocardial infarction; Z79.899 Other long term (current) drug therapy; Z79.4 Long term (current) use of insulin; Z79.2 Long term (current) use of antibiotics; Z79.02 Long term (current) use of antithrombotics/antiplatelets; Z95.1 Presence of aortocoronary bypass graft; Z87.891 Personal history of nicotine dependence; Z79.82 Long term (current) use of aspirin; Z98.890 Other specified postprocedural states; Z95.810 Presence of automatic (implantable) cardiac defibrillator
CPT/HCPCS: 0241U; 36415; 70450; 71045; 72125; 74176; 76604; 80047; 80048; 80053; 80069; 81001; 82140; 82570; 82803; 82947; 83735; 83880; 84132; 84156; 84439; 84443; 84484; 85014; 85025; 85027; 85520; 85610; 85730; 86850; 86900; 86901; 92526; 92610; 93005; 93010; 94760; 94762; 96361; 96365; 96375; 96376; 97110; 97116; 97161; 97166; 97530; 97535; 99285-25; A9270; C1751; G0378; J0282; J0456; J0696; J1160; J1250; J1644; J1650; J1940; J2405; J2919; J3480; J7050; J7060; J7120; U0002

== ENCOUNTER 2024-08-20 02:37 | Inpatient (IN) | payer MEDICARE ==
[~2024-08-20] VITALS: Ht 177.8 cm; Wt 75.5 kg
[~2024-08-20 02:37] MED LIST changes: +AMIODARONE HCL200 M1 PO; +Acetaminophen650 M1 PO; +BUME1 PO; +CLOP75 PO; +FAMO20 PO; +Isosorbide Mono60 MG PO; +SPIRONOLACTONE25 MG PO; +TAMS.4ER PO
[2024-08-20 03:41] LABS: BASOPHILS ABSOLUTE AUTO 0.06 K/mm3 (0.00-0.23); BASOPHILS PERCENT AUTO 1 % (0-2); EOSINOPHILS ABSOLUTE AUTO 0.25 K/mm3 (0.00-0.68); EOSINOPHILS PERCENT AUTO 3 % (0-6); Hemoglobin 7.8 g/dL (13.5-17.5); IMMATURE GRAN PERCENT AUTO 1 % (0-1); LYMPHOCYTES ABSOLUTE AUTO 1.06 K/mm3 (0.84-5.20); LYMPHOCYTES PERCENT AUTO 13 % (21-46); MONOCYTES ABSOLUTE AUTO 0.93 K/mm3 (0.16-1.47); MONOCYTES PERCENT AUTO 11 % (4-13); Mean Corpuscular HGB 23.2 pg (26.0-34.0); Mean Corpuscular Volume 77 fL (80-100); Mean Platelet Volume 9.6 fL (9.1-12.4); NEUTROPHILS ABSOLUTE AUTO 5.76 K/mm3 (1.96-9.15); NEUTROPHILS PERCENT AUTO 71 % (41-73); NRBC ABSOLUTE 0.03 K/mm3 (0.00-0.02); NRBC Auto 0.4 /100 WBC (0.0-0.2); Platelet Count 181 K/mm3 (150-400); RDW Coefficient Variation 20.3 % (11.7-14.2); RDW Standard Deviation 56.9 fL (35.1-46.3); Red Blood Cell Count 3.36 M/mm3 (4.30-5.90); White Blood Cell Count 8.16 K/mm3 (4.00-11.30)
[2024-08-20 03:53] LABS: Albumin, Blood 3.2 g/dL (3.4-5.0); Bilirubin, Total 1.4 mg/dL (0.1-1.0); Bun/Creatinine Ratio 21.5 (12.0-20.0); Calcium, Blood 8.7 mg/dL (8.5-10.1); Creatinine, Blood 2.05 mg/dL (0.60-1.20); Globulin, Blood 3.2 g/dL (2.2-4.0); Potassium, Blood 4.3 mmol/L (3.5-5.5); Total Protein, Blood 6.4 g/dL (6.4-8.2)
[2024-08-20] MEDS ORDERED: NS 1,000 ML IV SCH (04:35)
[2024-08-20] MEDS ORDERED: Ondansetron HCl 2 MG / ML 2ML Vial IV PRN (05:25)
[2024-08-20] MEDS ORDERED: Acetaminophen 325 MG TABLET PO PRN (05:25)
[2024-08-20] MEDS ORDERED: FLU VACC TS2024-25(6MOS UP)/PF 45 MCG/0.5 ML SYRINGE IM ONE (05:30)
[2024-08-20 05:33] LABS: RETICULOCYTE ABSOLUTE 0.0793 M/mm3 (0.0200-0.1100); RETICULOCYTE COUNT PERCENT 2.38 % (0.50-2.50)
[2024-08-20 05:46] LABS: Percent Saturation 3.4 % (20.0-50.0)
[2024-08-20] MEDS ORDERED: Lactated Ringer's 1,000 ML IV SCH (06:00)
[2024-08-20] MEDS ORDERED: MELA3 PO (07:17)
[2024-08-20] MEDS ORDERED: Iron Dextran 50 MG / ML 2ML Vial IV ONE (07:35)
[2024-08-20] MEDS ORDERED: Sod Ferric Gluc Complx/Sucrose 125 MG in NS 100 ML IV SCH (09:00)
[2024-08-20] MEDS ORDERED: Iron Dextran 975 MG in NS 250 ML IV ONE (09:00)
[2024-08-20] MEDS ORDERED: Tamsulosin HCl 0.4 MG Cap PO SCH (09:00)
[2024-08-20] MEDS ORDERED: Bumetanide 1 MG Tab PO SCH (09:00)
[2024-08-20] MEDS ORDERED: Amiodarone HCl 200 MG Tab PO SCH (09:00)
[2024-08-20] MEDS ORDERED: Cholecalciferol 1000 Unit Tablet (=25MCG) PO SCH (09:00)
[2024-08-20] MEDS ORDERED: Clopidogrel Bisulfate 75 MG Tab PO SCH (09:00)
[2024-08-20] MEDS ORDERED: Empagliflozin 10 MG TAB PO SCH (09:00)
[2024-08-20 09:03] LABS: Hematocrit 25.3 % (37.0-53.0); Hemoglobin 7.6 g/dL (13.5-17.5)
[2024-08-20] MEDS ORDERED: FentaNYL Citrate 50 MCG/ML 2 ML Injection IV PRN (10:35)
[2024-08-20] MEDS ORDERED: levETIRAcetam 500 MG in NS 100 ML IV SCH (11:00)
--- NOTE | 2024-08-20 14:03 | NUR ---
Call for report to ED; RN is going to call me back.
[2024-08-20 14:42] VITALS: BP 96/70
--- NOTE | 2024-08-20 15:07 | NUR ---
pt arrived to PCU 20; He is alert, oriented and pleasantly conversant. C/O pain on left hip, left shoulder when being repositioned, but states when he is not moving his pain is minimal to absent. Photos taken of the left hip bruising, left forearm abrasion and abrasion over the back of his head. and son in law are present in the room at this time. Lung sounds are clear posteriorly on the left, but crackles and diminished on the right. No supplemental oxygen required, spo2 97% on room air. CTA anteriorly. Heart sounds irregularly irregular, atrial fibrillation noted 109-122 bpm by bedside telemetry. B/P is 96/70. Circulation peripherally is adequate. LR infusing at 75 cc/hour. He is sitting up in bed, eating ice chips. Purewick in place for evacuation of urine.
[2024-08-20] MEDS ORDERED: BISA10S PR (16:30)
[2024-08-20] MEDS ORDERED: DULCOLAX400 MG/5 M PO (16:32)
[2024-08-20 16:50] VITALS: BP 76/60
[2024-08-20 16:52] VITALS: BP 89/66
[2024-08-20] MEDS ORDERED: HYDROcodone 5-APAP 325 TAB PO PRN (16:55)
--- NOTE | 2024-08-20 16:56 | NUR ---
Call to Dr. Felton regarding low blood pressure following administration of IV fentanyl for hip pain. New order received. IV fluids are still infusing. Also changed pt from NPO to diet orders. MAP is stable, blood pressure improving.
[2024-08-20 17:10] VITALS: BP 92/78
--- NOTE | 2024-08-20 17:47 | NUR ---
Pt has been resting since arrival from ER. He is sitting up in bed, eating dinner.
[2024-08-20 20:21] VITALS: BP 90/58
[2024-08-20] MEDS ORDERED: Melatonin 3 MG Tab PO SCH (21:00)
[2024-08-20] MEDS ORDERED: Atorvastatin 40 MG Tab PO SCH (21:00)
[2024-08-20] MEDS ORDERED: Famotidine 20 MG Tab PO SCH (21:00)
[2024-08-21] VITALS (20 sets, daily range): BP systolic 84–103; BP diastolic 50–81
[2024-08-21 04:04] LABS: BASOPHILS ABSOLUTE AUTO 0.04 K/mm3 (0.00-0.23); BASOPHILS PERCENT AUTO 1 % (0-2); EOSINOPHILS ABSOLUTE AUTO 0.11 K/mm3 (0.00-0.68); EOSINOPHILS PERCENT AUTO 1 % (0-6); Hematocrit 24.8 % (37.0-53.0); Hemoglobin 7.4 g/dL (13.5-17.5); IMMATURE GRAN ABSOLUTE AUTO 0.07 K/mm3 (0.00-0.10); IMMATURE GRAN PERCENT AUTO 1 % (0-1); LYMPHOCYTES ABSOLUTE AUTO 0.75 K/mm3 (0.84-5.20); LYMPHOCYTES PERCENT AUTO 9 % (21-46); MONOCYTES ABSOLUTE AUTO 0.97 K/mm3 (0.16-1.47); MONOCYTES PERCENT AUTO 12 % (4-13); Mean Corpuscular HGB 22.8 pg (26.0-34.0); Mean Corpuscular HGB Conc 29.8 g/dL (31.5-36.5); Mean Corpuscular Volume 76 fL (80-100); Mean Platelet Volume 9.9 fL (9.1-12.4); NEUTROPHILS ABSOLUTE AUTO 6.33 K/mm3 (1.96-9.15); NEUTROPHILS PERCENT AUTO 77 % (41-73); NRBC ABSOLUTE 0.06 K/mm3 (0.00-0.02); NRBC Auto 0.7 /100 WBC (0.0-0.2); Platelet Count 166 K/mm3 (150-400); RDW Coefficient Variation 20.3 % (11.7-14.2); RDW Standard Deviation 55.7 fL (35.1-46.3); Red Blood Cell Count 3.25 M/mm3 (4.30-5.90); White Blood Cell Count 8.27 K/mm3 (4.00-11.30)
[2024-08-21 04:23] LABS: Albumin/Globulin Ratio 1.1 (0.8-1.8); Bilirubin, Total 1.5 mg/dL (0.1-1.0); Bun/Creatinine Ratio 19.7 (12.0-20.0); Calcium, Blood 8.3 mg/dL (8.5-10.1); Creatinine, Blood 2.49 mg/dL (0.60-1.20); Globulin, Blood 2.8 g/dL (2.2-4.0); Potassium, Blood 4.6 mmol/L (3.5-5.5); Total Protein, Blood 5.8 g/dL (6.4-8.2)
--- NOTE | 2024-08-21 05:22 | NUR ---
SHIFT SUMMARY. SHIFT HAS BEEN UNREMARKABLE, NO ACUTE CHANGES. PT REMAINS ORIENTED, PLEASANT, COOPERATIVE, ABLE TO MAKE NEEDS KNOWN. HAS BEEN ABLE TO REST COMFORTABLY THROUGHOUT MOST OF SHIFT. PAIN HAS BEEN MOSTLY MANAGED VIA REPOSITIONING. MEDICATED ONCE WITH NORCO FOR BREAKTHROUGH PAIN AFTER USING BED ALONSO FOR BOWEL MOVEMENT. BLOOD PRESSURE HAS BEEN SOFT THROUGHOUT SHIFT, MAP HAS REMAINED >65. SPOKE WITH DR. HERNANDEZ. KIDNEY FUNCTION APPEARS TO HAVE DECREASED SOMEWHAT THIS MORNING. INQUIRED ABOUT GENTLE HYDRATION WHILE JUGGLING HEART FAILURE WITH REDUCED EJECTION FRACTION. PT FEELS WELL, NO ORDERS AT THIS TIME. WILL CONTINUE TO MONITOR BLOOD PRESSURE FOR CONTINUED DECREASE. OTHERWISE VITALS STABLE, CONTINUES TO SATURATE WELL ON ROOM AIR. BED LOCKED IN LOWEST POSITION. CALL LIGHT LEFT WITHIN REACH. CONTINUING TO MONITOR.
[2024-08-21] MEDS ORDERED: Bumetanide 1 MG Tab PO SCH (09:00)
[2024-08-21] MEDS ORDERED: Midodrine 5 MG Tab PO SCH (09:00)
--- NOTE | 2024-08-21 10:47 | NUR ---
AM NOTE: PATIENT ALERT AND ORIENTED X4. HARD OF HEARING. COMPLAINS OF LEFT HIP PAIN AND LEFT RIB PAIN THIS AM. MEDICATED PER EMAR WITH GOOD RELIEF AND PATIENT ABLE TO REST POST PAIN MEDICATION ADMINISTRATION. MOVING ALL EXTREMITIES, HELPING STAFF ROLL IN BED, Q2 TURNING. DENIES NUMBNESS/TINGLING. SCD'S IN PLACE. ON ROOM AIR SATING ABOVE 95%. DENIES SOB/COUGH. PAINFUL WITH DEEP INSPIRATION DUE TO LEFT RIB SORENESS FROM [facility] PRIOR TO ADMISSION. EVEN AND UNLABORED RESPIRATIONS. TELE SHOWING AFIB WITH HR 80'S. SBP 100'S. DENIES CHEST PAIN/PRESSURE/PALPITATIONS. PPP. NO EDEMA NOTED. IV KEPPRA INFUSED THIS AM PER EMAR. IV'S NOW SALINE LOCKED. BRUISING TO LEFT HIP. ABRASION TO LEFT FA, AND HEAD. SEE CHART PHOTOS. MILD ABDOMINAL TENDERNESS UPON PALPATION. TOLERATING PO DIET. DENIES NAUSEA. MALE PW IN PLACE. URINE YELLOW. ATTENDS IN PLACE. NEEDING TO OBTAIN STOOL SMAPLE. PATIENT HAS NOT HAD BOWEL MOVEMENT YET THIS SHIFT. PATIENT SPOKE WITH DAUGHTER ON PHONE THIS AM. RESTING IN BED AT THIS TIME, DENIES NEEDS. CALL LIGHT IN REACH.
--- NOTE | 2024-08-21 12:26 | NUR ---
DAUGHTER AND AT BEDSIDE. PATIENT VERY SLEEPY THIS AFTERNOON. VITAL SIGNS STABLE. PLAN FOR CT OF [facility]EL[facility] THIS AFTERNOON.
--- NOTE | 2024-08-21 13:10 | NUR ---
THIS RN PLACED PAGE TO STUCCO APPLICATOR TO SEE WHEN EEG WILL BE COMPLETED, WAITING FOR CALL BACK.
--- NOTE | 2024-08-21 13:43 | NUR ---
PATIENT TO CT AT THIS TIME
[2024-08-21] MEDS ORDERED: Simethicone 80 MG Chew PO PRN (13:50)
--- NOTE | 2024-08-21 13:50 | NUR ---
CALL PLACED TO DR. COLES TO UPDATE ON PATIENT AND FAMILY REPORTING PATIENT HAS HISTORY OF BEING VERY GASING AND REQUESTING SIMETHICONE WELL PATIENT BEING MORE SLEEPY THIS AFTERNOON AND COMPLAINING OF LEFT RIB PAIN THIS AM. NO NEW ORDERS FOR THIS RN TO PLACE.
--- NOTE | 2024-08-21 14:11 | NUR ---
PATIENT BACK FROM CT, CHEST XRAY COMPLETED WHILE PATIENT WAS DOWN FOR CT.
--- NOTE | 2024-08-21 18:26 | NUR ---
SEE PREVIOUS NOTES FOR UPDATES THROUGHOUT THE DAY. PATIENT REMAINS LETHARGIC/SLEEPY. CONTINUES TO WAKE TO VOICE/TOUCH. OPENS EYE BRIEFLY AND WILL NOD OR ANSWER WITH ONE - TWO WORDS OR SAY "IM TRYING TO SLEEP". PATIENT EATING DINNER AT THIS TIME WITH DAUGHTERS ASSISTANCE. REMAINS IN AFIB WITH HR 80'S. SOFT BLOOD PRESSURES SYSTOLIC 80-90'S WITH MAPS 65 AND ABOVE. ON ROOM AIR SATING ABOVE 95%. Q2 TURNING AND NEEDED. SCD'S IN PLACE. CALL LIGHT IN REACH.
[2024-08-22] VITALS (11 sets, daily range): BP systolic 87–105; BP diastolic 52–70
[2024-08-22 04:56] LABS: Hemoglobin 7.8 g/dL (13.5-17.5); Mean Corpuscular HGB 23.1 pg (26.0-34.0); Mean Corpuscular Volume 77 fL (80-100); Mean Platelet Volume 9.2 fL (9.1-12.4); NRBC ABSOLUTE 0.03 K/mm3 (0.00-0.02); NRBC Auto 0.3 /100 WBC (0.0-0.2); Platelet Count 175 K/mm3 (150-400); RDW Standard Deviation 56.9 fL (35.1-46.3); Red Blood Cell Count 3.38 M/mm3 (4.30-5.90); White Blood Cell Count 8.84 K/mm3 (4.00-11.30)
[2024-08-22 05:22] LABS: Bun/Creatinine Ratio 21.3 (12.0-20.0); Calcium, Blood 8.7 mg/dL (8.5-10.1); Creatinine, Blood 2.54 mg/dL (0.60-1.20); Potassium, Blood 3.7 mmol/L (3.5-5.5)
--- NOTE | 2024-08-22 10:08 | NUR ---
AM NOTE: PATIENT WAKES TO THIS RN'S VOICE. PATIENT REMEMBERS THIS RN BY NAME. ABLE TO ANSWER WHO HE IS, WHERE HE IS, WHY HE IS HERE AND GIVES ME THE MONTH BUT NOT EXACT DATE. DENIES PAINS THIS AM, BUT STATES HIS LEFT HIP IS PAINFUL WHEN MOVED. PERRLA, WEARING GLASSES. DENIES N/T. MOVING ALL EXTREMITIES IN BED IND. ON ROOM AIR SATING ABOVE 92%. EVEN AND UNLABORED RESPIRATIONS. DENIES SOB/COUGH. LUNG SOUNDS CLEAR AND DIM IN BASES. TELE SHOWING AFIB WITH HR 80-100'S. DENIES CHEST PAIN/PRESSURE/PALPITATIONS. SCD'S IN PLACE. SBP 90-100'S. IV KEPPRA INFUSED AND THEN IV SALINE LOCKED. SCATTERED BRUISING. BOWEL TONES PRESENT. FEEDING SELF BREAKFAST THIS AM. DENIES ABDOMINAL PAIN/NAUSEA. ABDOMIN DISTENDED, PATIENT STATES THIS IS HIS NORMAL. PASSING GAS, NO BOWEL MOVEMENT THUS FAR. ORAL CARE COMPLETED THIS AM. CONSULT PLACED TO DR. Nichols BY THIS RN PER DR. COLES ORDERS. DR. COLES IN FOR PROVIDER ROUNDING THIS AM, THIS RN AT BEDSIDE. PLAN TO HOLD AM BUMEX UNTIL DR. Nichols SEES PATIENT, ORDERS FOR PT/OT WITH WEIGHT BEARING TOLERATED AND TO CALL DR. COLES WHEN FAMILY ARRIVES TO ROOM. BED BATH BEING GIVEN AT THIS TIME. SEE CHART FOR PHOTOS OF BRUISING AND ABRASIONS FROM [facility] AT [facility] PRIOR TO ADMISSION. THIS RN SPOKE WITH DAUGHTER ISRRAEL ON PHONE THIS AM AND PROVIDED UPDATE.
--- NOTE | 2024-08-22 13:53 | NUR ---
PHYSICAL THERAPY IN ROOM AT THIS TIME.
--- NOTE | 2024-08-22 18:20 | NUR ---
SHIFT SUMMARY: PATIENT MORE SLEEPY THROUGHOUT THE AFTERNOON AND THIS EVENING. DR. Nichols IN FOR PROVIDER CONSULT. DAUGHTER AND AT BEDSIDE. PATIENT REMAINS IN AFIB WITH HR 70-80'S. ON ROOM AIR. CONTINUES TO HAVE SOFT BLOOD PRESSURE. LEFT HIP PAIN MANAGED WITH TYLENOL. EATING SMALL AMOUNTS AT EACH MEAL. USING URINAL WITH ASSISTANCE. CALL LIGHT IN REACH.
[2024-08-23] VITALS (10 sets, daily range): BP systolic 86–106; BP diastolic 49–67
[2024-08-23 04:22] LABS: Hematocrit 27.2 % (37.0-53.0); Hemoglobin 8.1 g/dL (13.5-17.5); Mean Corpuscular HGB 23.1 pg (26.0-34.0); Mean Corpuscular HGB Conc 29.8 g/dL (31.5-36.5); Mean Corpuscular Volume 78 fL (80-100); Mean Platelet Volume 9.4 fL (9.1-12.4); NRBC Auto 1.1 /100 WBC (0.0-0.2); Platelet Count 175 K/mm3 (150-400); RDW Coefficient Variation 21.2 % (11.7-14.2); RDW Standard Deviation 55.4 fL (35.1-46.3); White Blood Cell Count 8.98 K/mm3 (4.00-11.30)
[2024-08-23 05:02] LABS: Uric Acid, Blood 8.7 mg/dL (3.5-7.2)
[2024-08-23 05:03] LABS: Albumin, Blood 2.9 g/dL (3.4-5.0); Anion Gap 14 mmol/L (3-11); Blood Urea Nitrogen 52 mg/dL (8-24); Bun/Creatinine Ratio 22.6 (12.0-20.0); CO2, Blood 20 mmol/L (21-32); Calcium, Blood 8.8 mg/dL (8.5-10.1); Chloride, Blood 104 mmol/L (98-108); Glomerular Filtration Rate 28 (60-); Glucose, Blood 110 mg/dL (70-99); Phosphorus, Blood 3.6 mg/dL (2.5-4.9); Potassium, Blood 3.8 mmol/L (3.5-5.5); Sodium, Blood 134 mmol/L (136-145)
[2024-08-23] MEDS ORDERED: Ferrous Sulfate 325 MG Tab PO SCH (08:30)
[2024-08-23] MEDS ORDERED: Bumetanide 0.25 MG/ML 4ML ViaL IV SCH (09:00)
[2024-08-23] MEDS ORDERED: LevETIRAcetam 500 MG Tab PO SCH (09:00)
--- NOTE | 2024-08-23 13:13 | NUR ---
PATIENT WAKES TO THIS RN VOICE THIS AM. ABLE TO TELL ME WHO HE IS, WHERE HE IS AND ABOUT HIS FAMILY. INTERMIT CONFUSION ON WHY HE IS HERE AND WHEN WAKING UP FROM NAPS. ABLE TO REORIENT. PERRLA, WEARING GLASSES. ABLE TO MOVE ALL EXTREMITIES AND FOLLOWING DIRECTIONS. HARD OF HEARING. LEFT HIP PAIN FROM RECENT [facility] PRIOR TO ADMISSION. PHYSICAL THERAPY ORDERS IN PLACE. TELE SHOWING AFIB WITH HR 80-100'S. DENIES CHEST PAIN/PRESSURE/PALPITATIONS. AICD. SBP 80-100'S. INTERMIT USE OF SCD'S, PATIENT REFUSING AT TIMES. IV SALINE LOCKED. ON ROOM AIR SATING ABOVE 95%. DENIES SOB/COUGH. LUNGS SOUNDS CLEAR AND DIM IN BASES. EVEN AND UNLABORED RESPIRATIONS. BOWEL TONES PRESENT. NO BOWEL MOVEMENT THIS FAR. TOLERATING DIET. PASSING GAS. DENIES ABDOMINAL PAIN/NAUSEA. DISTENDED ABDOMIN PATIENT AND FAMILY STATE IS HIS BASELINE. ATTENDS IN PLACE. USING URINAL TO VOID WITH ASSISTANCE. SKIN OVERALL PALE WITH FRAGILE SKIN. SEE CHARTED SKIN ASSESSMENT AND PHOTOS IN CHART. Q2 TURNING AND NEEDED. SON IN-[place] AT BEDSIDE AND UPDATED BY THIS RN. THIS RN SPOKE WITH DAUGHTER ISRRAEL ON PHONE THIS AM. CALL LIGHT AND BED ALARM IN PLACE.
--- NOTE | 2024-08-23 13:18 | NUR ---
THIS RN PLACED CALL AND PAGE TO EEG, WAITING TO HEAR BACK.
--- NOTE | 2024-08-23 14:38 | NUR ---
Spiritual care visit conducted. Patient is moaning, "Help me help me," when I walk into his room. He tells me that he needs help but can't articulte what he needed help with. He tells me that he lost his mind and told his doctor that he was a liar and that he was seeing things. He states that he is afraid that he is losing his mind. As we talk he seemingly becomes more clear. He shares about his life, his family and his cycle of problem, hospital, rehab, problem, hospital, rehab. He says he still wants to stay in the fight and he is very welcoming of a prayer being said on his behalf. I gladly supply a prayer. Patient voiced his gratitude and showed signs of an elevated mood.
--- NOTE | 2024-08-23 15:53 | NUR ---
DR. Nichols BY, THIS RN AT BEDSIDE FOR PROVIDER ROUNDING. NO NEW ORDERS FOR THIS RN TO PLACE. PATIENT WAKES TO VOICE. FAMILY AT BEDSIDE. VITAL SIGNS STABLE. DENIES PAIN. THIS RN SPOKE WITH NURSING EXPORT SPECIALIST TO INQUIRE ABOUT EEG. NURSING EXPORT SPECIALIST PLACED CALL AND LEFT MESSAGE, WAITING TO HEAR BACK.
--- NOTE | 2024-08-23 18:43 | NUR ---
SHIFT SUMMARY: NO ACUTE CHANGES, SEE PREVIOUS NOTES FOR UPDATES. PATIENT SITTING UP IN BED EATING DINNER WITH FAMILY. DENIES NEED FOR PAIN MEDICATION. USING URINAL TO VOID. TELE CONTINUES TO SHOW AFIB. ON ROOM AIR. VITAL SIGNS STABLE. TOOK HOME PATIENTS CELLPHONE. PLAN FOR PT IN AM. CALL LIGHT IN REACH. DENIES NEEDS AT THIS TIME.
--- NOTE | 2024-08-23 21:31 | NUR ---
ASSUMPTION OF CARE ASSUMED CARE OF PATIENT AT 1900, BEDSIDE SHIFT REPORT RECEIVED FROM MIKAELA RN. PT RESTING IN BED, SLEEPING BUT AROUSABLE. PT ORIENTED TO SELF, ABLE TO STATE HIS NAME AND , UNSURE OF LOCATION AND YEAR. PT TALKS WITH HIS EYES CLOSED, OPENS WHEN ASKED. PT FOLLOWS DIRECTION WHEN PROMPTED, MOVES EXTREMITIES EQUALLY BILATERALLY AND IS ABLE TO MAKE HIS NEEDS KNOWN. PT COMPLAINING OF PAIN IN HIS BACK/GENERALIZED, MEDICATED PER EMAR. HR 80'S AFIB, MAP >65. PT ON RA, OXYGEN SATURATION >95%. ABDOMEN SOFT, BOWEL TONES ACTIVE THROUGHOUT. PT USES URINAL WITH ASSISTANCE TO VOID. PIV IN PLACE TO R WRIST AND LFA SL. BED IN LOWEST POSITION, BED ALARM ON, CALL LIGHT WITHIN REACH, CARE CONTINUES.
[2024-08-24] VITALS (9 sets, daily range): BP systolic 90–104; BP diastolic 49–70
[2024-08-24 04:59] LABS: Albumin, Blood 2.9 g/dL (3.4-5.0); Anion Gap 12 mmol/L (3-11); Blood Urea Nitrogen 48 mg/dL (8-24); Bun/Creatinine Ratio 22.6 (12.0-20.0); CO2, Blood 25 mmol/L (21-32); Calcium, Blood 8.4 mg/dL (8.5-10.1); Chloride, Blood 103 mmol/L (98-108); Creatinine, Blood 2.12 mg/dL (0.60-1.20); Glomerular Filtration Rate 31 (60-); Glucose, Blood 101 mg/dL (70-99); Phosphorus, Blood 3.3 mg/dL (2.5-4.9); Potassium, Blood 3.6 mmol/L (3.5-5.5); Sodium, Blood 136 mmol/L (136-145)
--- NOTE | 2024-08-24 06:04 | NUR ---
SHIFT SUMMARY PT CONINTUES TO REST IN BED, SLEEPING BUT AROUABLE. PT ORIENTED TO SELF, ABLE TO STATE NAME AND . PT CONFUSED, ASKS THE SAME QUESTIONS MULTIPLE TIMES. PT TALKS WITH EYES CLOSED, OPENS WHEN ASKED. PT MOVES EXTREMITIES EQUALLY BILATERALLY, FOLLOWS DIRECTION WHEN PROMPTED. HR 80-90'S AFIB. MAP >65. PT ON RA, OXYGEN SATURATION >95%. ABDOMEN SOFT, BOWEL TONES ACTIVE THROUGHOUT. PT USES URINAL WITH ASSISTANCE TO VOID, ATTENDS IN PLACE. PIV IN PLACE TO LEFT WRIST SL. BED IN LOWEST POSITION, CALL LIGHT WITHIN REACH, CARE CONTINUES.
--- NOTE | 2024-08-24 08:00 | NUR ---
am note this rn assumed care at 0700. spo2 >90% on room air. tele afib 80s. blood pressure soft. patient alert but keeps eyes shut when talking. patient is asking for his by name, ethan, and able to tell this rn his name and birthday. patient denies pain, chest pain/pressure or shortness of breath. see shift assessment for further detials. md tejada in the room and discussed the plan with this rn and to continue diuersing patient.
[2024-08-24] MEDS ORDERED: Amiodarone HCl 200 MG Tab PO SCH (09:00)
--- NOTE | 2024-08-24 10:10 | NUR ---
update this rn attempting to give morning medications. patient unable to tell what is real and what is a dream. patient saying name is mel, and patient daughter says she used to be called that. patient unable to recall all of childrens name at this time. patient not telling this rn the his name or date of , says he is "ernesto mujica", and abdi, daughter, at bedside, said thats not him and asking him if he knows who "ernesto mujica" is. patient said it is his friend and old boss. patient stating "im trying to get out of this dream" patient opened eyes and said daughters name. and this rn introduced himself and patient closed his eyes again. patient saying "i tell the truth" and wanting to the truth. patient mentation is waxing and weaning currently. daughter called the and hoping to reassess once is here. patient refusing to take medications stating it is is a dream
--- NOTE | 2024-08-24 13:39 | NUR ---
eeg transport technician in room doing eeg on the patient
[2024-08-24] MEDS ORDERED: Polyethylene Glycol 3350 17 gm PO PRN (17:50)
--- NOTE | 2024-08-24 18:12 | NUR ---
shift summary md ott in to see patient this evening and discussed started a new medication, provigil, for patient to increase alterness. due to this medication midodrine has been discountinted and holding bumex this evening. patient mentation has wax and wanes throughout the shift, moments of clarity and moments of confusion. family has been at bedside majority of the day besides when eeg being done. see previous notes. plan remains up to date
[2024-08-24] MEDS ORDERED: Docusate Sodium 100 MG Cap PO SCH (21:00)
[2024-08-25 00:13] VITALS: BP 95/61
[2024-08-25 03:52] VITALS: BP 91/72
[2024-08-25 08:14] VITALS: BP 96/62
[2024-08-25] MEDS ORDERED: Modafinil 200 MG Tab PO SCH (09:00)
[2024-08-25 10:07] LABS: Albumin, Blood 2.7 g/dL (3.4-5.0); Anion Gap 11 mmol/L (3-11); Blood Urea Nitrogen 42 mg/dL (8-24); Bun/Creatinine Ratio 24.1 (12.0-20.0); CO2, Blood 26 mmol/L (21-32); Calcium, Blood 8.4 mg/dL (8.5-10.1); Chloride, Blood 101 mmol/L (98-108); Creatinine, Blood 1.74 mg/dL (0.60-1.20); Glomerular Filtration Rate 39 (60-); Glucose, Blood 114 mg/dL (70-99); Phosphorus, Blood 3.4 mg/dL (2.5-4.9); Potassium, Blood 3.8 mmol/L (3.5-5.5); Sodium, Blood 134 mmol/L (136-145)
[2024-08-25 12:29] VITALS: BP 103/65
[2024-08-25 17:17] VITALS: BP 90/59
--- NOTE | 2024-08-25 18:31 | NUR ---
SHIFT SUMMARY Pt much more alert and oriented today. Very plesant with cares. Worked with PT and OT. Transitioned to oral diuretic tonight. Possible discharge back to rehab tomorrow. Family updated on plan of care.
[2024-08-25] MEDS ORDERED: Torsemide 20 MG TAB PO SCH (19:00)
[2024-08-25 19:59] VITALS: BP 99/54
[2024-08-25] MEDS ORDERED: Famotidine 20 MG Tab PO SCH (21:00)
[2024-08-26] VITALS (11 sets, daily range): BP systolic 71–103; BP diastolic 49–70
[2024-08-26 04:17] LABS: Hematocrit 28.4 % (37.0-53.0); Hemoglobin 8.5 g/dL (13.5-17.5); Mean Corpuscular HGB 23.7 pg (26.0-34.0); Mean Corpuscular HGB Conc 29.9 g/dL (31.5-36.5); Mean Corpuscular Volume 79 fL (80-100); Mean Platelet Volume 9.1 fL (9.1-12.4); Platelet Count 146 K/mm3 (150-400); RDW Coefficient Variation 25.7 % (11.7-14.2); RDW Standard Deviation 59.1 fL (35.1-46.3); Red Blood Cell Count 3.58 M/mm3 (4.30-5.90); White Blood Cell Count 7.04 K/mm3 (4.00-11.30)
[2024-08-26 04:46] LABS: Albumin, Blood 2.8 g/dL (3.4-5.0); Anion Gap 12 mmol/L (3-11); Blood Urea Nitrogen 42 mg/dL (8-24); Bun/Creatinine Ratio 21.5 (12.0-20.0); CO2, Blood 25 mmol/L (21-32); Calcium, Blood 8.4 mg/dL (8.5-10.1); Chloride, Blood 100 mmol/L (98-108); Creatinine, Blood 1.95 mg/dL (0.60-1.20); Glomerular Filtration Rate 34 (60-); Glucose, Blood 90 mg/dL (70-99); Potassium, Blood 3.3 mmol/L (3.5-5.5); Sodium, Blood 134 mmol/L (136-145)
[2024-08-26] MEDS ORDERED: Amiodarone HCl 50 MG / ML 3 ML Amp IV ONE (04:49)
[2024-08-26] MEDS ORDERED: Modafinil 200 MG Tab PO SCH (09:00)
[2024-08-26] MEDS ORDERED: NS 250 ML IV SCH (11:40)
[2024-08-26] MEDS ORDERED: Midodrine 5 MG Tab PO SCH (13:00)
--- NOTE | 2024-08-26 16:54 | NUR ---
SHIFT SUMMARY: PT ALERT AND ORIENTED X2-3. ABLE TO TELL THIS RN NAME, , AND LOCATION. UNABLE TO PROVIDE DATE/YEAR. CONFUSED AT TIMES. BED ALARM ON FOR SAFETY. HR STABLE, AFEBRILE, SPO2 >96% ON ROOM AIR. RESPIRATIONS EVEN AND UNLABORED. ABD MILDLY DISTENDED, PT STATES BASELINE, BOWEL SOUNDS +. PULSES STRONG AND EQUAL THROUGHOUT. BLOOD PRESSURES SOFT THROUGHOUT THIS SHIFT, MAP 60-65. MD NOTIFIED. 250ML BOLUS AND MIDODRINE ORDERED, PT TOLERATED WELL. MAP REMAINS 65. PT FAMILY AT BEDSIDE THIS AFTERNOON, UPDATED ON PT PLAN OF CARE. BED IN LOW, CALL LIGHT IN REACH, WILL REPORT TO ONCOMING RN.
[2024-08-26] MEDS ORDERED: Potassium Chloride 20 MEQ TabCR PO ONE (19:25)
[2024-08-26] MEDS ORDERED: NS 1,000 ML IV ONE (20:00)
[2024-08-26] MEDS ORDERED: Digoxin 0.25 MG/ML 2ML Amp ONE (20:18)
[2024-08-26] MEDS ORDERED: Potassium Chl 20MEQ/Water100ML 100 ML IV SCH (20:25)
[2024-08-26] MEDS ORDERED: Digoxin 0.25 MG/ML 2ML Amp IV ONE (20:25)
[2024-08-26] MEDS ORDERED: LORazepam 2 MG/ML 1ML Injection ONE (20:58)
[2024-08-26] MEDS ORDERED: FentaNYL Citrate 50 MCG/ML 2 ML Injection ONE (20:59)
[2024-08-26] MEDS ORDERED: LORazepam 2 MG/ML 1ML Injection IV ONE (21:05)
[2024-08-26] MEDS ORDERED: FentaNYL Citrate 50 MCG/ML 2 ML Injection IV ONE (21:05)
[2024-08-26] MEDS ORDERED: Phenylephrine HCl in 0.9% NaCl 250 ML IV SCH (21:10)
[2024-08-26] MEDS ORDERED: Magnesium Sulf 2 GM/Water 50ML 50 ML IV ONE (21:10)
--- NOTE | 2024-08-26 21:18 | NUR ---
UPDATE INITAL ASSESSMENT/ASSUMPTION OF CARE 1914: ALERT, ORIENTED x3-4, SPEAKING SOFTLY. BP HYPOTENSIVE. TELE READING AFIB 80s. ON RA WITH SPO2 >90%. RESTING COMFORTABLY IN BED, REQUESTING TO VOID USING URINAL, 200mls OUT. BRUISING NOTED TO LEFT HIP. HAS CALL LIGHT IN REACH. 1929: HOOP PUNCH AND COILER OPERATOR HELPER CALLED THIS RN TO MONITOR. NOTED PATIENT HAD RHYTHM CHANGE. EKG PERFORMED. HOSPITALIST FLAVIA CALLED TO BEDSIDE. ALERT, CONTINUES TO SPEAK SOFTLY. PATIENT HR 130-140s, DENIES CHEST PAIN AT THIS TIME. BP CONTINUES TO BE HYPOTENSIVE. DISTRIBUTION WAREHOUSE MANAGER AT BEDSIDE WITH THIS RN. TELEPHONE ORDER FOR FLUIDS WIDE OPEN. 1999: MD TO BEDSIDE. CRASH CART IN ROOM, PATIENT ATTATCHED TO ZOLL. HR 140s AT THIS TIME. PATIENT ANXIOUS BUT RESPONSIVE. VERBAL ORDERS FOR AMIO BOLUS AND AMIO GTT. ICU DISTRIBUTION WAREHOUSE MANAGER IN ROOM WITH THIS RN AND PCU DISTRIBUTION WAREHOUSE MANAGER. 2011: AMIO PUSH GIVEN OVER 10 MINUTES. FLUIDS STOPPED AT THIS TIME. 2019: HOSPITALIST ON THE PHONE WITH CARDIOLOGY. DISTRIBUTION WAREHOUSE MANAGER ATTEMPTING TO PHONE [employer] REP. 2026: NO CHANGE IN RHYTHN. NO CHANGE IN VITALS OR MENTATION. 0.25 DIG IV ORDERED AND GIVEN. 2038: NO CHANGES TO PATIENT. PATIENT TO BE TRANSFERRED TO ICU 7. BEDSIDE REPORT TO BE GIVEN TO SALES ORDER CLERK. PATIENT TRANSFERRED TO PATIENT WITH ALL BELONGINGS AND CHART.
[2024-08-26 21:19] LABS: BASOPHILS ABSOLUTE AUTO 0.04 K/mm3 (0.00-0.23); BASOPHILS PERCENT AUTO 1 % (0-2); EOSINOPHILS ABSOLUTE AUTO 0.18 K/mm3 (0.00-0.68); EOSINOPHILS PERCENT AUTO 2 % (0-6); Hematocrit 30.7 % (37.0-53.0); Hemoglobin 9.2 g/dL (13.5-17.5); IMMATURE GRAN ABSOLUTE AUTO 0.11 K/mm3 (0.00-0.10); IMMATURE GRAN PERCENT AUTO 1 % (0-1); LYMPHOCYTES ABSOLUTE AUTO 0.84 K/mm3 (0.84-5.20); LYMPHOCYTES PERCENT AUTO 10 % (21-46); MONOCYTES ABSOLUTE AUTO 0.69 K/mm3 (0.16-1.47); MONOCYTES PERCENT AUTO 9 % (4-13); Mean Corpuscular Volume 80 fL (80-100); Mean Platelet Volume 9.3 fL (9.1-12.4); NEUTROPHILS ABSOLUTE AUTO 6.27 K/mm3 (1.96-9.15); NEUTROPHILS PERCENT AUTO 77 % (41-73); NRBC ABSOLUTE 0.02 K/mm3 (0.00-0.02); NRBC Auto 0.2 /100 WBC (0.0-0.2); Platelet Count 175 K/mm3 (150-400); RDW Coefficient Variation 26.3 % (11.7-14.2); RDW Standard Deviation 64.4 fL (35.1-46.3); Red Blood Cell Count 3.84 M/mm3 (4.30-5.90); White Blood Cell Count 8.13 K/mm3 (4.00-11.30)
[2024-08-26 21:55] LABS: Magnesium, Blood 2.1 mg/dL (1.6-2.4)
[2024-08-26 21:56] LABS: Albumin, Blood 2.9 g/dL (3.4-5.0); Bun/Creatinine Ratio 22.1 (12.0-20.0); Calcium, Blood 8.2 mg/dL (8.5-10.1); Creatinine, Blood 2.04 mg/dL (0.60-1.20); Globulin, Blood 2.8 g/dL (2.2-4.0); Potassium, Blood 3.8 mmol/L (3.5-5.5); Total Protein, Blood 5.7 g/dL (6.4-8.2)
[2024-08-26] MEDS ORDERED: FentaNYL Citrate 50 MCG/ML 2 ML Injection IV PRN (23:40)
[2024-08-27] VITALS (29 sets, daily range): BP systolic 89–113; BP diastolic 41–84
[2024-08-27 00:07] LABS: Source, Urine Foley catheter
[2024-08-27 00:10] LABS: Bilirubin, Urine Neg (Neg); Blood, Urine Neg (Neg); Glucose Qualitative, Urine 4+ (Neg); Ketones, Urine Neg (Neg); Leukocyte Esterase, Urine Neg (Neg); Nitrite, Urine Neg (Neg); Protein, Urine 1+ (Neg); Specific Gravity, Urine 1.015 (1.003-1.022); Urobilinogen, Urine NORM (Normal)
[2024-08-27] MEDS ORDERED: Furosemide 10 MG/ML 4ML Vial IV ONE (00:15)
[2024-08-27 00:24] LABS: Appearance, Urine Clear (Clear); Color, Urine Yellow (P-Yellow)
--- NOTE | 2024-08-27 01:03 | NUR ---
THIS RN ASSUMED CARE OF PT AROUND 2100. PT CAME TO THE ICU WITH MARCI MATTA HAND NAILER AT BEDSIDE. PT WAS IN WIDE COMPLEX TACHYCARDIA/HYPOTENSION AND A-FLUTTER/SVT ABERRANT CONDUCTION PER PROVIDER. PT HAS GOTTEN 150MG BOLUS OF AMNIO AND IV DIG, PROVIDER WANTED TO DO SYNCHRONIZED ELECTRICAL CARDIOVERSION. 1MG OF ATIVAN AND 50MCG OF FENT WAS GIVEN FOR SEDATION, SHOCK ADMINISTERED PER PROVIDER AND PT WENT INTO A-FIB 70-80s AND BLOOD PRESSURE WAS 83/68. PT HAD A VERY DISTENDED ABDOMEN, STAT CT WAS OBTAINED, ALONG WITH A CHEST X-RAY. PT WAS ALERT AND ORIENTED X2, TALKING AND COULD SAY HIS NAME AND PLACE BUT CONFUSED ABOUT THE SITUATION. PHENY WAS STARTED AT 2148 AT 20 AND TURNED OFF AT 2230. WAS NOTIFIED AND UPDATED FAMILY WHO IS PRESENT AT BEDSIDE. PT IS ON ROOM AIR SATTING >95%. THIS RN PLACED SMITH FOR INCONTINENCE AND NG TUBE FOR ABDOMINAL DISTENSION. PT WAS STILL ABLE TO FOLLOW COMMANDS AND IS REDIRECTABLE. PT HAS MAG AND POTASSIUM RUNNING IV. NO OTHER INTERVENTIONS AT THIS TIME. DR. MORALES HAS BEEN UPDATED AND IS FOLLOWING. PLAN OF CARE CONTINUED.
[2024-08-27 04:06] LABS: Anion Gap 11 mmol/L (3-11); Blood Urea Nitrogen 43 mg/dL (8-24); Bun/Creatinine Ratio 22.1 (12.0-20.0); CO2, Blood 26 mmol/L (21-32); Calcium, Blood 8.6 mg/dL (8.5-10.1); Chloride, Blood 103 mmol/L (98-108); Creatinine, Blood 1.95 mg/dL (0.60-1.20); Glomerular Filtration Rate 34 (60-); Glucose, Blood 112 mg/dL (70-99); Magnesium, Blood 2.6 mg/dL (1.6-2.4); Phosphorus, Blood 4.2 mg/dL (2.5-4.9); Potassium, Blood 3.5 mmol/L (3.5-5.5); Sodium, Blood 136 mmol/L (136-145)
--- NOTE | 2024-08-27 05:06 | NUR ---
PT SUMMARY PT STILL REMAINS IN A-FIB 70-80s, BLOOD PRESSURE STABLE AT 109/54, PT IS MORE AWAKE AND FOLLOWING COMMANDS. PT IS VERY REDIRECTABLE, FAMILY IS STILL AT BEDSIDE. NO OTHER INTERVENTIONS AT THIS TIME. PLAN OF CARE CONTINUED.
[2024-08-27] MEDS ORDERED: Potassium Chloride 20 MEQ TabCR PO ONE (10:55)
--- NOTE | 2024-08-27 18:34 | NUR ---
SHIFT SUMMARY: PT HAS BEEN FREQUENTLY DISORIENTED THROUGHOUT SHIFT, BUT REDIRECTABLE AND COOPERATIVE. HE IS TAKING ORAL MEDICATIONS FINE WITH APPLESAUCE BUT HAS SOME TROUBLE SWALLOWING WATER WITHOUT COUGHING. HIS RATE HAS REMAINED <100 AND MAP >60. HIS BREATHING IS UNLABORED AND HE HAS BEEN ON ROOM AIR. INTERMITTENT PAIN TO HIS LEFT LEG AND HIP, MANAGEABLE WITH MEDICATION AND REPOSITIONING. HIS AND DAUGHTER HAVE BEEN AT BEDSIDE AT THE START AND END OF SHIFT.
--- NOTE | 2024-08-27 22:11 | NUR ---
ASSUMPTION OF CARE/ASSESSMENT: ASSUMED CARE OF PT AT 1900; REPORT RECIEVED FROM ZA GONZALEZ. PT SLEEPING IN BED, AROUSABLE TO VERBAL STIMULI. PT A&O X 2; KNOWS HIS NAME/, THAT HE IS IN [place], OR BUT CANNOT TELL ME THE CORRECT DATE OR WHY HE IS AT THE HOSPITAL. PT MUMMBLES INCOHERRENTLY AT TIMES BUT IS FOLLOWING SIMPLE DIRECTIONS AND IS COOPERATIVE WITH CARE. CURRENTLY AFIB ON MONITOR WITH HR 70-80'S, SBP STABLE AND DENIES CHEST PAIN AT THIS TIME. PT ON RA, SPO2 96<, AND DENIES SOB. TOLERATING ORAL CARE, ABLE TO COUGH AND CLEAR SECRETIONS; SMALL SIPS OF WATER AT BEDSIDE. CONDOM CATH PATENT AND DRAINING YELLOW URINE TO GRAVITY; GOOD URINE OUTPUT NOTED. BED LOWERED, CALL LIGHT IN REACH.
[2024-08-28] VITALS (7 sets, daily range): BP systolic 101–122; BP diastolic 47–65
[2024-08-28 03:57] LABS: Albumin, Blood 2.8 g/dL (3.4-5.0); Anion Gap 11 mmol/L (3-11); Blood Urea Nitrogen 33 mg/dL (8-24); Bun/Creatinine Ratio 19.6 (12.0-20.0); CO2, Blood 26 mmol/L (21-32); Calcium, Blood 8.7 mg/dL (8.5-10.1); Chloride, Blood 110 mmol/L (98-108); Creatinine, Blood 1.68 mg/dL (0.60-1.20); Glomerular Filtration Rate 40 (60-); Glucose, Blood 85 mg/dL (70-99); Phosphorus, Blood 3.3 mg/dL (2.5-4.9); Potassium, Blood 3.6 mmol/L (3.5-5.5); Sodium, Blood 143 mmol/L (136-145)
--- NOTE | 2024-08-28 06:30 | NUR ---
SHIFT SUMMARY: NO ACUTE CHANGES OVERNIGHT; VSS THROUGHOUT THE SHIFT. PT SLEPT ON AND OFF; REDIRECTABLE AND COOPERATIVE WITH CARE AT THIS TIME. PULLED OFF CONDOM CATH BUT WAS ABLE TO CALL FOR ASSISTANCE WITH URINAL TO VOID; PT STILL EXPERIENCING INCONTINENT EPISODE, ATTENDS IN PLACE. PT MORE AWAKE THIS MORNING AND WAS ABLE TO STATE EVENTS LEADING UP TO ADMISSION BUT STILL THINKS HE IS AT HOME, AND THE YEAR IS 1981. PT PENDING TRANSFER TO PCU 7. BED LOWERED, CALL LIGHT IN REACH.
[2024-08-28] MEDS ORDERED: Spironolactone 12.5 MG TAB PO SCH (09:00)
[2024-08-28] MEDS ORDERED: Modafinil 200 MG Tab PO SCH (09:00)
[2024-08-28] MEDS ORDERED: Torsemide 20 MG TAB PO SCH (09:00)
--- NOTE | 2024-08-28 10:20 | NUR ---
CALL PLACED TO VOICEMAIL, WILL CALL AGAIN IN 20MINUTES.
--- NOTE | 2024-08-28 11:58 | NUR ---
ROUNDED ON PATIENT. HE WAS CONFUSED UP IN THE CHAIR AT THIS TIME. HE WAS TRYING TO GET UP. ASSISTED RN IN REPOSITIONING PATIENT AND HE REQUESTED TO USE THE BSC. REQUESTED THAT BEDSIDE RN CALL IF FAMILY COMES IN. DISCUSSED CASE WITH DR. COLES. HE REPORTED THAT HE HAD A LOT OF INDEPTH CONVERSATIONS WITH FAMILY ABOUT HOSPICE AND SHIFTING FOCUS TO QUALITY OF LIFE OVER CURATIVE MEASURES. WILL CONTINUE TO PROVIDE SUPPORT
--- NOTE | 2024-08-28 16:36 | NUR ---
MET WITH FAMILY OF PATIENT. AND DAUGHTER AT BEDSIDE. REPORTED THAT PATIENTS IS MOVING INTO TOWN. IS ANXIOUS ABOUT THE MOVE BUT UNDERSTANDS HOW IT WILL BE BETTER TO BE CLOSER TO THE HOSPITAL IF SOMETHING HAPPENS. PROVIDED THERAPUTIC LISTENING EXPRESSES HER CONCERNS. WE DISCUSSED THE CURRENT STATE [place] IS IN AND HOW HE HAS DONE THIS HOSPITILIZATION. FAMILY REMAINS HOPEFUL TO SEE SOME IMPROVMENT.
--- NOTE | 2024-08-28 17:06 | NUR ---
END OF SHIFT SUMMARY: PATIENT IS ALERT AND ORIENTED X3 IS ABLE TO SAY HE'S IN [place] BUT ISN'T QUITE SURE THE NAME OF HOSPITAL OR WHAT BROUGHT HIM HERE. PATIENT BECAME ANXIOUS THROUGHOUT THE SHIFT WHEN TRYING TO TRANSFER TO BEDSIDE COMMODE/CHAIR/BED. IS SATTING >92% ON ROOM AIR AND HAS EVEN UNLABORED BREATHING. ON TELE SHOWING AFIB WITH RATE IN THE 70'S. BLOOD PRESURE HAS BEEN STABLE AND BETTER THAN REPORTED PREVIOUS SHIFTS. DIET WAS SWITCHED TO HEART HEALTHY AND PATIENT TOLERATED IT WELL TODAY. TOOK HIS MEDICATIONS WITH APPLESAUCE. IS A 2 PERSON ASSIST WITH GAIT BELT AND FRONT WHEELED WALKER. FAMILY HAS BEEN AT BEDSIDE THROUGHOUT SHIFT. NO EVENTS THROUGHOUT SHIFT. WILL CONTINUE TO MONITOR AND REPORT TO ONCOMING DENTAL ASSOCIATE RN.
[2024-08-29] VITALS (11 sets, daily range): BP systolic 90–107; BP diastolic 40–54
[2024-08-29 03:58] LABS: BASOPHILS ABSOLUTE AUTO 0.04 K/mm3 (0.00-0.23); BASOPHILS PERCENT AUTO 1 % (0-2); EOSINOPHILS ABSOLUTE AUTO 0.25 K/mm3 (0.00-0.68); EOSINOPHILS PERCENT AUTO 3 % (0-6); Hematocrit 30.2 % (37.0-53.0); Hemoglobin 8.8 g/dL (13.5-17.5); IMMATURE GRAN ABSOLUTE AUTO 0.06 K/mm3 (0.00-0.10); IMMATURE GRAN PERCENT AUTO 1 % (0-1); LYMPHOCYTES ABSOLUTE AUTO 0.87 K/mm3 (0.84-5.20); LYMPHOCYTES PERCENT AUTO 12 % (21-46); MONOCYTES ABSOLUTE AUTO 0.59 K/mm3 (0.16-1.47); MONOCYTES PERCENT AUTO 8 % (4-13); Mean Corpuscular HGB 24.2 pg (26.0-34.0); Mean Corpuscular HGB Conc 29.1 g/dL (31.5-36.5); Mean Corpuscular Volume 83 fL (80-100); Mean Platelet Volume 10.1 fL (9.1-12.4); NEUTROPHILS ABSOLUTE AUTO 5.47 K/mm3 (1.96-9.15); NEUTROPHILS PERCENT AUTO 75 % (41-73); Platelet Count 163 K/mm3 (150-400); RDW Coefficient Variation 27.9 % (11.7-14.2); RDW Standard Deviation 82.2 fL (35.1-46.3); Red Blood Cell Count 3.63 M/mm3 (4.30-5.90); White Blood Cell Count 7.28 K/mm3 (4.00-11.30)
[2024-08-29 04:17] LABS: Albumin, Blood 2.7 g/dL (3.4-5.0); Anion Gap 10 mmol/L (3-11); Blood Urea Nitrogen 34 mg/dL (8-24); Bun/Creatinine Ratio 20.4 (12.0-20.0); CO2, Blood 26 mmol/L (21-32); Calcium, Blood 8.2 mg/dL (8.5-10.1); Chloride, Blood 110 mmol/L (98-108); Creatinine, Blood 1.67 mg/dL (0.60-1.20); Glomerular Filtration Rate 41 (60-); Glucose, Blood 88 mg/dL (70-99); Phosphorus, Blood 3.2 mg/dL (2.5-4.9); Potassium, Blood 3.5 mmol/L (3.5-5.5); Sodium, Blood 142 mmol/L (136-145)
--- NOTE | 2024-08-29 05:08 | NUR ---
SHIFT SUMMARY UPON INITIAL ASSESSMENT PT WAS DIFFICULT TO AROUSE/LETHARGIC. FOLLOWING SOME COMMANDS. MINIMAL CONVERSATION, BUT APPROPRIATE. THIS HAS BEEN UNCHANGED THROUGHOUT THE NIGHT. THIS AM, PATIENT STARTED HAVING FAILURE TO CAPTURE OF HIS PACER. THIS RN PHONED DR. MORALES REGARDING THIS. PLAN TO DISCUSS WITH CARDIOLOGY DURING DAYSHIFT. PATIENT IS ASYMPTOMATIC AT THIS TIME. NO FURTHER ACUTE EVENTS THIS SHIFT.
[2024-08-29 07:07] LABS: Base Excess Venous 3.9 mmol/L; Bicarbonate Venous 27.7 mmol/L (24.0-30.0); PCO2 Venous 36.5 mmHg (38-42); pH Blood Venous 7.48 (7.34-7.37)
--- NOTE | 2024-08-29 08:41 | NUR ---
MD AT BEDSIDE: MENTIONED TO BRAZER CRAWLER TORCH ABOUT THE FAILURE TO CAPTURE RELAYED FROM CARMEN GARCIA RN, AND MD STATED IT IS NOT REAL. HIS ICD WAS INTERROGATED TWO DAYS AGO AND HE IS NOT WORRIED ABOUT IT.
--- NOTE | 2024-08-29 16:09 | NUR ---
MD FUNES AT BEDSIDE TALKING WITH PATIENT AND FAMILY.
--- NOTE | 2024-08-29 17:41 | NUR ---
END OF SHIFT SUMMARY: PATIENT IS ALERT AND ORIENTED 3-4, ANSWERED ALL ORIENTATION QUESTIONS BUT IS FORGETFUL. WAS SLIGHTLY ANXIOUS WHEN USING THE WALKER TO GET TO THE CHAIR AND THE BEDSIDE COMMODE. IS SATTING >92% ON ROOM AIR, EVEN AND ULABORED BREATHING AT REST. ON TELE SHOWING SINUS WITH RATE IN THE 70'S. PATIENT HUNG OUT IN CHAIR AND WAS ABLE TO GET SOME REST TODAY. MD CAME BY AND PLAN IS TO POSSIBLY DISCHARGE TOMORROW WHEN OVERSEER KOSHER KITCHEN IS HERE TO BE ABLE TO SET THINGS UP WITH [facility] WHERE HE IS FROM. FAMILY WAS AT BEDSIDE THROUGHOUT SHIFT. NO EVENTS THROUGHOUT SHIFT, WILL CONTINUE TO MONITOR UNTIL POLICY CHECKER RN HANDOFF.
[2024-08-29] MEDS ORDERED: Midodrine 5 MG Tab PO ONE (20:30)
--- NOTE | 2024-08-29 22:26 | NUR ---
NURSE NOTE LOW BP'S. AWARE. ONE TIME MIDODRINE 10MG NOW.
[2024-08-30] VITALS (12 sets, daily range): BP systolic 95–110; BP diastolic 47–77
[2024-08-30 04:03] LABS: Hematocrit 30.5 % (37.0-53.0); Mean Corpuscular HGB 24.1 pg (26.0-34.0); Mean Corpuscular HGB Conc 29.5 g/dL (31.5-36.5); Mean Corpuscular Volume 82 fL (80-100); Mean Platelet Volume 9.6 fL (9.1-12.4); Platelet Count 168 K/mm3 (150-400); Red Blood Cell Count 3.73 M/mm3 (4.30-5.90); White Blood Cell Count 7.26 K/mm3 (4.00-11.30)
[2024-08-30 04:17] LABS: Albumin, Blood 2.7 g/dL (3.4-5.0); Anion Gap 11 mmol/L (3-11); Blood Urea Nitrogen 31 mg/dL (8-24); CO2, Blood 26 mmol/L (21-32); Calcium, Blood 8.4 mg/dL (8.5-10.1); Chloride, Blood 107 mmol/L (98-108); Creatinine, Blood 1.55 mg/dL (0.60-1.20); Glomerular Filtration Rate 44 (60-); Glucose, Blood 86 mg/dL (70-99); Phosphorus, Blood 3.1 mg/dL (2.5-4.9); Potassium, Blood 3.4 mmol/L (3.5-5.5); Sodium, Blood 141 mmol/L (136-145)
--- NOTE | 2024-08-30 05:51 | NUR ---
SHIFT SUMMARY PT MORE ALERT AND RESPONSIVE THIS EVENING THAN PREVIOUS SHIFTS. HOWEVER, PT HAS HAD SOFT BP'S THIS SHIFT. SURVEYOR WAS NOTIFIED. A ONE TIME DOSE OF 10MG MIDODRINE WAS GIVEN. MAPS > 65. OTHERWISE, PT HAS HAD NO ACUTE CHANGES THIS SHIFT.
[2024-08-30] MEDS ORDERED: Potassium Chloride 10 Meq Tablet SA PO SCH (09:00)
[2024-08-30] MEDS ORDERED: Enoxaparin 30 MG/0.3 ML SYR SC SCH (09:00)
[2024-08-30] MEDS ORDERED: TORSE20 PO (15:26)
[2024-08-30] MEDS ORDERED: DOCU100 PO (15:27)
[2024-08-30] MEDS ORDERED: FERSU300 PO (15:27)
[2024-08-30] MEDS ORDERED: LEVE500 PO (15:30)
[2024-08-30] MEDS ORDERED: HYDROCODONE-AC1 EA19 PO (15:30)
[2024-08-30] MEDS ORDERED: SPIR25 PO (15:31)
[2024-08-30] MEDS ORDERED: MODA200 PO (15:31)
[2024-08-30] MEDS ORDERED: MIRALAX17 GM PO (15:32)
--- NOTE | 2024-08-30 17:21 | NUR ---
END OF SHIFT SUMMARY: PATIENT IS ALERT AND ORIENTED 3-4, IS ABLE TO TELL ME HE IS IN [place] BUT NOT ABLE TO RECALL HE IS IN THE HOSPITAL OR ANY EVENTS LEADING UP TO HIS ARRIVAL. IS SATTING >92% ON ROOM AIR, EVEN AND UNLABORED BREATHING. ON TELE SHOWING SINUS WITH RATE IN THE 60'S. PATIENT WORKED WITH PT AND OT AND THEY ARE RECCOMENDING PATIENT TO GO TO REHAB. PATIENT WILL GET DISCHARGED TO [facility] TOMORROW 12.3. FAMILY AT BEDSIDE THROUHGOUT SHIFT. NO EVENTS THROUGHOUT SHIFT, WILL CONTINUE TO MONITOR UNTIL HANDOFF REPORT TO ONCOMING PRESSING MACHINE TENDER RN.
[2024-08-31] VITALS: BP 107/58
[2024-08-31 04:00] VITALS: BP 108/53
[2024-08-31 04:36] LABS: Albumin, Blood 2.8 g/dL (3.4-5.0); Anion Gap 11 mmol/L (3-11); Blood Urea Nitrogen 32 mg/dL (8-24); Bun/Creatinine Ratio 19.5 (12.0-20.0); CO2, Blood 27 mmol/L (21-32); Calcium, Blood 8.4 mg/dL (8.5-10.1); Chloride, Blood 106 mmol/L (98-108); Creatinine, Blood 1.64 mg/dL (0.60-1.20); Glomerular Filtration Rate 42 (60-); Glucose, Blood 91 mg/dL (70-99); Phosphorus, Blood 3.7 mg/dL (2.5-4.9); Potassium, Blood 3.5 mmol/L (3.5-5.5); Sodium, Blood 140 mmol/L (136-145)
--- NOTE | 2024-08-31 06:06 | NUR ---
SHIFT SUMMARY PT ALERT AND ORIENTED X3, FORGETFUL, EASILY REORIENTED TO PLACE AND SITUATION, VSS, AFEBRILE, RA SPO2 >90% , NO SOB OR CHEST PAIN , ON TELEMETRY, SINUS RHYTHM SINUS JEREMIAS 50-60S BPM, MALE PUREWICK IN PLACE AND PATENT, ASSISTED UP TO BSC X1 , PT HAD X1 BM NO ACUTE EVENTS THIS SHIFT, BED ALARM OM, SIDE RAILS UP X2 CALL LIGHT IN REACH
[2024-08-31 07:49] VITALS: BP 107/60
--- NOTE | 2024-08-31 09:38 | NUR ---
am note this rn assumed care at 0700. vital signs stable. sinus 60s. spo2 >90% on room air. patient is alert and oriented to place, self, person, and date/time. patient unable to tell this rn why exactly he is in the hospital or what brought him here. patient does know that he is going to rehab today and expressed excitment in continuing to get stronger. patient denies chest pain/pressure, pain, or shortness of breath. patient is two person assist with gait belt, and walker. patient takes meds whole in applesauce or pudding. patient has purewick in place hooking up to suction, yellow coloration. see shift assessment for further detials. covid swab done this am for the facility discharge. plan to discharge to [facility] rehab this afternoon.
[2024-08-31 09:59] LABS: SARS-Cov-2 (COVID-19) PCR, MMC NEGATIVE (NEGATIVE)
--- NOTE | 2024-08-31 10:49 | NUR ---
update this rn spoke svetlana daughter abdi on the phone
[2024-08-31 11:01] VITALS: BP 121/61
--- NOTE | 2024-08-31 11:48 | NUR ---
Spiritual care visit conducted. The patient is sitting on a chair and alert. He talks about the plan to go to a SNF today and then he discussed his concern about eventually going home. He states that he has had 2 ambulance rides in the last 3 months and feels like home is not the best option for he and his moving forward. He talks out the options and pros and cons of assisted living. He tells me about his family. His son and grandson who recently moved to [place] and his dtr that lives locally. He shares about his strong Cheondoism wilfred and welcomes prayer. I gladly provided prayer and gentle group counselor. The patient responded well and showed signs of greater peace.
--- NOTE | 2024-08-31 12:34 | NUR ---
update this rn called [facility] and gave report to cheryl. this rn informed cheryl the hard script is in the packet.
--- NOTE | 2024-08-31 13:07 | NUR ---
discharge patient left with two hard scripts in the packet for [place], norco and provigil. patient daughter and at bedside. this rn went over new medications and follow up appointments with the daughter and . patient left with all belongings and patient left in no distress.
== END 2024-08-31 13:01 | DRG 811 ==
LOC: ER 02:37 → ERHOLD 05:24 → PCU 05:24 → ICUE 08-21 16:21 → PCU 08-21 16:21 → ICUE 08-26 20:59 → PCU 08-28 07:46
PROVIDERS: Emergency Medicine; Family Medicine; Hospitalist; Internal Medicine; Nurse Practitioner Acute Care; ADMIT Student in an Organized Health Care Education/Training Program
PROC: 4B02XTZ Measurement of Cardiac Defibrillator, External Approach (ICD-10-PCS; 2024-08-20)
PROC: 4A00X4Z Measurement of Central Nervous Electrical Activity, External Approach (ICD-10-PCS; principal; 2024-08-24)
PROC: 3E033XZ Introduction of Vasopressor into Peripheral Vein, Percutaneous Approach (ICD-10-PCS; 2024-08-26)
PROC: 5A2204Z Restoration of Cardiac Rhythm, Single (ICD-10-PCS; 2024-08-26)
DX: D50.9 Iron deficiency anemia, unspecified (principal); I50.23 Acute on chronic systolic (congestive) heart failure; S32.412A Displaced fracture of anterior wall of left acetabulum, initial encounter for closed fracture; S32.592A Other specified fracture of left pubis, initial encounter for closed fracture; S22.32XA Fracture of one rib, left side, initial encounter for closed fracture; N17.9 Acute kidney failure, unspecified; I13.0 Hypertensive heart and chronic kidney disease with heart failure and stage 1 through stage 4 chronic kidney disease, or unspecified chronic kidney disease; I48.20 Chronic atrial fibrillation, unspecified; G93.49 Other encephalopathy; K56.7 Ileus, unspecified; I45.2 Bifascicular block; R56.9 Unspecified convulsions; N18.32 Chronic kidney disease, stage 3b; G47.419 Narcolepsy without cataplexy; E11.9 Type 2 diabetes mellitus without complications; I25.10 Atherosclerotic heart disease of native coronary artery without angina pectoris; I08.3 Combined rheumatic disorders of mitral, aortic and tricuspid valves; I27.20 Pulmonary hypertension, unspecified; K21.9 Gastro-esophageal reflux disease without esophagitis; I25.5 Ischemic cardiomyopathy; I95.9 Hypotension, unspecified; E78.5 Hyperlipidemia, unspecified; D63.1 Anemia in chronic kidney disease; I67.9 Cerebrovascular disease, unspecified; Z95.1 Presence of aortocoronary bypass graft; Z95.5 Presence of coronary angioplasty implant and graft; Z95.818 Presence of other cardiac implants and grafts; Z95.810 Presence of automatic (implantable) cardiac defibrillator; Z45.02 Encounter for adjustment and management of automatic implantable cardiac defibrillator; Z87.891 Personal history of nicotine dependence; Z79.82 Long term (current) use of aspirin; Z79.84 Long term (current) use of oral hypoglycemic drugs; W18.39XA Other fall on same level, initial encounter
CPT/HCPCS: 36415; 51702; 70450; 71045; 71046; 72192; 73502; 74174; 80048; 80053; 80069; 82140; 82533; 82570; 82728; 82803; 82947; 83540; 83550; 83605; 83735; 84146; 84443; 84540; 84550; 85014; 85018; 85025; 85027; 85045; 86850; 86900; 86901; 93005; 93010; 93306; 93978; 94762; 95819; 96361; 96365; 96366; 96367; 96375; 96376; 97110; 97116; 97162; 97165; 97530; 97535; 99285-25; A9270; G0378; J0282; J1160; J1650; J1750; J1953; J2060; J2371; J2405; J2916; J3010; J3475; J3480; J7030; J7050; J7060; J7120; Q9967; U0002

== ENCOUNTER 2024-09-11 22:45 | Emergency (ER) | payer OTHER, MEDICARE ==
[~2024-09-11] VITALS: Ht 177.8 cm; Wt 79.4 kg
[~2024-09-11 22:45] MED LIST changes: +BISA10S PR; +DOCU100 PO; +DULCOLAX400 MG/5 M PO; +FERSU300 PO; +HYDROCODONE-AC1 EA19 PO; +LEVE500 PO; +MELA3 PO; +MIRALAX17 GM PO; +MODA200 PO
[2024-09-11 23:00] VITALS: BP 129/62
[2024-09-12 01:31] LABS: BASOPHILS ABSOLUTE AUTO 0.08 K/mm3 (0.00-0.23); BASOPHILS PERCENT AUTO 1 % (0-2); EOSINOPHILS ABSOLUTE AUTO 0.19 K/mm3 (0.00-0.68); EOSINOPHILS PERCENT AUTO 3 % (0-6); Hemoglobin 12.5 g/dL (13.5-17.5); IMMATURE GRAN ABSOLUTE AUTO 0.04 K/mm3 (0.00-0.10); IMMATURE GRAN PERCENT AUTO 1 % (0-1); LYMPHOCYTES PERCENT AUTO 20 % (21-46); MONOCYTES ABSOLUTE AUTO 0.77 K/mm3 (0.16-1.47); MONOCYTES PERCENT AUTO 13 % (4-13); Mean Platelet Volume 9.4 fL (9.1-12.4); NEUTROPHILS ABSOLUTE AUTO 3.84 K/mm3 (1.96-9.15); NEUTROPHILS PERCENT AUTO 63 % (41-73); Platelet Count 213 K/mm3 (150-400); White Blood Cell Count 6.12 K/mm3 (4.00-11.30)
[2024-09-12 01:34] LABS: Hematocrit 40.4 % (37.0-53.0); Mean Corpuscular HGB 25.8 pg (26.0-34.0); Mean Corpuscular HGB Conc 30.9 g/dL (31.5-36.5); Mean Corpuscular Volume 84 fL (80-100); Red Blood Cell Count 4.84 M/mm3 (4.30-5.90)
[2024-09-12 01:53] LABS: Albumin, Blood 3.4 g/dL (3.4-5.0); Albumin/Globulin Ratio 0.8 (0.8-1.8); Bilirubin, Total 0.8 mg/dL (0.1-1.0); Bun/Creatinine Ratio 26.6 (12.0-20.0); Calcium, Blood 9.6 mg/dL (8.5-10.1); Creatinine, Blood 1.28 mg/dL (0.60-1.20); Globulin, Blood 4.4 g/dL (2.2-4.0); Potassium, Blood 3.9 mmol/L (3.5-5.5); Total Protein, Blood 7.8 g/dL (6.4-8.2)
[2024-09-12] MEDS ORDERED: Acetaminophen 500 MG Tab PO ONE (02:15)
== END 2024-09-12 03:46 | disposition home or self-care (01) ==
LOC: ER 22:45
PROVIDERS: Emergency Medicine
DX: S09.90XA Unspecified injury of head, initial encounter (principal); E11.22 Type 2 diabetes mellitus with diabetic chronic kidney disease; N18.30 Chronic kidney disease, stage 3 unspecified; I48.91 Unspecified atrial fibrillation; W01.0XXA Fall on same level from slipping, tripping and stumbling without subsequent striking against object, initial encounter; Z87.891 Personal history of nicotine dependence; Z79.02 Long term (current) use of antithrombotics/antiplatelets; Z79.899 Other long term (current) drug therapy
CPT/HCPCS: 70450; 80053; 85025; 99284-25; A9270

== ENCOUNTER 2025-01-31 17:45 | Emergency (ER) | payer MEDICARE ==
[~2025-01-31] VITALS: Ht 172.7 cm; Wt 81.7 kg
[2025-01-31 18:33] LABS: BASOPHILS ABSOLUTE AUTO 0.08 K/mm3 (0.00-0.23); BASOPHILS PERCENT AUTO 1 % (0-2); EOSINOPHILS ABSOLUTE AUTO 0.21 K/mm3 (0.00-0.68); EOSINOPHILS PERCENT AUTO 3 % (0-6); Hematocrit 42.8 % (37.0-53.0); Hemoglobin 13.8 g/dL (13.5-17.5); IMMATURE GRAN ABSOLUTE AUTO 0.02 K/mm3 (0.00-0.10); IMMATURE GRAN PERCENT AUTO 0 % (0-1); LYMPHOCYTES ABSOLUTE AUTO 1.12 K/mm3 (0.84-5.20); LYMPHOCYTES PERCENT AUTO 16 % (21-46); MONOCYTES ABSOLUTE AUTO 0.97 K/mm3 (0.16-1.47); MONOCYTES PERCENT AUTO 14 % (4-13); Mean Corpuscular HGB 31.3 pg (26.0-34.0); Mean Corpuscular HGB Conc 32.2 g/dL (31.5-36.5); Mean Corpuscular Volume 97 fL (80-100); Mean Platelet Volume 9.7 fL (9.1-12.4); NEUTROPHILS ABSOLUTE AUTO 4.55 K/mm3 (1.96-9.15); NEUTROPHILS PERCENT AUTO 65 % (41-73); Platelet Count 126 K/mm3 (150-400); RDW Standard Deviation 53.6 fL (35.1-46.3); Red Blood Cell Count 4.41 M/mm3 (4.30-5.90); White Blood Cell Count 6.95 K/mm3 (4.00-11.30)
[2025-01-31 19:37] LABS: Albumin, Blood 3.9 g/dL (3.4-5.0); Albumin/Globulin Ratio 1.1 (0.8-1.8); Bun/Creatinine Ratio 22.5 (12.0-20.0); Calcium, Blood 9.3 mg/dL (8.5-10.1); Creatinine, Blood 1.6 mg/dL (0.60-1.20); Globulin, Blood 3.4 g/dL (2.2-4.0); Potassium, Blood 3.9 mmol/L (3.5-5.5); Total Protein, Blood 7.3 g/dL (6.4-8.2)
[2025-01-31 20:59] VITALS: BP 118/64
== END 2025-01-31 21:01 | disposition home or self-care (01) ==
LOC: ER 17:45
PROVIDERS: Emergency Medicine
DX: R06.09 Other forms of dyspnea (principal); N18.30 Chronic kidney disease, stage 3 unspecified; E11.22 Type 2 diabetes mellitus with diabetic chronic kidney disease; I50.22 Chronic systolic (congestive) heart failure; Z79.899 Other long term (current) drug therapy; Z95.1 Presence of aortocoronary bypass graft; Z87.891 Personal history of nicotine dependence
CPT/HCPCS: 71045; 80053; 83880; 84484; 85025; 93005; 93010; 99285-25

== ENCOUNTER 2025-02-07 11:18 | Inpatient (IN) | payer MEDICARE ==
[~2025-02-07] VITALS: Ht 177.8 cm; Wt 85.2 kg
[2025-02-07] MEDS ORDERED: Furosemide 10 MG/ML 10ML Vial IV ONE (12:15)
[2025-02-07] MEDS ORDERED: Metoprolol Tartrate 1 MG/ML 5 ML VIAL IV PRN (12:15)
[2025-02-07] MEDS ORDERED: Magnesium Sulf 2 GM/Water 50ML 50 ML IV ONE (12:15)
[2025-02-07 12:18] LABS: BASOPHILS ABSOLUTE AUTO 0.07 K/mm3 (0.00-0.23); BASOPHILS PERCENT AUTO 1 % (0-2); EOSINOPHILS ABSOLUTE AUTO 0.12 K/mm3 (0.00-0.68); EOSINOPHILS PERCENT AUTO 2 % (0-6); Hematocrit 43.9 % (37.0-53.0); Hemoglobin 14.2 g/dL (13.5-17.5); IMMATURE GRAN ABSOLUTE AUTO 0.02 K/mm3 (0.00-0.10); IMMATURE GRAN PERCENT AUTO 0 % (0-1); LYMPHOCYTES ABSOLUTE AUTO 0.84 K/mm3 (0.84-5.20); LYMPHOCYTES PERCENT AUTO 11 % (21-46); MONOCYTES ABSOLUTE AUTO 0.65 K/mm3 (0.16-1.47); MONOCYTES PERCENT AUTO 9 % (4-13); Mean Corpuscular HGB 31.1 pg (26.0-34.0); Mean Corpuscular HGB Conc 32.3 g/dL (31.5-36.5); Mean Corpuscular Volume 96 fL (80-100); NEUTROPHILS ABSOLUTE AUTO 5.92 K/mm3 (1.96-9.15); NEUTROPHILS PERCENT AUTO 78 % (41-73); Platelet Count 131 K/mm3 (150-400); RDW Coefficient Variation 15.1 % (11.7-14.2); RDW Standard Deviation 53.2 fL (35.1-46.3); Red Blood Cell Count 4.57 M/mm3 (4.30-5.90); White Blood Cell Count 7.62 K/mm3 (4.00-11.30)
[2025-02-07 12:36] LABS: Albumin, Blood 3.8 g/dL (3.4-5.0); Albumin/Globulin Ratio 1.2 (0.8-1.8); Bilirubin, Total 1.5 mg/dL (0.1-1.0); Bun/Creatinine Ratio 22.2 (12.0-20.0); Calcium, Blood 9.3 mg/dL (8.5-10.1); Creatinine, Blood 2.03 mg/dL (0.60-1.20); Globulin, Blood 3.3 g/dL (2.2-4.0); Potassium, Blood 4.2 mmol/L (3.5-5.5); Total Protein, Blood 7.1 g/dL (6.4-8.2)
[2025-02-07] MEDS ORDERED: Metoprolol Tartrate 25 MG Tab PO ONE (12:55)
[2025-02-07] MEDS ORDERED: VITAMIN D325 MC3 PO (14:11)
[2025-02-07] MEDS ORDERED: CENTRUM SILVER1 EAC2 PO (14:12)
[2025-02-07] MEDS ORDERED: PRESERVISION A1 EAC1 PO (14:13)
[2025-02-07] MEDS ORDERED: Polyethylene Glycol 3350 17 gm PO PRN (14:15)
[2025-02-07] MEDS ORDERED: Acetaminophen 500 MG Tab PO PRN (14:20)
[2025-02-07] MEDS ORDERED: AcetaZOLAMIDE Sodium 500 MG Vial IV ONE (15:00)
[2025-02-07] MEDS ORDERED: Ondansetron HCl 2 MG / ML 2ML Vial IV PRN (15:45)
[2025-02-07 16:46] VITALS: BP 107/75
--- NOTE | 2025-02-07 19:07 | NUR ---
SHIFT SUMMARY PT ARRIVED FROM THE ER JUST BEFORE 1700 TODAY, A/OX 4, VSS THOUGH HE DID HAVE A FEW SHORT RUNS OF V TACH WHEN HE WAS FEEING INCREASED PRESSURE IN HIS BELLY AFTER DINNER, HE WAS REPOSITIONED AND REPROTED FEELING BETTER. PUREWICK IN PLACE THOUGH HE HAS NOT HAD TO VOID SINCE ARRIVING TO THE FLOOR. NO OTHER EVENTS THIS SHIFT, CALL LIGHT IN REACH.
[2025-02-07 19:13] VITALS: BP 107/67
[2025-02-07] MEDS ORDERED: Docusate Sodium/Senna 1 Tab PO SCH (21:00)
--- NOTE | 2025-02-07 21:04 | NUR ---
ASSUMED CARE OF THIS PATIENT AT 1900. PT IS SITTING UP IN BED W/ HOB ELAVATED. FAMILY AT BEDSIDE (, DAUGHTER, AND GRANDDAUGHTER). DISSCUSSED PLAN OF CARE WITH THEM AND THEY DEPARTED FOR THE NIGHT. PT IS A+O X4 BUT STATES HE IS "TIRED" AND WOULD LIKE TO SLEEP TONIGHT. VSS. WEARING 2 LITER NC FOR COMFORT TO ASSIT WITH FEELINGS OF SOB. SATTING 98% ON THE MONITOR. IN NO ACUTE DISTRESS. BRUISING NOTED ON BI LATERAL UPPER EXERMITIES AND LOWER. SKIN IN COOL TO THE TOUCH PROVIDED WARM BLANKET. HYPOACTIVE BOWEL TONES NOTED, ABDOMEN APEARS TO BE DISTENDED BUT SOFT TO THE TOUCH. PT DENIES PAIN OF ANY KIND AT5 THIS TIME OR ANY OTHER NEEDS. BED IN LOWEST POSTION, SIDE RAILS UP X2, CALL LIGHT IN REACH. BED ALARM PLACED ON FOR SAFETY.
[2025-02-07] MEDS ORDERED: LevETIRAcetam 500 MG Tab PO ONE (23:35)
[2025-02-07 23:59] VITALS: BP 103/63
[2025-02-08 03:50] VITALS: BP 115/98
[2025-02-08 04:14] LABS: Hematocrit 43.2 % (37.0-53.0); Mean Corpuscular HGB Conc 32.4 g/dL (31.5-36.5); Mean Corpuscular Volume 96 fL (80-100); Platelet Count 141 K/mm3 (150-400); RDW Coefficient Variation 15.1 % (11.7-14.2); RDW Standard Deviation 53.6 fL (35.1-46.3); Red Blood Cell Count 4.51 M/mm3 (4.30-5.90); White Blood Cell Count 6.83 K/mm3 (4.00-11.30)
[2025-02-08 04:52] LABS: Albumin, Blood 3.7 g/dL (3.4-5.0); Anion Gap 14 mmol/L (3-11); Blood Urea Nitrogen 55 mg/dL (8-24); Bun/Creatinine Ratio 23.8 (12.0-20.0); CO2, Blood 22 mmol/L (21-32); Calcium, Blood 9.3 mg/dL (8.5-10.1); Chloride, Blood 98 mmol/L (98-108); Creatinine, Blood 2.31 mg/dL (0.60-1.20); Glomerular Filtration Rate 28 (60-); Glucose, Blood 93 mg/dL (70-99); Magnesium, Blood 2.5 mg/dL (1.6-2.4); Potassium, Blood 4.1 mmol/L (3.5-5.5); Sodium, Blood 130 mmol/L (136-145)
--- NOTE | 2025-02-08 05:48 | NUR ---
SHIFT SUMMARY PT IS A+O X4 ABLE TO ANSWER QUESTIONS AND MAKE NEEDS KNOWN, HE USES CALL LIGHT APPRT. WAS UP TO CHAIR FOR A LITTLE WHILE DURING THE NIGHT BECAUSE HIS BACK WAS HURTING DENIED WANTING PRN MEDS FOR THIS. WORE 2L NC DURING THE NIGHT SATTING AT 90% AND ABOVE. 1 PERON TRANSFER WITH WALKER (WHICH HE USES AT BASELINE). DENIES CHEST PAIN OR PRESSURE. IN NOT ACUTE DISTRESS. MED REC COMPLETED BUT HOME MEDICARTIONS STILL NEED TO BE ORDERED. BED IN LOWEST POSTION, CALL LIGHT IN REACH, WILL REPORT TO ONCOMING RN.
[2025-02-08 07:49] VITALS: BP 111/84
[2025-02-08] MEDS ORDERED: Spironolactone 12.5 MG TAB PO SCH (09:00)
[2025-02-08] MEDS ORDERED: Amiodarone HCl 200 MG Tab PO SCH (09:00)
[2025-02-08] MEDS ORDERED: LevETIRAcetam 500 MG Tab PO SCH (09:00)
[2025-02-08] MEDS ORDERED: Enoxaparin 40 MG/0.4 ML SYR SC SCH (09:00)
[2025-02-08] MEDS ORDERED: Empagliflozin 10 MG TAB PO SCH (09:00)
[2025-02-08] MEDS ORDERED: Cholecalciferol 1000 Unit Tablet (=25MCG) PO SCH (09:00)
[2025-02-08] MEDS ORDERED: Tamsulosin HCl 0.4 MG Cap PO SCH (09:00)
[2025-02-08] MEDS ORDERED: Furosemide 10 MG/ML 4ML Vial IV SCH (09:00)
[2025-02-08] MEDS ORDERED: Clopidogrel Bisulfate 75 MG Tab PO SCH (09:00)
[2025-02-08 11:31] VITALS: BP 106/76
[2025-02-08] MEDS ORDERED: Simethicone 80 MG Chew PO PRN (14:00)
[2025-02-08 15:23] VITALS: BP 103/67
--- NOTE | 2025-02-08 16:58 | NUR ---
SHIFT SUMMARY: PT IS A/OX4. REMAINED AFIB 80'S. O2 HAS REMAINED >98% ON 1L VIA NC. O2 FOR PT COMFORT. PT HAS ECCHYMOSIS SCATTERED T/O. SMALL SKIN TEAR ON RIGHT HAND 3RD DIGIT THAT IS SCABBED OVER. PT IS A 1XFWW TO CHAIR. HAS PUREWICK FOR URGENCY. STATUS CHANGED TO MED W/ TELE. NO ACUTE CHANGES.
[2025-02-08 19:08] VITALS: BP 108/73
[2025-02-08] MEDS ORDERED: Atorvastatin 40 MG Tab PO SCH (21:00)
[2025-02-08] MEDS ORDERED: Methyl Salicylate/Menth/Camph 57 GM TUBE TOP SCH (21:00)
[2025-02-08 23:34] VITALS: BP 105/70
[2025-02-09 03:22] VITALS: BP 105/65
[2025-02-09 03:54] LABS: Hematocrit 40.1 % (37.0-53.0); Hemoglobin 13.2 g/dL (13.5-17.5); Mean Corpuscular HGB 30.7 pg (26.0-34.0); Mean Corpuscular HGB Conc 32.9 g/dL (31.5-36.5); Mean Corpuscular Volume 93 fL (80-100); Mean Platelet Volume 9.7 fL (9.1-12.4); Platelet Count 126 K/mm3 (150-400); RDW Coefficient Variation 14.8 % (11.7-14.2); RDW Standard Deviation 50.2 fL (35.1-46.3); White Blood Cell Count 5.83 K/mm3 (4.00-11.30)
[2025-02-09 04:13] LABS: Albumin, Blood 3.3 g/dL (3.4-5.0); Anion Gap 14 mmol/L (3-11); Blood Urea Nitrogen 64 mg/dL (8-24); Bun/Creatinine Ratio 26.8 (12.0-20.0); CO2, Blood 22 mmol/L (21-32); Calcium, Blood 8.8 mg/dL (8.5-10.1); Chloride, Blood 99 mmol/L (98-108); Creatinine, Blood 2.39 mg/dL (0.60-1.20); Glomerular Filtration Rate 26 (60-); Glucose, Blood 92 mg/dL (70-99); Magnesium, Blood 2.5 mg/dL (1.6-2.4); Potassium, Blood 3.5 mmol/L (3.5-5.5); Sodium, Blood 131 mmol/L (136-145)
[2025-02-09 08:09] VITALS: BP 110/83
[2025-02-09] MEDS ORDERED: Lisinopril 5 MG Tab PO SCH (09:00)
[2025-02-09] MEDS ORDERED: Lidocaine 4% 1 Patch TOP SCH (09:00)
[2025-02-09] MEDS ORDERED: Furosemide 10 MG / ML 2ML Vial IV SCH (09:00)
--- NOTE | 2025-02-09 09:04 | NUR ---
NURSING PCU DAYSHIFT: Assumed care of pt at approx 0700. A/O, mildly SALAMATOF, very pleasant, cooperative w/care. Xfers w/one staff assist, general weakness noted. Skin fragile, scattered bruising to UE's, blanchable redness to buttocks, no breakdown noted. Denies any pain/discomfort at rest. Tele in place, afib 90-110, no c/o CP/pressure, SBP 110 prior to a.m. meds, no noted edema. L/S dim mid/lower lobes w/fine bibasilar crackles, respirations shallow, dyspnea w/minimal exertion, occ moist/CARE COORDINATION MANAGER cough, O2 sat mid 90's on RA, continuous O2 monitoring in place. Abd nontender, mod distended which pt states normal, palpable mesh from hx of hernia repair, BT+, voiding w/o difficulty, wicking system in place. PIV x1, s/l. No s/s of acute distress at this time. Pt states he continues to feel better each day. Seen by PMD, plan of care discussed. Pt currently OOB in recliner, resting comfortably, call light in reach, cont to monitor for changes.
[2025-02-09 15:31] VITALS: BP 94/64
--- NOTE | 2025-02-09 17:58 | NUR ---
NURSING PCU DAYSHIFT SUMMARY: Pt has continued to do well t/o shift, rests frequently though arouses w/o difficulty. Respiratory status has remained stable on RA w/O2 sat maintaining upper 90's. Worked w/P.T. this afternoon, ambulated approx 80ft in burt w/use of FWW and GB, tolerated well though tired quickly. Family has been at bedside t/o much of the day, updates provided, plan of care discussed including possible discharge home within 24-48 hours, family agreeable to plan. OOB to chair for meals, currently in chair having supper while visiting w/granddaughter. No s/s of acute distress at this time, call light in reach, cont to monitor until rpt is given to NOC RN.
[2025-02-09 20:22] VITALS: BP 94/74
[2025-02-10] VITALS (7 sets, daily range): BP systolic 94–122; BP diastolic 67–83
[2025-02-10 05:55] LABS: Hematocrit 42.1 % (37.0-53.0); Hemoglobin 13.6 g/dL (13.5-17.5); Mean Corpuscular HGB 30.7 pg (26.0-34.0); Mean Corpuscular HGB Conc 32.3 g/dL (31.5-36.5); Mean Corpuscular Volume 95 fL (80-100); Mean Platelet Volume 9.3 fL (9.1-12.4); Platelet Count 113 K/mm3 (150-400); RDW Coefficient Variation 14.9 % (11.7-14.2); RDW Standard Deviation 52.2 fL (35.1-46.3); Red Blood Cell Count 4.43 M/mm3 (4.30-5.90); White Blood Cell Count 6.12 K/mm3 (4.00-11.30)
[2025-02-10 06:21] LABS: Albumin, Blood 3.6 g/dL (3.4-5.0); Anion Gap 13 mmol/L (3-11); Blood Urea Nitrogen 56 mg/dL (8-24); Bun/Creatinine Ratio 27.6 (12.0-20.0); CO2, Blood 25 mmol/L (21-32); Chloride, Blood 97 mmol/L (98-108); Creatinine, Blood 2.03 mg/dL (0.60-1.20); Glomerular Filtration Rate 32 (60-); Glucose, Blood 95 mg/dL (70-99); Magnesium, Blood 2.6 mg/dL (1.6-2.4); Phosphorus, Blood 4.7 mg/dL (2.5-4.9); Potassium, Blood 3.3 mmol/L (3.5-5.5); Sodium, Blood 132 mmol/L (136-145)
--- NOTE | 2025-02-10 07:29 | NUR ---
SHIFT SUMMARY PT TRANSFERED FROM ICU APPROX 2230. ADMITTED FOR ACUTE ON CHRONIC HFREF. POSSIBLE DC TODAY. PT IS 1-2PA TO BSC. WITNESSED PT TRANSFER SELF TO BED ON TRANSFER. HE IS MOSTLY STEADY ON HIS FEET, JUST NEEDS TO MOVE SLOWLY. HE HAS A MALE PURE WIC FOR I&O DIURESING. HE HAS BEEN PLEASANT AND COOPERATIVE WITH CARE. AFTER TRANSFER, HE ASKED FOR WARM BLANKET AND FOR LIGHTS TO BE TURNED OFF AND SLEPT FOR DURATION OF SHIFT. CALL LIGHT IN REACH.
--- NOTE | 2025-02-10 08:41 | NUR ---
pt states he's doing ok this am denies pain, reports an ok night, a/ox4, [place], pleasant and cooperative with care, follows commands well, lungs are clear, dim in bases, with a faint exp wheeze at the end of exp in the bases, on r/a, no cough noted, hrirr, distant sounds, tele in place running afib per monitor, see strip no edema noted, ppp+2, cap refill<3 sec, vs stable, afebrile, piv to lh, site is clear and patent, btx4, abd round soft nontender, voids via male purwick at this time, skin has a skin tear to , otherwise c/w/d, frail, maew, able to stand and tx with sba to chair, got him up to chair for breakfast without diff, call light in reach.
--- NOTE | 2025-02-10 13:18 | NUR ---
assisted pt back to bed after eating lunch in the chair, he ate 100%, family in room waiting to speak with Dr. pt denies any other needs at this time. call light in reach.
[2025-02-10] MEDS ORDERED: Simethicone 80 MG Chew PO PRN (13:35)
[2025-02-10] MEDS ORDERED: LOSA50 PO (17:55)
--- NOTE | 2025-02-10 18:30 | NUR ---
Pt family at bedside most of the day, he was up to chair for meals, pallative care in to see him. Dr. Felton came in to speak with family. no acute changes this shift. call light in reach.
[2025-02-11 04:54] VITALS: BP 108/77
[2025-02-11 06:23] LABS: Bun/Creatinine Ratio 29.8 (12.0-20.0); Creatinine, Blood 1.78 mg/dL (0.60-1.20); Potassium, Blood 3.5 mmol/L (3.5-5.5)
--- NOTE | 2025-02-11 06:35 | NUR ---
SHIFT SUMMARY: Pt is admitted for acute on chronic HFrEF and is a limited code. Is alert and able to make needs known. ADLs have been a mix of 1-2 depending of activity. Denies pain or discomfort when asked. Jonnathany noted afib in the 110s with a bundle branch and PVCs.
[2025-02-11 07:23] VITALS: BP 116/74
[2025-02-11] MEDS ORDERED: Torsemide 20 MG TAB PO SCH (09:00)
--- NOTE | 2025-02-11 09:27 | NUR ---
NOTIFIED MD OF SODIUM LEVEL 129, LEFT VOICEMAIL.
[2025-02-11 11:38] VITALS: BP 108/72
[2025-02-11] MEDS ORDERED: DOCUZEN 8.6-501 EACH PO (13:58)
[2025-02-11] MEDS ORDERED: LISI5 PO (13:59)
[2025-02-11] MEDS ORDERED: SIME80CH PO (14:00)
[2025-02-11] MEDS ORDERED: POTA10T PO (14:01)
--- NOTE | 2025-02-11 15:59 | NUR ---
DISCHARGE PT AOX4, COOPERATIVE, ABLE TO MAKE NEEDS KNOWN. PT IS 1 PERSON ASSIST TO BATHROOM TO VOID. PT TO GO HOME ON HOME HEALTH. WENT OVER DC PAPERWORK WITH FAMILY MEMBER/CAREGIVER. THIS RN DC'D IV WITHOUT ISSUE. PT WHEELED DOWN TO PT ENTRANCE TO GO HOME BY FAMILY TRANSPORT.
[2025-02-11] MEDS ORDERED: UREA 15 GM POWD.PACK PO SCH (21:00)
== END 2025-02-11 15:38 | disposition home health service (06) | DRG 291 ==
LOC: ER 11:18 → ERHOLD 14:14 → MEDS 14:14 → PCU 16:44 → MEDS 02-09 22:26
PROVIDERS: Internal Medicine; Physician Assistant; ADMIT Internal Medicine
DX: I50.43 Acute on chronic combined systolic (congestive) and diastolic (congestive) heart failure (principal); J96.01 Acute respiratory failure with hypoxia; S32.412A Displaced fracture of anterior wall of left acetabulum, initial encounter for closed fracture; S32.592A Other specified fracture of left pubis, initial encounter for closed fracture; N17.9 Acute kidney failure, unspecified; G93.49 Other encephalopathy; K56.7 Ileus, unspecified; I48.91 Unspecified atrial fibrillation; I27.20 Pulmonary hypertension, unspecified; E11.22 Type 2 diabetes mellitus with diabetic chronic kidney disease; N18.30 Chronic kidney disease, stage 3 unspecified; I71.43 Infrarenal abdominal aortic aneurysm, without rupture; D50.9 Iron deficiency anemia, unspecified; I25.10 Atherosclerotic heart disease of native coronary artery without angina pectoris; K21.9 Gastro-esophageal reflux disease without esophagitis; G40.909 Epilepsy, unspecified, not intractable, without status epilepticus; M54.9 Dorsalgia, unspecified; G89.29 Other chronic pain; G47.419 Narcolepsy without cataplexy; I08.3 Combined rheumatic disorders of mitral, aortic and tricuspid valves; R53.81 Other malaise; Z87.19 Personal history of other diseases of the digestive system; Z95.5 Presence of coronary angioplasty implant and graft; Z87.891 Personal history of nicotine dependence; I25.2 Old myocardial infarction; Z79.899 Other long term (current) drug therapy; Z79.891 Long term (current) use of opiate analgesic; Z95.818 Presence of other cardiac implants and grafts; W19.XXXA Unspecified fall, initial encounter
CPT/HCPCS: 36415; 71046; 80048; 80053; 80069; 82947; 83690; 83735; 83880; 84484; 85025; 85027; 93005; 93010; 93306; 96374; 96375; 96376; 97116; 97161; 97530; 99285-25; A6590; A9270; J1120; J1650; J1938; J2405; J3475